=== PATIENT | female | born 1930 | race Hispanic/Latino ===

== ENCOUNTER 2017-10-31 10:05 | Inpatient (IN) | payer MEDICARE, BC ==
[2017-10-31] MEDS ORDERED: Morphine 4 MG/ML VIAL IV ONE (11:19)
[2017-10-31] MEDS ORDERED: Lidocaine 2% Inj (20ml) INFIL ONE (11:25)
[2017-10-31] MEDS ORDERED: Lidocaine 2% PF (10 ml) Amp INFIL ONE (11:45)
[2017-10-31 11:51] LABS: BASO % 0.3 % (0.0-2.0); EOS % 0.2 % (0.0-4.0); HEMOGLOBIN 12.1 g/dL (11.0-16.0); LYMPH # 1.1 K/uL (1.0-4.3); LYMPH % 10.8 % (20.0-40.0); MEAN CELL VOLUME 91.8 fL (81.0-99.0); MEAN CORPUSCULAR HEMOGLOBIN 30.2 pg (27.0-31.0); MEAN CORPUSCULAR HGB CONC 32.9 g/dL (33.0-37.0); MEAN PLATELET VOLUME 8.8 fL (7.2-11.7); MONO # 0.7 K/uL (0.0-0.8); MONO % 6.8 % (0.0-10.0); NEUT # 8.2 K/uL (1.8-7.0); NEUT % 81.9 % (50.0-75.0); RBC 4.01 Mil/uL (3.80-5.20); RED CELL DISTRIBUTION WIDTH 14.6 % (11.5-14.5); WHITE BLOOD COUNT 10.1 K/uL (4.8-10.8)
[2017-10-31 12:06] LABS: ALB/GLOB RATIO 1.5 (1.0-2.1); CALCIUM 9.6 mg/dl (8.6-10.4)
--- NOTE | 2017-10-31 13:55 | C.PDOC ---
History Of Present Illness 87 year old female, whose PMHx includes HTN (compliant with medication), Depression and Anxiety, presents to the ED for evaluation of pain and swelling to her left wrist which began after she sustained a fall yesterday. Patient states she fell onto her outstretched hand on her kitchen floor. She notes 8/10 pain to the site. She denies head injury, LOC, extremity numbness/weakness. Time Seen by Provider: 10/31/17 10:17 Chief Complaint (Nursing): Upper Extremity Problem/Injury History Per: Patient History/Exam Limitations: no limitations Onset/Duration Of Symptoms: Hrs Current Symptoms Are (Timing): Still Present Quality: "Pain" Pain Scale Rating Of: 8 Additional History Per: Patient Past Medical History Reviewed: Historical Data, Nursing Documentation, Vital Signs Vital Signs: Last Vital Signs Temp 98.4 F 10/31/17 16:06 Pulse 75 10/31/17 16:06 Resp 18 10/31/17 16:06 BP 109/67 10/31/17 16:06 Pulse Ox 100 10/31/17 16:32 - Medical History PMH: Anxiety, Depression, HTN, Hypercholesterolemia Surgical History: No Surg Hx Family History: States: Unknown Family Hx - Social History Hx Alcohol Use: No Hx Substance Use: No - Immunization History Hx Tetanus Toxoid Vaccination: No Hx Influenza Vaccination: No Hx Pneumococcal Vaccination: No Review Of Systems Musculoskeletal: Positive for: Other (left wrist pain ) Neurological: Negative for: Weakness, Numbness, Other (head injury, LOC ) Physical Exam - Physical Exam Appears: Non-toxic, No Acute Distress Skin: Warm, Dry, Other (blue discoloration to left wrist. no skin breakdown ) Extremity: Normal ROM (fingers of left hand ), Capillary Refill (less than 2 seconds ), Deformity (left wrist ) Pulses: Left Radial: Normal Neurological/Psych: Oriented x3, Normal Speech, Normal Cognition, Normal Sensation ED Course And Treatment - Laboratory Results Result Diagrams: 10/31/17 11:45 10/31/17 11:45 ECG: Interpreted By Me, Viewed By Me ECG Rhythm: Sinus Rhythm, R BBB Rate From EC O2 Sat by Pulse Oximetry: 100 (on RA) Pulse Ox Interpretation: Normal - Other Rad CXR X-Ray: Interpreted by Me, Viewed By Me, Read By Radiologist Interpretation: Chest x-ray single frontal view. History: Shortness of breath. Comparison: None available. Findings: Biapical pleural thickening with upper lobe granulomatous changes. Diffuse increased interstitial lung markings. Mild patchy increased markings at the lung bases. Tortuous aorta. Top normal heart size. Degenerative changes in the spine. Impression: Biapical pleural thickening with upper lobe granulomatous changes. Diffuse increased interstitial lung markings. Mild patchy increased markings at the lung bases. Tortuous aorta. Top normal heart size. wrist XR X-Ray: Interpreted by Me, Viewed By Me, Read By Radiologist Interpretation: PROCEDURE: Left Wrist Radiographs. . HISTORY: post reduction. COMPARISON: Pre reduction x-ray left wrist. FINDINGS: BONES: A comminuted distal radial metaphyseal -epiphyseal fracture with impaction and overriding extension to the radiocarpal joint is noted. The bulk of the fracture is mostly towards the oriented. A volar apical fracture fragment is noted. Examination is made through casting material. JOINTS: No dislocation. First carpal metacarpal joint osteoarthrosis. First through metacarpal phalangeal joint osteoarthrosis. Second through 5th interphalangeal joint arthrosis. SOFT TISSUES: Normal. OTHER FINDINGS: None. IMPRESSION: Postreduction of a comminuted, impacted, otherwise nondisplaced distal radial fractures with radiocarpal joint extension. left forearm XR X-Ray: Interpreted by Me, Viewed By Me, Read By Radiologist Interpretation: PROCEDURE: Radiographs of the Left Forearm. HISTORY: fall. COMPARISON: Left wrist same day. TECHNIQUE: Frontal and lateral views obtained. FINDINGS: BONES: The comminuted distal radial metaphyseal to epiphyseal fracture with radiocarpal joint extension and mild impaction is renoted. JOINT SPACES: Incidentally noted are 1st carpal metacarpal joint osteoarthritic changes. OTHER FINDINGS: None. IMPRESSION: Distal radial comminuted fracture with radiocarpal joint extension. The fracture fragments are slightly impacted. No further displacement the appreciated. left wrist XR X-Ray: Interpreted by Me, Viewed By Me, Read By Radiologist Interpretation: PROCEDURE: Left Wrist Radiographs. . HISTORY: fall. COMPARISON: None. FINDINGS: BONES: A comminuted distal radial metaphyseal - epiphyseal fracture with impaction is present. Extension into the radiocarpal joint is noted. The bulk of the fracture is mostly slightly dorsally oriented A volar apical fracture fragment is noted. JOINTS: Normal. No dislocation. SOFT TISSUES: Normal. OTHER FINDINGS: None. IMPRESSION: Distal radial comminuted fracture with impaction and radiocarpal joint extension. Apart from the impaction no additional significant appearing displacement suggested Orthopedic Time Out: Side verified, Site verified, Patient ID confirmed Procedure: Fracture reduction Location: Wrist (left) Performed by: Attending Physician Type: Closed Other:: hematoma block Anesthetic: Lidocaine 2% (10 mL) Systemic Analgesia: Morphine (2mg) Capillary refill: Normal Patient tolerated procedure: Well Notes:: sugar tong splint applied Medical Decision Making Medical Decision Making: Progress: Bloodwork, CXR, EKG, CT upper extremity, left wrist XR, left elbow XR ordered and reviewed. Case discussed with Dr. Laguna (orthopedist corporate operations compliance manager), who asks for patent to be admitted to the OR so he can perform a full closure reduction under anesthesia. Case discussed with Dr. Rosales (patient's PMD), who agrees to admit the patient. Disposition Discussed With Dr.: Tyrone Laguna Counseled Patient/Family Regarding: Diagnosis - Disposition Disposition: HOSPITALIZED Disposition Time: 13:53 Condition: STABLE - POA Present On Arrival: None - Clinical Impression Clinical Impression: Fracture of bone, Colles' fracture - Scribe Statement The provider has reviewed the documentation as recorded by the Scribe (Lauren Silva) Provider Attestation: All medical record entries made by the Scribe were at my direction and personally dictated by me. I have reviewed the chart and agree that the record accurately reflects my personal performance of the history, physical exam, medical decision making, and the department course for this patient. I have also personally directed, reviewed, and agree with the discharge instructions and disposition. Decision To Admit - Pt Status Changed To: Hospital Disposition Of: Observation - . Bed Request Type: Regular Patient Diagnosis: Fracture of bone, Colles' fracture
--- NOTE | 2017-10-31 14:30 | RAD ---
Chest x-ray single frontal view History: Shortness of breath. Comparison: None available. Findings: Biapical pleural thickening with upper lobe granulomatous changes. Diffuse increased interstitial lung markings. Mild patchy increased markings at the lung bases. Tortuous aorta. Top normal heart size. Degenerative changes in the spine. Impression: Biapical pleural thickening with upper lobe granulomatous changes. Diffuse increased interstitial lung markings. Mild patchy increased markings at the lung bases. Tortuous aorta. Top normal heart size.
--- NOTE | 2017-10-31 14:54 | CP.PCM.HP ---
History of Present Illness - History of Present Illness History of Present Illness: Chief Complaint: fell on left arm Ms. Brantley is a 87 year old female with PMHx of HTN, Hypothyroidism, and Dementia presented to the ED s/p fall. Patient's sister, Kei, is POA she reports, patient was finishing up washing dishes, when she turned, became unbalanced and fell onto her left arm. Initially the patient refused to come to the ED but Kei noticed her arm was bruised, swollen, and painful to touch. Denied any LOC, headache, trauma to her elbow, or bilateral knees. Kei reports patient had 17 falls in 2017 due to the patient's unsteady gait. Patient refuses to use cane or walker to help support herself. 12 point ROS unremarkable , unless otherwise noted. PMHx: HTN, Hypothyroidism, Dementia PSHx: Denied Meds: As per OCT, reviewed and confirmed All: NKDA SHx: Denied any tobacco, ETOH, or illicit drug use FHx: Unremarkable POA: Kei Winchester - sister - [phone] Present on Admission - Present on Admission Any Indicators Present on Admission: No Past Patient History - Past Social History Smoking Status: Never Smoked - CARDIAC Hx Hypercholesterolemia: Yes Hx Hypertension: Yes - PSYCHIATRIC Hx Anxiety: Yes Hx Depression: Yes Hx Substance Use: No Meds Allergies/Adverse Reactions: Allergies Allergy/AdvReac Type Severity Reaction Status Date / Time No Known Allergies Allergy Verified 10/31/17 10:15 Physical Exam - Constitutional Appears: No Acute Distress - Head Exam Head Exam: NORMAL INSPECTION, NORMOCEPHALIC - Eye Exam Eye Exam: EOMI, Normal appearance, PERRL Pupil Exam: NORMAL ACCOMODATION - ENT Exam ENT Exam: Mucous Membranes Moist, Normal Exam - Neck Exam Neck exam: Positive for: Normal Inspection - Respiratory Exam Respiratory Exam: Clear to Auscultation Bilateral, NORMAL BREATHING PATTERN - Cardiovascular Exam Cardiovascular Exam: REGULAR RHYTHM - GI/Abdominal Exam GI & Abdominal Exam: Normal Bowel Sounds, Soft. absent: Distended, Tenderness - Rectal Exam Rectal Exam: Deferred - Extremities Exam Extremities exam: Positive for: normal inspection, pedal pulses present. Negative for: pedal edema, tenderness - Expanded Upper Extremities Exam Left Shoulder exam: absent: deformity, dislocation, ecchymosis, erythema, swelling, tenderness, tenderness over AC joint Neuro motor exam: finger 2-5 abduction intact, thumb abduction Neurosensory exam: 2-poit discrimination Vascular exam: radial pulse, normal capillary refill (Patient was seen s/p reduction, left arm candelaria bandaged and placed in sling ) - Neurological Exam Neurological exam: Alert, CN II-XII Intact, Oriented x3 - Psychiatric Exam Psychiatric exam: Normal Affect, Normal Mood - Skin Skin Exam: Dry, Intact, Normal Color, Warm Results - Vital Signs Recent Vital Signs: Last Vital Signs Temp 97.9 F 10/31/17 14:15 Pulse 72 10/31/17 14:15 Resp 18 10/31/17 14:15 BP 120/68 10/31/17 14:15 Pulse Ox 100 10/31/17 14:15 - Labs Result Diagrams: 10/31/17 11:45 10/31/17 11:45 Labs: Laboratory Results - last 24 hr 10/31/17 10/31/17 10/31/17 11:45 11:45 12:35 WBC 10.1 RBC 4.01 Hgb 12.1 Hct 36.8 MCV 91.8 MCH 30.2 MCHC 32.9 L RDW 14.6 H Plt Count 157 MPV 8.8 Neut % (Auto) 81.9 H Lymph % (Auto) 10.8 L [place] % (Auto) 6.8 Eos % (Auto) 0.2 Baso % (Auto) 0.3 Neut # (Auto) 8.2 H Lymph # (Auto) 1.1 [place] # (Auto) 0.7 Eos # (Auto) 0.0 Baso # (Auto) 0.0 Sodium 140 Potassium 5.0 Chloride 106 Carbon Dioxide 23 Anion Gap 17 BUN 42 H Creatinine 1.3 H Est GFR ( Amer) 47 Est GFR (Non-Af Amer) 39 Random Glucose 96 Calcium 9.6 Total Bilirubin 0.6 AST 34 ALT 11 Alkaline Phosphatase 42 Total Protein 6.7 Albumin 4.0 Globulin 2.7 Albumin/Globulin Ratio 1.5 Blood Type A POSITIVE Antibody Screen Negative Assessment & Plan - Assessment and Plan (Free Text) Assessment: Ms. Brantley is a 87 year old female with PMHx of HTN, Hypothyroidism, and Dementia presented to the ED s/p fall with left colles' fracture. Plan: Left Colles Fracture Dr. Laguna consulted - plan for OR tomorrow for closed reduction under anesthesia Patient is medically cleared for conscious sedation for reduction of left colles fracture. Unsteady Gait PT Eval Fall precautions HTN Resumed home medications Hypothyroidism Resumed home medications Dementia Resumed home medications DW Dr. Rosales, Sahara Moody DO, PGY-1
--- NOTE | 2017-10-31 14:54 | RAD ---
PROCEDURE: Left Wrist Radiographs. HISTORY: post reduction COMPARISON: Pre reduction x-ray left wrist FINDINGS: BONES: A comminuted distal radial metaphyseal -epiphyseal fracture with impaction and overriding extension to the radiocarpal joint is noted. The bulk of the fracture is mostly towards the oriented. A volar apical fracture fragment is noted. Examination is made through casting material. JOINTS: No dislocation First carpal metacarpal joint osteoarthrosis. First through metacarpal phalangeal joint osteoarthrosis. Second through 5th interphalangeal joint arthrosis. SOFT TISSUES: Normal. OTHER FINDINGS: None. IMPRESSION: Postreduction of a comminuted, impacted, otherwise nondisplaced distal radial fractures with radiocarpal joint extension.
--- NOTE | 2017-10-31 14:57 | RAD ---
PROCEDURE: Left Wrist Radiographs. HISTORY: fall COMPARISON: None. FINDINGS: BONES: A comminuted distal radial metaphyseal -epiphyseal fracture with impaction is present. Extension into the radiocarpal joint is noted. The bulk of the fracture is mostly slightly dorsally oriented A volar apical fracture fragment is noted. JOINTS: Normal. No dislocation. SOFT TISSUES: Normal. OTHER FINDINGS: None. IMPRESSION: Distal radial comminuted fracture with impaction and radiocarpal joint extension. Apart from the impaction no additional significant appearing displacement suggested
[2017-10-31] MEDS ORDERED: Sodium Chloride 0.9% 1,000 ML IV SCH (15:15)
--- NOTE | 2017-10-31 15:57 | RAD ---
PROCEDURE: Radiographs of the Left Forearm HISTORY: fall COMPARISON: Left wrist same day TECHNIQUE: Frontal and lateral views obtained. FINDINGS: BONES: The comminuted distal radial metaphyseal to epiphyseal fracture with radiocarpal joint extension and mild impaction is renoted. JOINT SPACES: Incidentally noted are 1st carpal metacarpal joint osteoarthritic changes OTHER FINDINGS: None. IMPRESSION: Distal radial comminuted fracture with radiocarpal joint extension. The fracture fragments are slightly impacted. No further displacement the appreciated.
[2017-10-31 16:17] LABS: INR 0.9; PROTHROMBIN TIME 10.4 SECONDS (9.7-12.2)
--- NOTE | 2017-10-31 16:36 | RAD ---
PROCEDURE: Radiographs of the left elbow. HISTORY: fall COMPARISON: No prior. FINDINGS: BONES: No cortical line fracture. . Tiny 1 to 2 mm ossifications posterior to the olecranon over some minimal fullness of the soft tissues here noted tiny flake chip osseous avulsions versus tiny loose bodies in the olecranon bursa are considerations. No radial head fracture noted. Ulnar coronoid spurring noted JOINTS: Normal. No osteoarthritis. SOFT TISSUES: Normal. JOINT EFFUSION: No anterior elbow joint effusion. Trace soft tissue fullness in the olecranon bursa location -a minimal olecranon bursitis here is possible OTHER FINDINGS: None IMPRESSION: No cortical line fractures seen. Elbow arthrosis No anterior elbow joint effusion. Possible small olecranon bursitis with tiny calcifications/ossifications here. Differential are tiny chip osseous avulsions tiny loose bodies olecranon bursal. The chronicity is not known.
--- NOTE | 2017-10-31 18:55 | CT ---
PROCEDURE: CT left wrist dated 10/31/2017 HISTORY: Left wrist fracture COMPARISON: Correlation made with prior radiographs earlier same day TECHNIQUE: Contiguous helical/transaxial images of the left left wrist obtained. Coronal and sagittal reformats were generated. This CT exam was performed using one or more of the following dose reduction techniques: Automated exposure control, adjustment of the mA and/or kV according to patient size, and/or use of iterative reconstruction technique. Radiation dose. Total DLP = 159.73 mGy -cm FINDINGS: BONES: Re- demonstrated is a comminuted impacted fracture of the distal right radius with slight dorsal displacement of distal fragments. No other fractures are identified. There are cystic changes seen in the lunate. Mild degenerative osteoarthritis the 1st metacarpal/ greater multangular articulation. There may also be some also appears to be some minor triscaphe degenerative osteoarthritis as well. Mild surrounding soft tissue swelling. No radiopaque foreign bodies. IMPRESSION: Comminuted slightly impacted fracture distal left radius. No other fractures. Cystic changes seen within the lunate bone. Mild degenerative osteoarthritis as detailed above.
--- NOTE | 2017-10-31 20:08 | CP.PCM.CON ---
History of Present Illness - History of Present Illness History of Present Illness: 87 year old female with PMH= HTN, Hypothyroidism, and Dementia presented to the ED s/p fall. Patient's sister, Kei, is [place] she reports, patient was finishing up washing dishes, when she turned, became unbalanced and fell onto her left arm. Initially the patient refused to come to the ED but Kei noticed her arm was bruised, swollen, and painful to touch. Denied any LOC, headache, trauma to her elbow, or bilateral knees. Kei reports patient had 17 falls in 2017 due to the patient's unsteady gait. Patient refuses to use cane or walker to help support herself. 12 point ROS unremarkable, unless otherwise noted. After evaluation by ER staff and review of imaging, she was diagnosed with R wrist displaced distal radius fracture with significant comminution. Orthopedic consultation was placed and I evaluated the pt as an inpt 10/31/17. She was placed in a long arm splint by ER staff and admitted to the medical service under Dr Rosales. She would need placement and disposition help. During the admission, she would also undergo closed treatment of the fracture with manipulation to provide better alignment for the fracture to heal as she was not a good candidate for any surgery/ ORIF. Review of imaging: Xrays R wrist done in ER 10/31/17: +++ displaced/comminuted distal radius fracture with loss of radial height/tilt, loss of wrist alignment and subluxation of wrist joint. Past Patient History - Past Social History Smoking Status: Never Smoked - CARDIAC Hx Hypercholesterolemia: Yes Hx Hypertension: Yes - PSYCHIATRIC Hx Anxiety: Yes Hx Depression: Yes Hx Substance Use: No Meds Home Medications: Home Medication List Medication Instructions Recorded Confirmed Type Acetaminophen [Tylenol 325mg tab] 650 mg PO Q6 PRN tab 11/05/17 Rx Pantoprazole [Protonix EC Tab] 40 mg PO DAILY ect 11/05/17 Rx Allergies/Adverse Reactions: Allergies Allergy/AdvReac Type Severity Reaction Status Date / Time No Known Allergies Allergy Verified 10/31/17 10:15 - Medications Medications: Current Medications Docusate Sodium (Colace) 100 mg PO BID [facility] Last Admin: 10/31/17 18:08 Dose: 100 mg Enalapril Maleate (Vasotec) 5 mg PO DAILY [facility] Sodium Chloride (Sodium Chloride 0.9%) 1,000 mls @ 100 mls/hr IV .Q10H [facility]ORY Stop: 11/01/17 01:14 Last Admin: 10/31/17 15:18 Dose: 100 mls/hr Ibuprofen (Motrin Tab) 400 mg PO Q8H PRN PRN Reason: Pain, Mild (1-3) Levothyroxine Sodium (Synthroid) 50 mcg PO 0630 [facility] Kim Carbonate (Kim Carbonate 300mg) 300 mg PO DAILY [facility] Memantine (Namenda) 10 mg PO DAILY [facility] Pantoprazole Sodium (Protonix Ec Tab) 40 mg PO DAILY [facility] Results - Vital Signs Recent Vital Signs: Last Vital Signs Temp 98.5 F 10/31/17 16:30 Pulse 76 10/31/17 16:30 Resp 18 10/31/17 16:30 BP 128/64 10/31/17 16:30 Pulse Ox 100 10/31/17 16:36 - Labs Result Diagrams: 10/31/17 11:45 11/01/17 06:19 Labs: Laboratory Results - last 24 hr 10/31/17 10/31/17 10/31/17 11:45 11:45 12:35 WBC 10.1 RBC 4.01 Hgb 12.1 Hct 36.8 MCV 91.8 MCH 30.2 MCHC 32.9 L RDW 14.6 H Plt Count 157 MPV 8.8 Neut % (Auto) 81.9 H Lymph % (Auto) 10.8 L [place] % (Auto) 6.8 Eos % (Auto) 0.2 Baso % (Auto) 0.3 Neut # (Auto) 8.2 H Lymph # (Auto) 1.1 [place] # (Auto) 0.7 Eos # (Auto) 0.0 Baso # (Auto) 0.0 PT INR APTT Sodium 140 Potassium 5.0 Chloride 106 Carbon Dioxide 23 Anion Gap 17 BUN 42 H Creatinine 1.3 H Est GFR ( Amer) 47 Est GFR (Non-Af Amer) 39 Random Glucose 96 Calcium 9.6 Total Bilirubin 0.6 AST 34 ALT 11 Alkaline Phosphatase 42 Total Protein 6.7 Albumin 4.0 Globulin 2.7 Albumin/Globulin Ratio 1.5 Blood Type A POSITIVE Antibody Screen Negative 10/31/17 16:03 WBC RBC Hgb Hct MCV MCH MCHC RDW Plt Count MPV Neut % (Auto) Lymph % (Auto) [place] % (Auto) Eos % (Auto) Baso % (Auto) Neut # (Auto) Lymph # (Auto) [place] # (Auto) Eos # (Auto) Baso # (Auto) PT 10.4 INR 0.9 APTT 29 Sodium Potassium Chloride Carbon Dioxide Anion Gap BUN Creatinine Est GFR ( Amer) Est GFR (Non-Af Amer) Random Glucose Calcium Total Bilirubin AST ALT Alkaline Phosphatase Total Protein Albumin Globulin Albumin/Globulin Ratio Blood Type Antibody Screen Assessment & Plan (1) Colles' fracture Assessment and Plan: 87 yo female, s/p fall at home landing on Left wrist 10/30/17, admitted through ER at on 10/31/17, Dx= Left wrist displaced distal radius fracture/ dislocation PLAN: Left wrist: -indicated for closed reduction under sedation/ anesthesia and placement in long arm splint vs cast -risks, benefits, alternatives d/w pt at length, all questions answered -best chance of obtaining anatomic closed reduction of distal radius fracture and avoiding ORIF / open surgery / fixation is to undergo the closed reduction under anesthesia this admission before healing begins and closed manipulation of the fracture is not likely -placed on OR schedule for 1st case in morning, 7 AM -NPO after 10pm -IVFH -hold DVT proph till after procedure -medical clearance/optimization needed, Dr. Rosales is PCP -strict NWB/elevation L wrist above level of heart -pain control, minimize narcotic use, consider standing tyelnol 1000mg Q8hr -will follow -will work with SW/CM to determine optimal placement after procedure as pt is severely deconditioned. -please contact me at [phone] with any updates, questions, or concerns Thank you for allowing me to contribute to the care of your patient. Tyrone Guerin MD Orthopedic Surgery Status: Acute
[2017-11-01] MEDS: Levothyroxine 50 MCG TAB PO SCH (05:33)
[2017-11-01 07:09] LABS: CALCIUM 8.6 mg/dl (8.6-10.4)
[2017-11-01] MEDS ORDERED: Etomidate 20 mg/10ml Inj IV ONE (07:24)
[2017-11-01] MEDS ORDERED: Propofol 10 mg/ml Inj (20 ML) ONE (07:25)
[2017-11-01] MEDS ORDERED: Morphine 4 MG/ML VIAL ONE ×2 (07:48→07:51)
[2017-11-01] MEDS ORDERED: Lactated Ringer's 1,000 ML IV ONE (08:07)
[2017-11-01] MEDS: Pantoprazole 40 mg EC Tab PO SCH (10:22)
--- NOTE | 2017-11-01 10:23 | CP.PCM.PN ---
Subjective - Date & Time of Evaluation Date of Evaluation: 11/01/17 Time of Evaluation: 09:00 - Subjective Subjective: Patient was seen and examined at bedside. Patient is s/p closed reduction with anesthesia. Pain is well controlled. Patient worked with PT and it was recommended patient go to [facility] due to her unsteady gait. 12 point ROS unremarkable. Objective - Vital Signs/Intake and Output Vital Signs (last 24 hours): Temp Pulse Resp BP Pulse Ox 98 F 64 18 114/55 L 98 11/01/17 09:35 11/01/17 09:35 11/01/17 09:35 11/01/17 09:35 11/01/17 09:35 Intake and Output: 11/01/17 11/01/17 06:59 18:59 Intake Total 400 Balance 400 - Medications Medications: Current Medications Docusate Sodium (Colace) 100 mg PO BID [facility] Last Admin: 10/31/17 18:08 Dose: 100 mg Enalapril Maleate (Vasotec) 5 mg PO DAILY [facility] Ibuprofen (Motrin Tab) 400 mg PO Q8H PRN PRN Reason: Pain, Mild (1-3) Levothyroxine Sodium (Synthroid) 50 mcg PO 0630 [facility] Last Admin: 11/01/17 05:33 Dose: 50 mcg [place] Carbonate ([place] Carbonate 300mg) 300 mg PO HS [facility] Last Admin: 10/31/17 22:19 Dose: 300 mg Memantine (Namenda) 10 mg PO Q12H [facility] Last Admin: 10/31/17 22:19 Dose: 10 mg Pantoprazole Sodium (Protonix Ec Tab) 40 mg PO DAILY [facility] - Labs Labs: 10/31/17 11:45 11/01/17 06:19 PT 10.4 SECONDS (9.7-12.2) 10/31/17 16:03 INR 0.9 10/31/17 16:03 APTT 29 SECONDS (21-34) 10/31/17 16:03 - Constitutional Appears: No Acute Distress - Head Exam Head Exam: NORMAL INSPECTION, NORMOCEPHALIC - Eye Exam Eye Exam: EOMI, Normal appearance, PERRL Pupil Exam: NORMAL ACCOMODATION - ENT Exam ENT Exam: Mucous Membranes Moist, Normal Exam - Neck Exam Neck Exam: Normal Inspection - Respiratory Exam Respiratory Exam: Clear to Ausculation Bilateral, NORMAL BREATHING PATTERN - Cardiovascular Exam Cardiovascular Exam: REGULAR RHYTHM - GI/Abdominal Exam GI & Abdominal Exam: Soft, Normal Bowel Sounds. absent: Distended, Tenderness - Rectal Exam Rectal Exam: Deferred - Extremities Exam Extremities Exam: Normal Inspection. absent: Pedal Edema, Tenderness - Neurological Exam Neurological Exam: Alert, Awake, Oriented x3 - Psychiatric Exam Psychiatric exam: Normal Affect, Normal Mood - Skin Skin Exam: Dry, Intact, Normal Color, Warm Assessment and Plan - Assessment and Plan (Free Text) Assessment: Ms. Brantley is a 87 year old female with PMHx of HTN, Hypothyroidism, and Dementia presented to the ED s/p fall with left colles' fracture. Plan: Left Colles Fracture Patient is medically cleared for conscious sedation for reduction of left colles fracture Dr. Laguna consulted - S/P closed reduction under anesthesia 11/01/17 Unsteady Gait PT Eval - recommend FRANCISCO - working with case management for authorization and placement Fall precautions HTN Resumed home medications Hypothyroidism Resumed home medications Dementia Resumed home medications DW Dr. Rosales, Sahara Moody DO, PGY-1
--- NOTE | 2017-11-01 11:13 | RAD ---
PROCEDURE: Intraoperative Fluoroscopy. HISTORY: Left forearm fracture FINDINGS: Fluoroscopic assistance was provided for left distal radial fracture closed reduction. Please refer to the operative report from LEODAN Cabezas, , MD SARAHI.
--- NOTE | 2017-11-01 13:35 | CARD ---
APPROVED REPORT EKG Measurement Heart [id number] LA [id number] <Conclusion> Normal sinus rhythm Right bundle branch block Abnormal ECG
[2017-11-02] MEDS: Levothyroxine 50 MCG TAB PO SCH (05:50)
[2017-11-02] MEDS: Pantoprazole 40 mg EC Tab PO SCH (10:22)
--- NOTE | 2017-11-02 18:02 | CP.PCM.PN ---
Subjective - Date & Time of Evaluation Date of Evaluation: 11/02/17 Time of Evaluation: 18:01 - Subjective Subjective: patient comfortable complaining ofy of pain in the lefthand. no nausea vomiting Poor intake Ally unstable 10/31/17 11:45 11/01/17 06:19 Temp Pulse Resp BP Pulse Ox 98.1 F 80 20 104/61 96 11/02/17 15:00 11/02/17 15:00 11/02/17 15:00 11/02/17 15:00 11/02/17 15:00 87 female schizophrenia bipolar On lithium Left radial fracture status post a closed reduction For rehabilitation evaluation Objective - Vital Signs/Intake and Output Vital Signs (last 24 hours): Temp Pulse Resp BP Pulse Ox 98.1 F 80 20 104/61 96 11/02/17 15:00 11/02/17 15:00 11/02/17 15:00 11/02/17 15:00 11/02/17 15:00 - Medications Medications: Current Medications Acetaminophen (Tylenol 325mg Tab) 650 mg PO Q6 PRN PRN Reason: Pain, Mild (1-3) Docusate Sodium (Colace) 100 mg PO BID [facility] Last Admin: 11/02/17 17:56 Dose: 100 mg Enalapril Maleate (Vasotec) 5 mg PO DAILY [facility] Last Admin: 11/02/17 10:22 Dose: 5 mg Levothyroxine Sodium (Synthroid) 50 mcg PO 0630 [facility] Last Admin: 11/01/17 05:33 Dose: 50 mcg [place] Carbonate ([place] Carbonate 300mg) 300 mg PO HS [facility] Last Admin: 11/01/17 22:06 Dose: 300 mg Memantine (Namenda) 10 mg PO Q12H [facility] Last Admin: 11/02/17 09:15 Dose: 10 mg Pantoprazole Sodium (Protonix Ec Tab) 40 mg PO DAILY [facility] Last Admin: 11/02/17 10:22 Dose: 40 mg - Labs Labs: 10/31/17 11:45 11/01/17 06:19 PT 10.4 SECONDS (9.7-12.2) 10/31/17 16:03 INR 0.9 10/31/17 16:03 APTT 29 SECONDS (21-34) 10/31/17 16:03
[2017-11-03] MEDS: Levothyroxine 50 MCG TAB PO SCH (06:02)
[2017-11-03] MEDS: Pantoprazole 40 mg EC Tab PO SCH (09:21)
[2017-11-04] MEDS: Levothyroxine 50 MCG TAB PO SCH (05:57)
[2017-11-04] MEDS: Pantoprazole 40 mg EC Tab PO SCH (09:55)
--- NOTE | 2017-11-04 10:29 | CP.PCM.PN ---
Subjective - Date & Time of Evaluation Date of Evaluation: 11/04/17 Time of Evaluation: 09:00 - Subjective Subjective: Patient was seen admitted and examined at bedside. Patient is s/p closed reduction with anesthesia on 11/01/17. Pain is well controlled. Patient worked with PT and it was recommended patient go to [facility] due to her unsteady gait. 12 point ROS unremarkable. Pending [facility] approval - anticipate discharge tomorrow 11/05/17. Objective - Vital Signs/Intake and Output Vital Signs (last 24 hours): Temp Pulse Resp BP Pulse Ox 98 F 80 18 92/52 L 97 11/04/17 08:20 11/04/17 09:54 11/04/17 08:20 11/04/17 09:54 11/04/17 08:20 - Medications Medications: Current Medications Acetaminophen (Tylenol 325mg Tab) 650 mg PO Q6 PRN PRN Reason: Pain, Mild (1-3) Last Admin: 11/03/17 23:24 Dose: 650 mg Docusate Sodium (Colace) 100 mg PO BID [facility] Last Admin: 11/04/17 09:55 Dose: 100 mg Enalapril Maleate (Vasotec) 5 mg PO DAILY [facility] Last Admin: 11/04/17 09:55 Dose: Not Given Levothyroxine Sodium (Synthroid) 50 mcg PO 0630 [facility] Last Admin: 11/04/17 05:57 Dose: 50 mcg [place] Carbonate ([place] Carbonate 300mg) 300 mg PO HS [facility] Last Admin: 11/03/17 21:25 Dose: 300 mg Memantine (Namenda) 10 mg PO Q12H [facility] Last Admin: 11/04/17 09:55 Dose: 10 mg Pantoprazole Sodium (Protonix Ec Tab) 40 mg PO DAILY [facility] Last Admin: 11/04/17 09:55 Dose: 40 mg - Labs Labs: 10/31/17 11:45 11/01/17 06:19 PT 10.4 SECONDS (9.7-12.2) 10/31/17 16:03 INR 0.9 10/31/17 16:03 APTT 29 SECONDS (21-34) 10/31/17 16:03 - Additional Findings Additional findings: - Constitutional Appears: No Acute Distress - Head Exam Head Exam: NORMAL INSPECTION, NORMOCEPHALIC - Eye Exam Eye Exam: EOMI, Normal appearance, PERRL Pupil Exam: NORMAL ACCOMODATION - ENT Exam ENT Exam: Mucous Membranes Moist, Normal Exam - Neck Exam Neck Exam: Normal Inspection - Respiratory Exam Respiratory Exam: Clear to Ausculation Bilateral, NORMAL BREATHING PATTERN - Cardiovascular Exam Cardiovascular Exam: REGULAR RHYTHM - GI/Abdominal Exam GI & Abdominal Exam: Soft, Normal Bowel Sounds. absent: Distended, Tenderness - Rectal Exam Rectal Exam: Deferred - Extremities Exam Extremities Exam: Normal Inspection. Left arm in cast, candelaria bandage. Full ROM of digits. absent: Pedal Edema, Tenderness - Neurological Exam Neurological Exam: Alert, Awake, Oriented x3 - Psychiatric Exam Psychiatric exam: Normal Affect, Normal Mood - Skin Skin Exam: Dry, Intact, Normal Color, Warm Assessment and Plan - Assessment and Plan (Free Text) Assessment: Ms. Brantley is a 87 year old female with PMHx of HTN, Hypothyroidism, Bipolar Disorder and Dementia presented to the ED s/p fall with left colles' fracture. Plan: Left Colles Fracture Patient is medically cleared for conscious sedation for reduction of left colles fracture Dr. Laguna consulted - S/P closed reduction under anesthesia 11/01/17 Unsteady Gait PT Eval - recommend FRANCISCO - working with case management for authorization and placement- anticipate discharge tomorrow 11/05/17 Fall precautions HTN Resumed home medications Hypothyroidism Resumed home medications Bipolar Disorder Resumed home medications Dementia Resumed home medications DW Dr. Rosales, Saahra Moody DO, PGY-1
--- NOTE | 2017-11-04 11:56 | CP.PCM.PN ---
Subjective - Date & Time of Evaluation Date of Evaluation: 11/04/17 Time of Evaluation: 13:46 - Subjective Subjective: Ortho f/u Dr. Barrios Patient states she has pain in her wrist but it is controlled. Denies numbness/ tinglign. Objective - Vital Signs/Intake and Output Vital Signs (last 24 hours): Temp Pulse Resp BP Pulse Ox 98 F 80 18 92/52 L 97 11/04/17 08:20 11/04/17 09:54 11/04/17 08:20 11/04/17 09:54 11/04/17 08:20 - Medications Medications: Current Medications Acetaminophen (Tylenol 325mg Tab) 650 mg PO Q6 PRN PRN Reason: Pain, Mild (1-3) Last Admin: 11/03/17 23:24 Dose: 650 mg Docusate Sodium (Colace) 100 mg PO BID [facility] Last Admin: 11/04/17 09:55 Dose: 100 mg Enalapril Maleate (Vasotec) 5 mg PO DAILY [facility] Last Admin: 11/04/17 09:55 Dose: Not Given Levothyroxine Sodium (Synthroid) 50 mcg PO 0630 [facility] Last Admin: 11/04/17 05:57 Dose: 50 mcg [place] Carbonate ([place] Carbonate 300mg) 300 mg PO HS [facility] Last Admin: 11/03/17 21:25 Dose: 300 mg Memantine (Namenda) 10 mg PO Q12H [facility] Last Admin: 11/04/17 09:55 Dose: 10 mg Pantoprazole Sodium (Protonix Ec Tab) 40 mg PO DAILY [facility] Last Admin: 11/04/17 09:55 Dose: 40 mg - Labs Labs: 10/31/17 11:45 11/01/17 06:19 PT 10.4 SECONDS (9.7-12.2) 10/31/17 16:03 INR 0.9 10/31/17 16:03 APTT 29 SECONDS (21-34) 10/31/17 16:03 - Extremities Exam Additional comments: LUE: cast intact, fingers warm, good cap refill. Full ROM fingers/thumb with good strength, sensation intact to med/rad/uln nerves, no swelling to fingers Assessment and Plan (1) Displaced fracture of distal end of left radius Assessment & Plan: POD#3 s/p closed reduction and long arm cast application ortho stable for d/c PT/OT NWB f/u in office in 10-14 days, call for appt [phone] d/w Dr. Barrios, agrees with above Status: Acute
[2017-11-05 00:49] VITALS: RESP 20; O2SAT 96
[2017-11-05] MEDS: Levothyroxine 50 MCG TAB PO SCH (05:48)
--- NOTE | 2017-11-05 07:54 | CP.PCM.DIS ---
Provider - Provider Date of Admission: 11/02/17 13:27 Attending physician: Noe Rosales MD Time Spent in preparation of Discharge (in minutes): 55 Hospital Course - Lab Results Lab Results: Most Recent Lab Values WBC 10.1 K/uL (4.8-10.8) 10/31/17 11:45 RBC 4.01 Mil/uL (3.80-5.20) 10/31/17 11:45 Hgb 12.1 g/dL (11.0-16.0) 10/31/17 11:45 Hct 36.8 % (34.0-47.0) 10/31/17 11:45 MCV 91.8 fL (81.0-99.0) 10/31/17 11:45 MCH 30.2 pg (27.0-31.0) 10/31/17 11:45 MCHC 32.9 g/dL (33.0-37.0) L 10/31/17 11:45 RDW 14.6 % (11.5-14.5) H 10/31/17 11:45 Plt Count 157 K/uL (130-400) 10/31/17 11:45 MPV 8.8 fL (7.2-11.7) 10/31/17 11:45 Neut % (Auto) 81.9 % (50.0-75.0) H 10/31/17 11:45 Lymph % (Auto) 10.8 % (20.0-40.0) L 10/31/17 11:45 [place] % (Auto) 6.8 % (0.0-10.0) 10/31/17 11:45 Eos % (Auto) 0.2 % (0.0-4.0) 10/31/17 11:45 Baso % (Auto) 0.3 % (0.0-2.0) 10/31/17 11:45 Neut # (Auto) 8.2 K/uL (1.8-7.0) H 10/31/17 11:45 Lymph # (Auto) 1.1 K/uL (1.0-4.3) 10/31/17 11:45 [place] # (Auto) 0.7 K/uL (0.0-0.8) 10/31/17 11:45 Eos # (Auto) 0.0 K/uL (0.0-0.7) 10/31/17 11:45 Baso # (Auto) 0.0 K/uL (0.0-0.2) 10/31/17 11:45 PT 10.4 SECONDS (9.7-12.2) 10/31/17 16:03 INR 0.9 10/31/17 16:03 APTT 29 SECONDS (21-34) 10/31/17 16:03 Sodium 141 mmol/L (132-148) 11/01/17 06:19 Potassium 4.8 mmol/L (3.6-5.2) 11/01/17 06:19 Chloride 108 mmol/L (98-107) H 11/01/17 06:19 Carbon Dioxide 25 mmol/L (22-30) 11/01/17 06:19 Anion Gap 12 (10-20) 11/01/17 06:19 BUN 35 mg/dL (7-17) H 11/01/17 06:19 Creatinine 1.3 mg/dL (0.7-1.2) H 11/01/17 06:19 Est GFR ( Amer) 47 11/01/17 06:19 Est GFR (Non-Af Amer) 39 11/01/17 06:19 Random Glucose 88 mg/dL (65-105) 11/01/17 06:19 Calcium 8.6 mg/dl (8.6-10.4) 11/01/17 06:19 Total Bilirubin 0.6 mg/dL (0.2-1.3) 10/31/17 11:45 AST 34 U/L (14-36) 10/31/17 11:45 ALT 11 U/L (9-52) 10/31/17 11:45 Alkaline Phosphatase 42 U/L (38-126) 10/31/17 11:45 Total Protein 6.7 g/dL (6.3-8.3) 10/31/17 11:45 Albumin 4.0 g/dL (3.5-5.0) 10/31/17 11:45 Globulin 2.7 gm/dL (2.2-3.9) 10/31/17 11:45 Albumin/Globulin Ratio 1.5 (1.0-2.1) 10/31/17 11:45 Blood Type A POSITIVE 10/31/17 12:35 Antibody Screen Negative 10/31/17 12:35 - Hospital Course Hospital Course: Upon Admission: Chief Complaint: fell on left arm Ms. Brantley is a 87 year old female with PMHx of HTN, Hypothyroidism, and Dementia presented to the ED s/p fall. Patient's sister, Kei, is POA she reports, patient was finishing up washing dishes, when she turned, became unbalanced and fell onto her left arm. Initially the patient refused to come to the ED but Kei noticed her arm was bruised, swollen, and painful to touch. Denied any LOC, headache, trauma to her elbow, or bilateral knees. Kei reports patient had 17 falls in 2017 due to the patient's unsteady gait. Patient refuses to use cane or walker to help support herself. 12 point ROS unremarkable , unless otherwise noted. PMHx: HTN, Hypothyroidism, Dementia PSHx: Denied Meds: As per MAR, reviewed and confirmed All: NKDA SHx: Denied any tobacco, ETOH, or illicit drug use FHx: Unremarkable POA: Kei Winchester - sister - [phone] Throughout Hospital Course: Ms. Brantley is a 87 year old female with PMHx of HTN, Hypothyroidism, Bipolar Disorder and Dementia presented to the ED s/p fall with left colles' fracture. Plan: Left Colles Fracture Patient is medically cleared for conscious sedation for reduction of left colles fracture Dr. Laguna consulted - S/P closed reduction under anesthesia 11/01/17 PT/OT, NWB f/u in office in 10-14 days, call for appt [phone] Unsteady Gait PT Eval - recommend FRANCISCO - working with case management for authorization and placement Fall precautions HTN Resumed home medications Hypothyroidism Resumed home medications Bipolar Disorder Resumed home medications Dementia Resumed home medications This is a brief summary of the patient's hospital course. Please review EMR for the full record. Discharge Exam - Additional Findings Additional findings: - Constitutional Appears: No Acute Distress - Head Exam Head Exam: NORMAL INSPECTION, NORMOCEPHALIC - Eye Exam Eye Exam: EOMI, Normal appearance, PERRL Pupil Exam: NORMAL ACCOMODATION - ENT Exam ENT Exam: Mucous Membranes Moist, Normal Exam - Neck Exam Neck Exam: Normal Inspection - Respiratory Exam Respiratory Exam: Clear to Ausculation Bilateral, NORMAL BREATHING PATTERN - Cardiovascular Exam Cardiovascular Exam: REGULAR RHYTHM - GI/Abdominal Exam GI & Abdominal Exam: Soft, Normal Bowel Sounds. absent: Distended, Tenderness - Rectal Exam Rectal Exam: Deferred - Extremities Exam Extremities Exam: LUE: cast intact, fingers warm, good cap refill. Full ROM fingers/thumb with good strength, sensation intact to med/rad/uln nerves, no swelling to fingers. absent: Pedal Edema, Tenderness - Neurological Exam Neurological Exam: Alert, Awake, Oriented x3 - Psychiatric Exam Psychiatric exam: Normal Affect, Normal Mood - Skin Skin Exam: Dry, Intact, Normal Color, Warm Discharge Plan - Follow Up Plan Condition: STABLE Disposition: REHAB FACILITY/REHAB UNIT Instructions: Colles' Fracture (DC) Additional Instructions: Please follow up with the Orthopedist Dr. Guerin in 10- 14 days, call for appt [phone] Referrals: Tyrone Laguna MD [Staff Provider] - Noe Rosales MD [Staff Provider] -
[2017-11-05 08:10] VITALS: PULSE 74; TEMP 98.2
[2017-11-05] MEDS: Pantoprazole 40 mg EC Tab PO SCH (10:32)
[2017-11-05 10:33] VITALS: BP 119/74
--- NOTE | 2017-11-09 12:21 | PCM.SURG1 ---
Surgeon's Initial Post Op Note - Surgeon's Notes Surgeon: Tyrone Guerin MD Account Representative: None Type of Anesthesia: General LMA Pre-Operative Diagnosis: Right wrist displaced / comminuted distal radius fracture Operative Findings: Right wrist displaced / comminuted distal radius fracture Post-Operative Diagnosis: Right wrist displaced / comminuted distal radius fracture Operation Performed: Right wrist: #1 closed reduction/ manipulation distal radius fracture. #2 placement in long arm cast Specimen/Specimens Removed: spcimen = none. complications= none. implants= none Estimated Blood Loss: EBL {In ML}: 0 Blood Products Given: N/A Drains Used: No Drains Post-Op Condition: Good Date of Surgery/Procedure: 11/01/17 Time of Surgery/Procedure: 07:00
--- NOTE | 2017-11-11 07:09 | OP ---
PROCEDURE DATE: 11/01/17 PREOPERATIVE DIAGNOSES: Left wrist: 1. Displaced/comminuted distal radius fracture. 2. Subluxation of radiocarpal joint. POSTOPERATIVE DIAGNOSES: Left wrist: 1. Displaced/comminuted distal radius fracture. 2. Subluxation of radiocarpal joint. PROCEDURES: Left wrist: 1. Closed reduction/closed treatment with manipulation of distal radius fracture. 2. Closed reduction/closed treatment with manipulation of radiocarpal subluxation/dislocation. 3. Placement and well-padded long arm cast. SURGEON: Tyrone Guerin MD SEAWEED HARVESTER: None TYPE OF ANESTHESIA: General LMA anesthesia. SPECIMENS: None. COMPLICATIONS: None. IMPLANTS: None. ESTIMATED BLOOD LOSS: 0 mL. DRAINS: None. DISPOSITION: The patient was extubated and transferred to the PACU in stable condition and tolerated the procedure well. INDICATIONS FOR THE PROCEDURE: The patient is an 87-year-old female with a past medical history significant for hypertension, hypothyroidism, and severe dementia who presented to the emergency room at [facility] on 10/31/2017 with left wrist pain and deformity. The patient is demented and her sister, Margi Brantley, is the power of collections attorney. She gave history on her behalf. She stated that while the patient was in the kitchen, she lost her balance when she turned suddenly and fell landing on her left arm. This resulted in immediate pain and swelling and bruising with deformity to the left wrist. Initially, the patient was refusing to leave the house but eventually the next day, there were able to convince her to go the ER. After evaluation by ER staff and reviewed imaging, she was diagnosed with a left wrist displaced distal radius fracture with significant comminution and subluxation of radiocarpal joint. Orthopedic consultation was placed and I evaluated the patient as an inpatient on 10/31/2017. She was admitted to the medical service under Dr. Rosales for the distal radius fracture treatment as well as disposition and placement/evaluation for deconditioning and need for rehabilitation facility placement. I reviewed the imaging with the ER attending and initial instructions to place the patient in a sugar-tong splint, as she was neurovascularly intact, were carried out. The patient had a significant injury, and there was a good chance in a control of setting with adequate anesthesia, we will be able to establish an anatomic closed reduction and placement in a long-arm cast or splint. 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 We also determined after speaking to Dr. Rosales that the patient is not a good candidate for any thought of surgical intervention including any open reduction and internal fixation that would be needed if the fracture was not reduced. She was indicated for left wrist closed reduction of the fracture and the radiocarpal subluxation and placement in a long-arm cast under anesthesia. Dr. Rosales provided medical clearance and the patient was taken to the OR the next morning. Consent was provided by her sister, Margi, who is the power of collections attorney and the risks, benefits and alternatives of the procedure were discussed at length with her. The risk including but not limited to malunion, nonunion, development of compartment syndrome, skin issues from the cast and pressure, contractures, stiffness, and anesthesia reactions. After answering all of her questions stated that she understood the risks and wish to proceed with the procedure. PROCEDURE IN DETAIL: The patient was identified in the preoperative holding area and the left wrist was marked for surgery. Once again as described above, the risks, benefits, and alternatives of the procedure were discussed at length with the patient's power of collections attorney, her sister, Margi. Informed consent was obtained. After a brief discussion with anesthesia staff, the patient was taken to the operating room and placed in a well-padded operating room table with all bony prominences and superficial neurovascular structures well-padded. General LMA anesthesia was placed successfully without any complications. Final timeout was done with the surgeon, anesthesia staff, OR staff, all in agreement with the patient, procedure being done and extremity being operated on. The left finger tips were placed in Kerlix traction from an IV pole with our metallurgical laboratory assistant stabilizing the arm and pulling traction towards the ground. A closed reduction maneuver was carried out after prereduction x-rays were taken with biplanar fluoroscopic imaging showing the displaced/comminuted distal radius fracture and the radiocarpal joint subluxation. The closed reduction maneuver was carried out and the resulting anatomical alignment was confirmed with biplanar fluoroscopic imaging as something can be obtained. A layer of cast padding was then applied and a well-padded long-arm cast was placed. The closed reduction maneuver was carried out once again with a good mold placed on the cast holding the reduction. Biplanar fluoroscopic imaging was then taken to confirm an anatomic reduction of the distal radius fracture and the radiocarpal subluxation/dislocation. Once the cast hardened, the patient was then extubated and transferred to the PACU in stable condition and tolerated the procedure well. DISPOSITION: The patient from orthopedic point of view can be discharged today but due to the deconditioning globally as she has demonstrated, she would benefit greatly from placement in a facility. She will work with case management and social media sr strategy manager to determine optimal placement and insurance issues. I will monitor her progress as an inpatient. Once she is discharged, she can follow up in my office at [facility] and arrangements will be made to ensure her followup. Tyrone Guerin MD
== END 2017-11-05 15:33 | DRG 563 ==
LOC: C.ER 10:05 → C.9E 13:55 → C.6T 15:43 → OBSVTOIN 11-02 13:27
PROVIDERS: ADMIT Internal Medicine; ATTEND Internal Medicine
PROC: 0PSNXZZ Reposition Left Carpal, External Approach (ICD-10-PCS; 2017-11-01)
PROC: 0PSJXZZ Reposition Left Radius, External Approach (ICD-10-PCS; principal; 2017-11-01 07:15)
DX: S52.532A Colles' fracture of left radius, initial encounter for closed fracture (principal); S62.102A Fracture of unspecified carpal bone, left wrist, initial encounter for closed fracture; E03.9 Hypothyroidism, unspecified; E78.00 Pure hypercholesterolemia, unspecified; F03.90 Unspecified dementia, unspecified severity, without behavioral disturbance, psychotic disturbance, mood disturbance, and anxiety; F20.9 Schizophrenia, unspecified; F31.9 Bipolar disorder, unspecified; W18.39XA Other fall on same level, initial encounter; F41.9 Anxiety disorder, unspecified; R26.81 Unsteadiness on feet

== ENCOUNTER 2017-11-15 14:34 | Inpatient (IN) | payer MEDICARE, BC ==
[2017-11-15 14:46] VITALS: BMI 21.2
--- NOTE | 2017-11-15 15:33 | C.PDOC ---
Time Seen by Provider: 11/15/17 14:59 Chief Complaint (Nursing): Syncope Past Medical History Vital Signs: Last Vital Signs Temp Pulse 98 H 11/15/17 14:44 Resp 21 11/15/17 14:44 BP 105/52 L 11/15/17 14:44 Pulse Ox 98 11/15/17 14:44 - Medical History PMH: Anxiety, Bipolar Disorder, Depression, HTN, Hypercholesterolemia, Hyperlipidemia, Hypothyroidism Denies: Chronic Kidney Disease - [employer] Procedures REPOSITION LEFT CARPAL, EXTERNAL APPROACH (11/02/17) REPOSITION LEFT RADIUS, EXTERNAL APPROACH (11/02/17) Family History: States: Unknown Family Hx - Social History Hx Alcohol Use: No Hx Substance Use: No - Immunization History Hx Tetanus Toxoid Vaccination: No Hx Influenza Vaccination: No Hx Pneumococcal Vaccination: No ED Course And Treatment O2 Sat by Pulse Oximetry: 98 Progress - Data Reviewed Data Reviewed: Lab, Diagnostic imaging, EKG, Old records Disposition - Disposition Forms: [employer] (Lithuanian)
--- NOTE | 2017-11-15 15:35 | C.PDOC ---
History Of Present Illness POOR HX 87-YEAR-OLD FEMALE, IS RFFERRED TO THE EMERGENCY DEPARTMENT FROM [facility] S/ P SYNCOPAL EPISODE AT UNKNOWN TIME AND FOR UNKNOWN DURATION. UNKOWN INJURY AND MECHANIS SHE WAS RECENTLY DISCHARGED FROM HOSPITAL S/P COLLES FRACTURE; PATIENT DENIES PAIN. EXAM CAST LEFT ARM AOX1 NO FOCAL DEF Time Seen by Provider: 11/15/17 14:59 Chief Complaint (Nursing): Syncope History Per: EMS ([facility] DOCUMENTS) Past Medical History Reviewed: Historical Data, Nursing Documentation, Vital Signs Vital Signs: Last Vital Signs Temp Pulse 87 11/15/17 16:35 Resp 16 11/15/17 16:35 BP 101/51 L 11/15/17 16:35 Pulse Ox 100 11/15/17 16:35 - Medical History PMH: Anxiety, Bipolar Disorder, Depression, HTN, Hypercholesterolemia, Hyperlipidemia, Hypothyroidism Denies: Chronic Kidney Disease - [facility] Procedures REPOSITION LEFT CARPAL, EXTERNAL APPROACH (11/02/17) REPOSITION LEFT RADIUS, EXTERNAL APPROACH (11/02/17) Family History: States: No Known Family Hx - Social History Hx Alcohol Use: No Hx Substance Use: No - Immunization History Hx Tetanus Toxoid Vaccination: No Hx Influenza Vaccination: No Hx Pneumococcal Vaccination: No Review Of Systems Review Of Systems: ROS cannot be obtained secondary to pt's inabilty to answer questions. Physical Exam - Physical Exam Appears: Non-toxic, No Acute Distress Skin: Normal Color, Warm, Dry, No Rash Head: Normacephalic Eye(s): bilateral: PERRL Nose: Normal Oral Mucosa: Moist Lips: Normal Appearing Neck: Normal ROM Cardiovascular: Rhythm Regular, No Murmur Respiratory: Normal Breath Sounds, No Accessory Muscle Use Extremity: No Deformity, No Swelling, Other (+CAST LEFT ARM) Neurological/Psych: Other (A&OX1) ED Course And Treatment - Laboratory Results Result Diagrams: 11/15/17 16:01 11/15/17 16:01 Progress - Re-Evaluation Re-evaluation Note: 11/15/17 16:53 EXAM UNCH INITIAL. VSS D/W DR RENDON C/F PMD: STATES PT W DEC APPETITE AND PO INTAKE. - Data Reviewed Data Reviewed: Lab, Diagnostic imaging, Old records Disposition Counseled Patient/Family Regarding: Studies Performed, Diagnosis, Need For Followup - Disposition Disposition: HOSPITALIZED Disposition Time: 16:53 Condition: SERIOUS Forms: [facility] (Azeri) - POA Present On Arrival: None - Clinical Impression Clinical Impression: Syncope, Acute renal insufficiency - Scribe Statement The provider has reviewed the documentation as recorded by the Scribe (Kim King) All medical record entries made by the Scribe were at my direction and personally dictated by me. I have reviewed the chart and agree that the record accurately reflects my personal performance of the history, physical exam, medical decision making, and the department course for this patient. I have also personally directed, reviewed, and agree with the discharge instructions and disposition. Decision To Admit - Pt Status Changed To: Hospital Disposition Of: Inpatient - Admit Certification Admit to Inpatient:: After my assessment, the patient will require hospitalization for at least two midnights. This is because of the severity of symptoms shown, intensity of services needed, and/or the medical risk in this patient being treated as an outpatient. - InPatient: Physician Admission Certification: I certify that this patient requires 2 or more midnights of care for the following reason:: SEE NOTE - . Bed Request Type: Telemetry Admitting Physician: Noe Rosales Patient Diagnosis: Syncope, Acute renal insufficiency
[2017-11-15 16:08] LABS: BASO % 0.2 % (0.0-2.0); EOS # 0.1 K/uL (0.0-0.7); EOS % 1.2 % (0.0-4.0); HEMOGLOBIN 14.1 g/dL (11.0-16.0); LYMPH # 0.9 K/uL (1.0-4.3); LYMPH % 8.2 % (20.0-40.0); MEAN CELL VOLUME 90.6 fL (81.0-99.0); MEAN CORPUSCULAR HEMOGLOBIN 29.5 pg (27.0-31.0); MEAN CORPUSCULAR HGB CONC 32.6 g/dL (33.0-37.0); MEAN PLATELET VOLUME 9.5 fL (7.2-11.7); MONO # 0.5 K/uL (0.0-0.8); MONO % 4.5 % (0.0-10.0); NEUT # 9.8 K/uL (1.8-7.0); NEUT % 85.9 % (50.0-75.0); PLATELET COUNT 279 K/uL (130-400); RED CELL DISTRIBUTION WIDTH 14.3 % (11.5-14.5); WHITE BLOOD COUNT 11.4 K/uL (4.8-10.8)
[2017-11-15 16:14] LABS: URINE BILIRUBIN NEGATIVE (NEGATIVE); URINE BLOOD NEGATIVE (NEGATIVE); URINE CLARITY Clear (Clear); URINE COLOR Yellow (YELLOW); URINE GLUCOSE (UA) NORMAL (Normal); URINE LEUKOCYTE ESTERASE NEG Leu/uL (Negative); URINE PROTEIN NEGATIVE (NEGATIVE); URINE UROBILINOGEN NORMAL mg/dL (0.2-1.0)
[2017-11-15 16:31] LABS: ALB/GLOB RATIO 1.3 (1.0-2.1); ALBUMIN 4.2 g/dL (3.5-5.0); CALCIUM 9.8 mg/dl (8.6-10.4)
[2017-11-15 16:33] LABS: TROPONIN I 0.015 ng/mL (0.00-0.120)
--- NOTE | 2017-11-15 16:48 | CT ---
PROCEDURE: CT HEAD WITHOUT CONTRAST. HISTORY: Syncope COMPARISON: 04/07/2012. TECHNIQUE: Axial computed tomography images were obtained through the head/brain without intravenous contrast. Radiation dose: Total exam DLP = 1056.39 mGy-cm. This CT exam was performed using one or more of the following dose reduction techniques: Automated exposure control, adjustment of the mA and/or kV according to patient size, and/or use of iterative reconstruction technique. FINDINGS: HEMORRHAGE: No intracranial hemorrhage. BRAIN: There are mild chronic microangiopathic changes. There is no mass, mass effect or abnormal extra-axial fluid collection. VENTRICLES: There is mild age-related global parenchymal volume loss and proportionate enlargement of the ventricles and cortical sulci. CALVARIUM: The skull base and calvarium are normal. PARANASAL SINUSES: Predominantly clear. MASTOID AIR CELLS: Predominantly clear. OTHER FINDINGS: Incompletely imaged is an osteolytic lesion in the C2 vertebral body on the left IMPRESSION: No acute intracranial abnormality. Mild chronic microangiopathic changes and mild age-related global parenchymal volume loss. 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 A dedicated CT scan of the cervical spine is recommended for further evaluation.
[2017-11-15] MEDS ORDERED: Sodium Chloride 0.9% 500 ML IV ONE ×2 (16:51→17:03)
[2017-11-15] MEDS ORDERED: Sodium Chloride 0.9% 250 ML IV ONE ×2 (16:52→17:32)
--- NOTE | 2017-11-15 17:28 | RAD ---
PROCEDURE: CHEST RADIOGRAPH, 1 VIEW HISTORY: SYNCOPE COMPARISON: Chest radiograph dated 10/31/2017. FINDINGS: LUNGS: Clear. PLEURA: No pneumothorax or pleural fluid seen. CARDIOVASCULAR: Atherosclerotic aortic calcifications. Cardiomediastinal silhouette within normal limits. OSSEOUS STRUCTURES: Unchanged. VISUALIZED UPPER ABDOMEN: Normal. OTHER FINDINGS: None. IMPRESSION: No active disease.
[2017-11-15 18:20] LABS: LYMPHOCYTE 12 % (20-40); MONOCYTE 6 % (0-10); NEUTROPHIL 82 % (50-75); PLATELET ESTIMATE NORMAL (NORMAL); TOTAL CELLS COUNTED 100
[2017-11-15] MEDS ORDERED: Sodium Chloride 0.9% 1,000 ML IV SCH (20:00)
[2017-11-15] MEDS ORDERED: Sodium Chloride 0.45% 1,000 ML IV SCH (20:30)
[2017-11-15 20:40] LABS: BASO % 0.3 % (0.0-2.0); EOS # 0.2 K/uL (0.0-0.7); EOS % 1.6 % (0.0-4.0); LYMPH # 1.2 K/uL (1.0-4.3); LYMPH % 10.2 % (20.0-40.0); MEAN CELL VOLUME 90.2 fL (81.0-99.0); MEAN CORPUSCULAR HEMOGLOBIN 29.9 pg (27.0-31.0); MEAN CORPUSCULAR HGB CONC 33.2 g/dL (33.0-37.0); MEAN PLATELET VOLUME 8.4 fL (7.2-11.7); MONO # 0.6 K/uL (0.0-0.8); MONO % 5.7 % (0.0-10.0); NEUT # 9.4 K/uL (1.8-7.0); NEUT % 82.2 % (50.0-75.0); RBC 4.35 Mil/uL (3.80-5.20); RED CELL DISTRIBUTION WIDTH 14.2 % (11.5-14.5); WHITE BLOOD COUNT 11.5 K/uL (4.8-10.8)
--- NOTE | 2017-11-15 20:44 | CP.PCM.HP ---
History of Present Illness - History of Present Illness History of Present Illness: Chief complaint: Syncope happened in the [facility]. History present illness: Ms. Brantley is a 87 year old female with PMHx of HTN, Hypothyroidism, and Dementia, Bipolar disease on chronic lithium treatment. Recently hospitalized with a left arm fracture, and the following that the patient was transferred to rehabilitation. While in the rehabilitation patient was not eating well, not drinking enough, and she was not participating much activities. During the day today patient was not feeling well, the pressure was noted to be on the low side, and she fell on the floor, and immediately ambulance was called,Patient was transferred to emergency room. In the emergency room patient was evaluated, noted to have dehydration, kidney failure, and elevated lithium level noted, with high sodium level. Patient was having increasing tremor, and week, and somewhat lethargic, but arousable and responding. Patient was given 2 liters of fluid, and admitted to the hospital. There was no head injury noted, there was no loss of consciousness noted, except a brief syncopal attack in the [facility] PMHx: HTN, Hypothyroidism, Dementia, Bipolar, chronic lithium treatment PSHx: Denied Meds: As per OCT, reviewed and confirmed All: NKDA SHx: Denied any tobacco, ETOH, or illicit drug use FHx: Unremarkable POA: Kei Winchester - sister - [phone] Review of systems: Patient is somewhat sleepy, arousable, moving all 4 extremities. She does not have any symptoms of pain, but the tremor and weakness noted. On examination: HEENT PERRLA, neck supple No thyromegaly was noted and no cervical adenopathy noted Chest bilateral good air entry, no wheezing or rales noted CVS regular heart sound, no murmur Abdomen soft and no organomegaly Generalized tremor, mildly noted Patient is somewhat lethargic but Arousable and awake Labs noted. EKG mild elevation of the QT prolongation noted. Serum lithium level 2.1 Sodium 149 Creatinine is 3.1, baseline 1.3 Assessment and recommendation: 87-year-old female with history of hypertension, hypothyroidism, dementia,, bipolar disease on chronic lithium treatment Recently had left radial fracture, closed reduction, cast. Multiple falls. Admitted now with the acute syncope, likely dehydration, underlying diabetes insipidus cannot be ruled out. [place] toxicity. Hyponatremia. Will closely monitor the patient in the intensive care unit, lithium level monitoring, sodium level ,, Nephrology evaluation. IV hydrati. The DVT. GI prophylaxis will follow the patient Present on Admission - Present on Admission Any Indicators Present on Admission: No History of DVT/PE: No History of Uncontrolled Diabetes: No Urinary Catheter: No Decubitus Ulcer Present: No Past Patient History - Past Medical History & Family History Past Medical History?: Yes - Past Social History Smoking Status: Never Smoked - CARDIAC Hx Cardiac Disorders: Yes Hx Hypercholesterolemia: Yes Hx Hypertension: Yes - PULMONARY Hx Respiratory Disorders: No - NEUROLOGICAL Hx Neurological Disorder: No - HEENT Hx HEENT Problems: No - RENAL Hx Chronic Kidney Disease: No - ENDOCRINE/METABOLIC Hx Endocrine Disorders: Yes Hx Hypothyroidism: Yes - HEMATOLOGICAL/ONCOLOGICAL Hx Blood Disorders: No - INTEGUMENTARY Hx Dermatological Problems: No - MUSCULOSKELETAL/RHEUMATOLOGICAL Hx Musculoskeletal Disorders: Yes Hx Falls: Yes - GASTROINTESTINAL Hx Gastrointestinal Disorders: No - GENITOURINARY/GYNECOLOGICAL Hx Genitourinary Disorders: No - PSYCHIATRIC Hx Psychophysiologic Disorder: Yes Hx Anxiety: Yes Hx Bipolar Disorder: Yes Hx Depression: Yes Hx Substance Use: No - SURGICAL HISTORY Hx Surgeries: No Other/Comment: left distal radius closed reduction (11/04/17) - ANESTHESIA Hx Anesthesia: Yes Hx Anesthesia Reactions: No Hx Malignant Hyperthermia: No Has any member of the family had a problem w/ anesthesia?: No Meds Allergies/Adverse Reactions: Allergies Allergy/AdvReac Type Severity Reaction Status Date / Time No Known Allergies Allergy Verified 11/15/17 14:37 Results - Vital Signs Recent Vital Signs: Last Vital Signs Temp 97.4 F L 11/15/17 18:45 Pulse 86 11/15/17 19:00 Resp 18 11/15/17 18:45 BP 107/74 11/15/17 18:45 Pulse Ox 100 11/15/17 18:45 - Labs Result Diagrams: 11/16/17 06:07 11/16/17 06:07 Labs: Laboratory Results - last 24 hr 11/15/17 11/15/17 11/15/17 14:42 16:01 16:01 WBC 11.4 H RBC 4.80 Hgb 14.1 D Hct 43.4 MCV 90.6 MCH 29.5 MCHC 32.6 L RDW 14.3 Plt Count 279 D MPV 9.5 Neut % (Auto) 85.9 H Lymph % (Auto) 8.2 L [place] % (Auto) 4.5 Eos % (Auto) 1.2 Baso % (Auto) 0.2 Neut # (Auto) 9.8 H Lymph # (Auto) 0.9 L [place] # (Auto) 0.5 Eos # (Auto) 0.1 Baso # (Auto) 0.0 Neutrophils % (Manual) 82 H Lymphocytes % (Manual) 12 L Monocytes % (Manual) 6 Platelet Estimate Normal Sodium 149 H Potassium 4.4 Chloride 112 H Carbon Dioxide 19 L Anion Gap 22 H BUN 97 H Creatinine 3.7 H Est GFR ( Amer) 14 Est GFR (Non-Af Amer) 12 POC Glucose (mg/dL) 180 H Random Glucose 135 H Calcium 9.8 Total Bilirubin 0.9 AST 35 ALT 9 Alkaline Phosphatase 117 Troponin I 0.0150 Total Protein 7.4 Albumin 4.2 Globulin 3.2 Albumin/Globulin Ratio 1.3 Urine Color Urine Clarity Urine pH Ur Specific [place] Urine Protein Urine Glucose (UA) Urine Ketones Urine Blood Urine Nitrate Urine Bilirubin Urine Urobilinogen Ur Leukocyte Esterase Urine WBC (Auto) [place] 11/15/17 11/15/17 16:01 17:02 WBC RBC Hgb Hct MCV MCH MCHC RDW Plt Count MPV Neut % (Auto) Lymph % (Auto) [place] % (Auto) Eos % (Auto) Baso % (Auto) Neut # (Auto) Lymph # (Auto) [place] # (Auto) Eos # (Auto) Baso # (Auto) Neutrophils % (Manual) Lymphocytes % (Manual) Monocytes % (Manual) Platelet Estimate Sodium Potassium Chloride Carbon Dioxide Anion Gap BUN Creatinine Est GFR ( Amer) Est GFR (Non-Af Amer) POC Glucose (mg/dL) Random Glucose Calcium Total Bilirubin AST ALT Alkaline Phosphatase Troponin I Total Protein Albumin Globulin Albumin/Globulin Ratio Urine Color Yellow Urine Clarity Clear Urine pH 5.0 Ur Specific [place] 1.014 Urine Protein Negative Urine Glucose (UA) Normal Urine Ketones Negative Urine Blood Negative Urine Nitrate Negative Urine Bilirubin Negative Urine Urobilinogen Normal Ur Leukocyte Esterase Neg Urine WBC (Auto) < 1 [place] 2.1 H*
[2017-11-15 21:24] LABS: ALB/GLOB RATIO 1.3 (1.0-2.1); ALBUMIN 3.8 g/dL (3.5-5.0); CALCIUM 9.2 mg/dl (8.6-10.4)
--- NOTE | 2017-11-15 22:12 | CP.CCUPN ---
CCU Subjective - Physician Review Events Since Last Encounter (Free Text): 11/15/17 22:07 87yo F. PMHx HTN, Hypothyroidism, Dementia, Bipolar disorder on chronic lithium , recent left arm fracture in rehab. Patient p/w altered mental status with elevated lithium level, in acute renal failure. CCU Objective - Vital Signs / Intake & Output Vital Signs (Last 4 hours): Vital Signs Temp Pulse Resp BP Pulse Ox 11/15/17 21:30 91 H 16 98 11/15/17 21:20 105 H 23 100 11/15/17 21:12 107/52 L 11/15/17 21:10 98.4 F 84 14 100 11/15/17 19:00 86 11/15/17 18:45 97.4 F L 85 18 107/74 100 Intake and Output (Last 8hrs): Intake & Output 11/15/17 11/15/17 11/15/17 06:59 14:59 22:59 Weight 120 lb - Physical Exam Physical Exam Limitations: Positive for: Altered Mental Status Head: Positive for: Atraumatic, Normocephalic Pupils: Positive for: PERRL Extroacular Muscles: Positive for: EOMI Conjunctiva: Positive for: Normal Mouth: Positive for: Moist Mucous Membranes Neck: Positive for: Normal Range of Motion Respiratory/Chest: Positive for: Clear to Auscultation, Good Air Exchange Cardiovascular: Positive for: Tachycardic Abdomen: Positive for: Normal Bowel Sounds. Negative for: Tenderness, Distention Neurological: Positive for: CN II-XII Intact Psychiatric: Positive for: Alert. Negative for: Oriented x 3 - Medications Active Medications: Active Medications Generic Name Dose Route Start Last Admin Trade Name Freq PRN Reason Stop Dose Admin Heparin Sodium (Porcine) 5,000 units 11/15/17 22:00 Heparin SC Q12H FLORY Sodium Chloride 1,000 mls @ 150 mls/hr 11/15/17 20:30 11/15/17 20:38 Sodium Chloride 0.45% IV 150 mls/hr .[id number] FLORY Administration Levothyroxine Sodium 50 mcg 11/16/17 06:30 Synthroid PO DAILY@0630 [facility] Pneumococcal Polyvalent Vaccine 0.5 ml 11/17/17 10:00 Pneumovax 23 Vaccine IM 11/17/17 10:01 .ONCE ONE - Patient Studies Lab Studies: Lab Studies 11/15/17 11/15/17 11/15/17 Range/Units 21:54 20:35 20:35 WBC (4.8-10.8) K/uL RBC (3.80-5.20) Mil/uL Hgb (11.0-16.0) g/dL Hct (34.0-47.0) % MCV (81.0-99.0) fL MCH (27.0-31.0) pg MCHC (33.0-37.0) g/dL RDW (11.5-14.5) % Plt Count (130-400) K/uL MPV (7.2-11.7) fL Neut % (Auto) (50.0-75.0) % Lymph % (Auto) (20.0-40.0) % [place] % (Auto) (0.0-10.0) % Eos % (Auto) (0.0-4.0) % Baso % (Auto) (0.0-2.0) % Neut # (Auto) (1.8-7.0) K/uL Lymph # (Auto) (1.0-4.3) K/uL [place] # (Auto) (0.0-0.8) K/uL Eos # (Auto) (0.0-0.7) K/uL Baso # (Auto) (0.0-0.2) K/uL Neutrophils % (Manual) (50-75) % Lymphocytes % (Manual) (20-40) % Monocytes % (Manual) (0-10) % Platelet Estimate (NORMAL) Sodium 150 H (132-148) mmol/L Potassium 4.3 (3.6-5.2) mmol/L Chloride 114 H (98-107) mmol/L Carbon Dioxide 23 (22-30) mmol/L Anion Gap 18 (10-20) BUN 92 H (7-17) mg/dL Creatinine 3.7 H (0.7-1.2) mg/dL Est GFR ( Amer) 14 Est GFR (Non-Af Amer) 12 POC Glucose (mg/dL) (65-110) mg/dL Random Glucose 100 (65-105) mg/dL Calcium 9.2 (8.6-10.4) mg/dl Phosphorus 4.4 (2.5-4.5) mg/dL Magnesium 3.4 H (1.6-2.3) mg/dL Total Bilirubin 0.5 (0.2-1.3) mg/dL AST 31 (14-36) U/L ALT 7 L D (9-52) U/L Alkaline Phosphatase 111 (38-126) U/L Troponin I (0.00-0.120) ng/mL Total Protein 6.8 (6.3-8.3) g/dL Albumin 3.8 (3.5-5.0) g/dL Globulin 3.0 (2.2-3.9) gm/dL Albumin/Globulin Ratio 1.3 (1.0-2.1) Urine Color (YELLOW) Urine Clarity (Clear) Urine pH (5.0-8.0) Ur Specific [place] (1.003-1.030) Urine Protein (NEGATIVE) mg/dL Urine Glucose (UA) (Normal) mg/dL Urine Ketones (NEGATIVE) mg/dL Urine Blood (NEGATIVE) Urine Nitrate (NEGATIVE) Urine Bilirubin (NEGATIVE) Urine Urobilinogen (0.2-1.0) mg/dL Ur Leukocyte Esterase (Negative) [place]/uL Urine WBC (Auto) (0-5) /hpf [place] 2.1 H* (0.6-1.2) mmol/L 11/15/17 11/15/17 11/15/17 Range/Units 20:35 17:02 16:01 WBC 11.5 H (4.8-10.8) K/uL RBC 4.35 (3.80-5.20) Mil/uL Hgb 13.0 (11.0-16.0) g/dL Hct 39.2 (34.0-47.0) % MCV 90.2 (81.0-99.0) fL MCH 29.9 (27.0-31.0) pg MCHC 33.2 (33.0-37.0) g/dL RDW 14.2 (11.5-14.5) % Plt Count 235 (130-400) K/uL MPV 8.4 (7.2-11.7) fL Neut % (Auto) 82.2 H (50.0-75.0) % Lymph % (Auto) 10.2 L (20.0-40.0) % [place] % (Auto) 5.7 (0.0-10.0) % Eos % (Auto) 1.6 (0.0-4.0) % Baso % (Auto) 0.3 (0.0-2.0) % Neut # (Auto) 9.4 H (1.8-7.0) K/uL Lymph # (Auto) 1.2 (1.0-4.3) K/uL [place] # (Auto) 0.6 (0.0-0.8) K/uL Eos # (Auto) 0.2 (0.0-0.7) K/uL Baso # (Auto) 0.0 (0.0-0.2) K/uL Neutrophils % (Manual) (50-75) % Lymphocytes % (Manual) (20-40) % Monocytes % (Manual) (0-10) % Platelet Estimate (NORMAL) Sodium (132-148) mmol/L Potassium (3.6-5.2) mmol/L Chloride (98-107) mmol/L Carbon Dioxide (22-30) mmol/L Anion Gap (10-20) BUN (7-17) mg/dL Creatinine (0.7-1.2) mg/dL Est GFR ( Amer) Est GFR (Non-Af Amer) POC Glucose (mg/dL) (65-110) mg/dL Random Glucose (65-105) mg/dL Calcium (8.6-10.4) mg/dl Phosphorus (2.5-4.5) mg/dL Magnesium (1.6-2.3) mg/dL Total Bilirubin (0.2-1.3) mg/dL AST (14-36) U/L ALT (9-52) U/L Alkaline Phosphatase (38-126) U/L Troponin I (0.00-0.120) ng/mL Total Protein (6.3-8.3) g/dL Albumin (3.5-5.0) g/dL Globulin (2.2-3.9) gm/dL Albumin/Globulin Ratio (1.0-2.1) Urine Color Yellow (YELLOW) Urine Clarity Clear (Clear) Urine pH 5.0 (5.0-8.0) Ur Specific [place] 1.014 (1.003-1.030) Urine Protein Negative (NEGATIVE) mg/dL Urine Glucose (UA) Normal (Normal) mg/dL Urine Ketones Negative (NEGATIVE) mg/dL Urine Blood Negative (NEGATIVE) Urine Nitrate Negative (NEGATIVE) Urine Bilirubin Negative (NEGATIVE) Urine Urobilinogen Normal (0.2-1.0) mg/dL Ur Leukocyte Esterase Neg (Negative) [place]/uL Urine WBC (Auto) < 1 (0-5) /hpf [place] 2.1 H* (0.6-1.2) mmol/L 11/15/17 11/15/17 11/15/17 Range/Units 16:01 16:01 14:42 WBC 11.4 H (4.8-10.8) K/uL RBC 4.80 (3.80-5.20) Mil/uL Hgb 14.1 D (11.0-16.0) g/dL Hct 43.4 (34.0-47.0) % MCV 90.6 (81.0-99.0) fL MCH 29.5 (27.0-31.0) pg MCHC 32.6 L (33.0-37.0) g/dL RDW 14.3 (11.5-14.5) % Plt Count 279 D (130-400) K/uL MPV 9.5 (7.2-11.7) fL Neut % (Auto) 85.9 H (50.0-75.0) % Lymph % (Auto) 8.2 L (20.0-40.0) % [place] % (Auto) 4.5 (0.0-10.0) % Eos % (Auto) 1.2 (0.0-4.0) % Baso % (Auto) 0.2 (0.0-2.0) % Neut # (Auto) 9.8 H (1.8-7.0) K/uL Lymph # (Auto) 0.9 L (1.0-4.3) K/uL [place] # (Auto) 0.5 (0.0-0.8) K/uL Eos # (Auto) 0.1 (0.0-0.7) K/uL Baso # (Auto) 0.0 (0.0-0.2) K/uL Neutrophils % (Manual) 82 H (50-75) % Lymphocytes % (Manual) 12 L (20-40) % Monocytes % (Manual) 6 (0-10) % Platelet Estimate Normal (NORMAL) Sodium 149 H (132-148) mmol/L Potassium 4.4 (3.6-5.2) mmol/L Chloride 112 H (98-107) mmol/L Carbon Dioxide 19 L (22-30) mmol/L Anion Gap 22 H (10-20) BUN 97 H (7-17) mg/dL Creatinine 3.7 H (0.7-1.2) mg/dL Est GFR ( Amer) 14 Est GFR (Non-Af Amer) 12 POC Glucose (mg/dL) 180 H (65-110) mg/dL Random Glucose 135 H (65-105) mg/dL Calcium 9.8 (8.6-10.4) mg/dl Phosphorus (2.5-4.5) mg/dL Magnesium (1.6-2.3) mg/dL Total Bilirubin 0.9 (0.2-1.3) mg/dL AST 35 (14-36) U/L ALT 9 (9-52) U/L Alkaline Phosphatase 117 (38-126) U/L Troponin I 0.0150 (0.00-0.120) ng/mL Total Protein 7.4 (6.3-8.3) g/dL Albumin 4.2 (3.5-5.0) g/dL Globulin 3.2 (2.2-3.9) gm/dL Albumin/Globulin Ratio 1.3 (1.0-2.1) Urine Color (YELLOW) Urine Clarity (Clear) Urine pH (5.0-8.0) Ur Specific [place] (1.003-1.030) Urine Protein (NEGATIVE) mg/dL Urine Glucose (UA) (Normal) mg/dL Urine Ketones (NEGATIVE) mg/dL Urine Blood (NEGATIVE) Urine Nitrate (NEGATIVE) Urine Bilirubin (NEGATIVE) Urine Urobilinogen (0.2-1.0) mg/dL Ur Leukocyte Esterase (Negative) [place]/uL Urine WBC (Auto) (0-5) /hpf [place] (0.6-1.2) mmol/L Laboratory Results - last 24 hr 11/15/17 11/15/17 11/15/17 14:42 16:01 16:01 WBC 11.4 H RBC 4.80 Hgb 14.1 D Hct 43.4 MCV 90.6 MCH 29.5 MCHC 32.6 L RDW 14.3 Plt Count 279 D MPV 9.5 Neut % (Auto) 85.9 H Lymph % (Auto) 8.2 L [place] % (Auto) 4.5 Eos % (Auto) 1.2 Baso % (Auto) 0.2 Neut # (Auto) 9.8 H Lymph # (Auto) 0.9 L [place] # (Auto) 0.5 Eos # (Auto) 0.1 Baso # (Auto) 0.0 Neutrophils % (Manual) 82 H Lymphocytes % (Manual) 12 L Monocytes % (Manual) 6 Platelet Estimate Normal Sodium 149 H Potassium 4.4 Chloride 112 H Carbon Dioxide 19 L Anion Gap 22 H BUN 97 H Creatinine 3.7 H Est GFR ( Amer) 14 Est GFR (Non-Af Amer) 12 POC Glucose (mg/dL) 180 H Random Glucose 135 H Calcium 9.8 Phosphorus Magnesium Total Bilirubin 0.9 AST 35 ALT 9 Alkaline Phosphatase 117 Troponin I 0.0150 Total Protein 7.4 Albumin 4.2 Globulin 3.2 Albumin/Globulin Ratio 1.3 Urine Color Urine Clarity Urine pH Ur Specific [place] Urine Protein Urine Glucose (UA) Urine Ketones Urine Blood Urine Nitrate Urine Bilirubin Urine Urobilinogen Ur Leukocyte Esterase Urine WBC (Auto) [place] 11/15/17 11/15/17 11/15/17 16:01 17:02 20:35 WBC 11.5 H RBC 4.35 Hgb 13.0 Hct 39.2 MCV 90.2 MCH 29.9 MCHC 33.2 RDW 14.2 Plt Count 235 MPV 8.4 Neut % (Auto) 82.2 H Lymph % (Auto) 10.2 L [place] % (Auto) 5.7 Eos % (Auto) 1.6 Baso % (Auto) 0.3 Neut # (Auto) 9.4 H Lymph # (Auto) 1.2 [place] # (Auto) 0.6 Eos # (Auto) 0.2 Baso # (Auto) 0.0 Neutrophils % (Manual) Lymphocytes % (Manual) Monocytes % (Manual) Platelet Estimate Sodium Potassium Chloride Carbon Dioxide Anion Gap BUN Creatinine Est GFR ( Amer) Est GFR (Non-Af Amer) POC Glucose (mg/dL) Random Glucose Calcium Phosphorus Magnesium Total Bilirubin AST ALT Alkaline Phosphatase Troponin I Total Protein Albumin Globulin Albumin/Globulin Ratio Urine Color Yellow Urine Clarity Clear Urine pH 5.0 Ur Specific [place] 1.014 Urine Protein Negative Urine Glucose (UA) Normal Urine Ketones Negative Urine Blood Negative Urine Nitrate Negative Urine Bilirubin Negative Urine Urobilinogen Normal Ur Leukocyte Esterase Neg Urine WBC (Auto) < 1 [place] 2.1 H* 11/15/17 11/15/17 11/15/17 20:35 20:35 21:54 WBC RBC Hgb Hct MCV MCH MCHC RDW Plt Count MPV Neut % (Auto) Lymph % (Auto) [place] % (Auto) Eos % (Auto) Baso % (Auto) Neut # (Auto) Lymph # (Auto) [place] # (Auto) Eos # (Auto) Baso # (Auto) Neutrophils % (Manual) Lymphocytes % (Manual) Monocytes % (Manual) Platelet Estimate Sodium 150 H Potassium 4.3 Chloride 114 H Carbon Dioxide 23 Anion Gap 18 BUN 92 H Creatinine 3.7 H Est GFR ( Amer) 14 Est GFR (Non-Af Amer) 12 POC Glucose (mg/dL) Random Glucose 100 Calcium 9.2 Phosphorus 4.4 Magnesium 3.4 H Total Bilirubin 0.5 AST 31 ALT 7 L D Alkaline Phosphatase 111 Troponin I Total Protein 6.8 Albumin 3.8 Globulin 3.0 Albumin/Globulin Ratio 1.3 Urine Color Urine Clarity Urine pH Ur Specific [place] Urine Protein Urine Glucose (UA) Urine Ketones Urine Blood Urine Nitrate Urine Bilirubin Urine Urobilinogen Ur Leukocyte Esterase Urine WBC (Auto) [place] 2.1 H* EKG/Cardiology Studies: Cardiology / EKG Studies 11/15/17 14:46 EKG [ELECTROCARDIOGRAM] Stat Comment: Mode Of Transportation: BED Reason For Exam: cp 11/15/17 20:11 EKG [ELECTROCARDIOGRAM] Routine Comment: Mode Of Transportation: Reason For Exam: 22 Fingerstick Blood Sugar Results: 180 Review of Systems - Review of Systems Systems not reviewed;Unavailable: Altered Mental Status Critical Care Progress Note - Nutrition Nutrition: Nutrition Category Date Time Status Renal Diet [DIET] Diets 11/15/17 Dinner Active Assessment/Plan (1) [place] nephropathy Assessment and plan: 87yo F. PMHx HTN, Hypothyroidism, Dementia, Bipolar disorder on chronic lithium , recent left arm fracture in rehab. Patient p/w altered mental status with elevated lithium level, in acute renal failure. Neuro: alert to person only, following commands Pulm: breathing spontaneously on room air CV: hemodynamically stable Hem: no acute issues Renal: acute kidney injury most likely lithium induced. Hypernatremia, uncertain if nephrogenic DI currently. 1/2NS@150, q4h bmp and lithium level checks. Endo: hypothyroidism continue levothyroxine GI: low sodium diet ID: no acute issues DVT proph - heparin sq GI proph - not currently indicated isbell for strict I/O's during acute illness Code status - full code Critical Care Time spent 35 minutes The documented time is cumulative and includes review of patient data/exams/labs /chart review and examination of the patient on rounds and throughout the day; time is exclusive of any procedures or teaching time. Current Visit: Yes Status: Acute
[2017-11-15] MEDS ORDERED: Dextrose 5%/0.45% NS 1,000 ML IV SCH ×2 (23:30→23:37)
[2017-11-15] MEDS: Sodium Chloride 0.45% 1,000 ML IV SCH (23:45)
[2017-11-16 01:25] LABS: CALCIUM 9.1 mg/dl (8.6-10.4)
[2017-11-16] MEDS: Sodium Chloride 0.45% 1,000 ML IV SCH ×4 (05:30→20:00)
[2017-11-16 06:17] LABS: BASO % 0.2 % (0.0-2.0); EOS # 0.3 K/uL (0.0-0.7); EOS % 3.2 % (0.0-4.0); HEMOGLOBIN 12.7 g/dL (11.0-16.0); LYMPH # 1.3 K/uL (1.0-4.3); LYMPH % 11.7 % (20.0-40.0); MEAN CELL VOLUME 91.2 fL (81.0-99.0); MEAN CORPUSCULAR HGB CONC 32.9 g/dL (33.0-37.0); MEAN PLATELET VOLUME 9.1 fL (7.2-11.7); MONO # 0.6 K/uL (0.0-0.8); MONO % 5.3 % (0.0-10.0); NEUT # 8.7 K/uL (1.8-7.0); NEUT % 79.6 % (50.0-75.0); RBC 4.24 Mil/uL (3.80-5.20); RED CELL DISTRIBUTION WIDTH 14.4 % (11.5-14.5); WHITE BLOOD COUNT 10.9 K/uL (4.8-10.8)
[2017-11-16] MEDS: Levothyroxine 50 MCG TAB PO SCH (06:27)
[2017-11-16 06:36] LABS: ALB/GLOB RATIO 1.2 (1.0-2.1); ALBUMIN 3.5 g/dL (3.5-5.0); CALCIUM 8.7 mg/dl (8.6-10.4)
--- NOTE | 2017-11-16 09:01 | CP.CCUPN ---
CCU Subjective - Physician Review Events Since Last Encounter (Free Text): 11/16/17 08:58 Patient is now awake. Still dehydrated. Dry mucosa noted Slow to respond, but appropriate Moving all 4 extremities No chest pain. Poor intake Having some difficulty in swallowing, associated with a cough On examination: Vital signs stable. Chest good air entry bilaterally irregular heart so nontender abdomen no pedal edema Labs reviewed in Nonspecific. Improving lithium level, also improving sodium level Assessment and recommendation: 87-year-old female with a history of bipolar disease, hypertension, anxiety. Recent the left arm radial fracture. Admitted with lithium toxicity severe dehydration. Continue the IV hydration. Out of bed to chair. IV fluid, intake and output monitoring and will follow-up the patient CCU Objective - Vital Signs / Intake & Output Vital Signs (Last 4 hours): Vital Signs Pulse Resp BP Pulse Ox 11/16/17 07:12 115/60 11/16/17 07:00 68 17 100 11/16/17 06:12 126/61 11/16/17 06:00 87 19 100 11/16/17 05:12 106/53 L 11/16/17 05:00 73 14 100 Intake and Output (Last 8hrs): Intake & Output 11/15/17 11/16/17 11/16/17 22:59 06:59 14:59 Intake Total 300 1200 150 Output Total 860 40 Balance 300 340 110 Weight 98 lb 1.691 oz Intake: Intake, IV Amount 300 1200 150 right wrist 300 1200 150 Oral 0 0 0 Output: Urine 860 40 Urethral (Yanez) 860 40 Other: # Voids Urine, Voided 0 # Bowel Movements 0 0 0 - Physical Exam Head: Positive for: Atraumatic, Normocephalic Pupils: Positive for: PERRL Extroacular Muscles: Positive for: EOMI Conjunctiva: Positive for: Normal Mouth: Positive for: Moist Mucous Membranes Neck: Positive for: Normal Range of Motion Respiratory/Chest: Positive for: Clear to Auscultation, Good Air Exchange Cardiovascular: Positive for: Tachycardic Abdomen: Positive for: Normal Bowel Sounds. Negative for: Tenderness, Distention Neurological: Positive for: CN II-XII Intact Psychiatric: Positive for: Alert. Negative for: Oriented x 3 - Medications Active Medications: Active Medications Generic Name Dose Route Start Last Admin Trade Name Freq PRN Reason Stop Dose Admin Heparin Sodium (Porcine) 5,000 units 11/15/17 22:00 11/15/17 22:20 Heparin SC 5,000 units Q12H FLORY Administration Sodium Chloride 1,000 mls @ 150 mls/hr 11/15/17 23:45 11/16/17 05:30 Sodium Chloride 0.45% IV 150 mls/hr .[id number] FLORY Administration Levothyroxine Sodium 50 mcg 11/16/17 06:30 11/16/17 06:27 Synthroid PO Not Given DAILY@0630 [facility] Pneumococcal Polyvalent Vaccine 0.5 ml 11/17/17 10:00 Pneumovax 23 Vaccine IM 11/17/17 10:01 .ONCE ONE - Patient Studies Lab Studies: Lab Studies 11/16/17 11/16/17 11/16/17 Range/Units 06:07 06:07 06:07 WBC 10.9 H (4.8-10.8) K/uL RBC 4.24 (3.80-5.20) Mil/uL Hgb 12.7 (11.0-16.0) g/dL Hct 38.7 (34.0-47.0) % MCV 91.2 (81.0-99.0) fL MCH 30.0 (27.0-31.0) pg MCHC 32.9 L (33.0-37.0) g/dL RDW 14.4 (11.5-14.5) % Plt Count 212 (130-400) K/uL MPV 9.1 (7.2-11.7) fL Neut % (Auto) 79.6 H (50.0-75.0) % Lymph % (Auto) 11.7 L (20.0-40.0) % [place] % (Auto) 5.3 (0.0-10.0) % Eos % (Auto) 3.2 (0.0-4.0) % Baso % (Auto) 0.2 (0.0-2.0) % Neut # (Auto) 8.7 H (1.8-7.0) K/uL Lymph # (Auto) 1.3 (1.0-4.3) K/uL [place] # (Auto) 0.6 (0.0-0.8) K/uL Eos # (Auto) 0.3 (0.0-0.7) K/uL Baso # (Auto) 0.0 (0.0-0.2) K/uL Neutrophils % (Manual) (50-75) % Lymphocytes % (Manual) (20-40) % Monocytes % (Manual) (0-10) % Platelet Estimate (NORMAL) Sodium 147 (132-148) mmol/L Potassium 4.1 (3.6-5.2) mmol/L Chloride 114 H (98-107) mmol/L Carbon Dioxide 22 (22-30) mmol/L Anion Gap 15 (10-20) BUN 88 H (7-17) mg/dL Creatinine 3.1 H (0.7-1.2) mg/dL Est GFR ( Amer) 17 Est GFR (Non-Af Amer) 14 POC Glucose (mg/dL) (65-110) mg/dL Random Glucose 101 (65-105) mg/dL Calcium 8.7 (8.6-10.4) mg/dl Phosphorus 4.1 (2.5-4.5) mg/dL Magnesium 3.2 H (1.6-2.3) mg/dL Total Bilirubin 0.8 (0.2-1.3) mg/dL AST 27 (14-36) U/L ALT 16 (9-52) U/L Alkaline Phosphatase 110 (38-126) U/L Troponin I (0.00-0.120) ng/mL Total Protein 6.2 L (6.3-8.3) g/dL Albumin 3.5 (3.5-5.0) g/dL Globulin 2.8 (2.2-3.9) gm/dL Albumin/Globulin Ratio 1.2 (1.0-2.1) Urine Color (YELLOW) Urine Clarity (Clear) Urine pH (5.0-8.0) Ur Specific [place] (1.003-1.030) Urine Protein (NEGATIVE) mg/dL Urine Glucose (UA) (Normal) mg/dL Urine Ketones (NEGATIVE) mg/dL Urine Blood (NEGATIVE) Urine Nitrate (NEGATIVE) Urine Bilirubin (NEGATIVE) Urine Urobilinogen (0.2-1.0) mg/dL Ur Leukocyte Esterase (Negative) Grace/uL Urine WBC (Auto) (0-5) /hpf [place] 1.9 H (0.6-1.2) mmol/L 04/14/18 04/14/18 04/13/18 Range/Units 01:10 01:10 21:54 WBC (4.8-10.8) K/uL RBC (3.80-5.20) Mil/uL Hgb (11.0-16.0) g/dL Hct (34.0-47.0) % MCV (81.0-99.0) fL MCH (27.0-31.0) pg MCHC (33.0-37.0) g/dL RDW (11.5-14.5) % Plt Count (130-400) K/uL MPV (7.2-11.7) fL Neut % (Auto) (50.0-75.0) % Lymph % (Auto) (20.0-40.0) % [place] % (Auto) (0.0-10.0) % Eos % (Auto) (0.0-4.0) % Baso % (Auto) (0.0-2.0) % Neut # (Auto) (1.8-7.0) K/uL Lymph # (Auto) (1.0-4.3) K/uL [place] # (Auto) (0.0-0.8) K/uL Eos # (Auto) (0.0-0.7) K/uL Baso # (Auto) (0.0-0.2) K/uL Neutrophils % (Manual) (50-75) % Lymphocytes % (Manual) (20-40) % Monocytes % (Manual) (0-10) % Platelet Estimate (NORMAL) Sodium 148 (132-148) mmol/L Potassium 4.0 (3.6-5.2) mmol/L Chloride 114 H (98-107) mmol/L Carbon Dioxide 22 (22-30) mmol/L Anion Gap 16 (10-20) BUN 91 H (7-17) mg/dL Creatinine 3.4 H (0.7-1.2) mg/dL Est GFR ( Amer) 15 Est GFR (Non-Af Amer) 13 POC Glucose (mg/dL) (65-110) mg/dL Random Glucose 104 (65-105) mg/dL Calcium 9.1 (8.6-10.4) mg/dl Phosphorus 4.4 (2.5-4.5) mg/dL Magnesium (1.6-2.3) mg/dL Total Bilirubin (0.2-1.3) mg/dL AST (14-36) U/L ALT (9-52) U/L Alkaline Phosphatase (38-126) U/L Troponin I (0.00-0.120) ng/mL Total Protein (6.3-8.3) g/dL Albumin (3.5-5.0) g/dL Globulin (2.2-3.9) gm/dL Albumin/Globulin Ratio (1.0-2.1) Urine Color (YELLOW) Urine Clarity (Clear) Urine pH (5.0-8.0) Ur Specific [place] (1.003-1.030) Urine Protein (NEGATIVE) mg/dL Urine Glucose (UA) (Normal) mg/dL Urine Ketones (NEGATIVE) mg/dL Urine Blood (NEGATIVE) Urine Nitrate (NEGATIVE) Urine Bilirubin (NEGATIVE) Urine Urobilinogen (0.2-1.0) mg/dL Ur Leukocyte Esterase (Negative) Grace/uL Urine WBC (Auto) (0-5) /hpf [place] 2.1 H* (0.6-1.2) mmol/L 11/15/17 11/15/17 11/15/17 Range/Units 20:35 20:35 20:35 WBC 11.5 H (4.8-10.8) K/uL RBC 4.35 (3.80-5.20) Mil/uL Hgb 13.0 (11.0-16.0) g/dL Hct 39.2 (34.0-47.0) % MCV 90.2 (81.0-99.0) fL MCH 29.9 (27.0-31.0) pg MCHC 33.2 (33.0-37.0) g/dL RDW 14.2 (11.5-14.5) % Plt Count 235 (130-400) K/uL MPV 8.4 (7.2-11.7) fL Neut % (Auto) 82.2 H (50.0-75.0) % Lymph % (Auto) 10.2 L (20.0-40.0) % [place] % (Auto) 5.7 (0.0-10.0) % Eos % (Auto) 1.6 (0.0-4.0) % Baso % (Auto) 0.3 (0.0-2.0) % Neut # (Auto) 9.4 H (1.8-7.0) K/uL Lymph # (Auto) 1.2 (1.0-4.3) K/uL [place] # (Auto) 0.6 (0.0-0.8) K/uL Eos # (Auto) 0.2 (0.0-0.7) K/uL Baso # (Auto) 0.0 (0.0-0.2) K/uL Neutrophils % (Manual) (50-75) % Lymphocytes % (Manual) (20-40) % Monocytes % (Manual) (0-10) % Platelet Estimate (NORMAL) Sodium 150 H (132-148) mmol/L Potassium 4.3 (3.6-5.2) mmol/L Chloride 114 H (98-107) mmol/L Carbon Dioxide 23 (22-30) mmol/L Anion Gap 18 (10-20) BUN 92 H (7-17) mg/dL Creatinine 3.7 H (0.7-1.2) mg/dL Est GFR ( Amer) 14 Est GFR (Non-Af Amer) 12 POC Glucose (mg/dL) (65-110) mg/dL Random Glucose 100 (65-105) mg/dL Calcium 9.2 (8.6-10.4) mg/dl Phosphorus (2.5-4.5) mg/dL Magnesium 3.4 H (1.6-2.3) mg/dL Total Bilirubin 0.5 (0.2-1.3) mg/dL AST 31 (14-36) U/L ALT 7 L D (9-52) U/L Alkaline Phosphatase 111 (38-126) U/L Troponin I (0.00-0.120) ng/mL Total Protein 6.8 (6.3-8.3) g/dL Albumin 3.8 (3.5-5.0) g/dL Globulin 3.0 (2.2-3.9) gm/dL Albumin/Globulin Ratio 1.3 (1.0-2.1) Urine Color (YELLOW) Urine Clarity (Clear) Urine pH (5.0-8.0) Ur Specific [place] (1.003-1.030) Urine Protein (NEGATIVE) mg/dL Urine Glucose (UA) (Normal) mg/dL Urine Ketones (NEGATIVE) mg/dL Urine Blood (NEGATIVE) Urine Nitrate (NEGATIVE) Urine Bilirubin (NEGATIVE) Urine Urobilinogen (0.2-1.0) mg/dL Ur Leukocyte Esterase (Negative) Grace/uL Urine WBC (Auto) (0-5) /hpf [place] 2.1 H* (0.6-1.2) mmol/L 11/15/17 11/15/17 11/15/17 Range/Units 17:02 16:01 16:01 WBC (4.8-10.8) K/uL RBC (3.80-5.20) Mil/uL Hgb (11.0-16.0) g/dL Hct (34.0-47.0) % MCV (81.0-99.0) fL MCH (27.0-31.0) pg MCHC (33.0-37.0) g/dL RDW (11.5-14.5) % Plt Count (130-400) K/uL MPV (7.2-11.7) fL Neut % (Auto) (50.0-75.0) % Lymph % (Auto) (20.0-40.0) % [place] % (Auto) (0.0-10.0) % Eos % (Auto) (0.0-4.0) % Baso % (Auto) (0.0-2.0) % Neut # (Auto) (1.8-7.0) K/uL Lymph # (Auto) (1.0-4.3) K/uL [place] # (Auto) (0.0-0.8) K/uL Eos # (Auto) (0.0-0.7) K/uL Baso # (Auto) (0.0-0.2) K/uL Neutrophils % (Manual) (50-75) % Lymphocytes % (Manual) (20-40) % Monocytes % (Manual) (0-10) % Platelet Estimate (NORMAL) Sodium 149 H (132-148) mmol/L Potassium 4.4 (3.6-5.2) mmol/L Chloride 112 H (98-107) mmol/L Carbon Dioxide 19 L (22-30) mmol/L Anion Gap 22 H (10-20) BUN 97 H (7-17) mg/dL Creatinine 3.7 H (0.7-1.2) mg/dL Est GFR ( Amer) 14 Est GFR (Non-Af Amer) 12 POC Glucose (mg/dL) (65-110) mg/dL Random Glucose 135 H (65-105) mg/dL Calcium 9.8 (8.6-10.4) mg/dl Phosphorus (2.5-4.5) mg/dL Magnesium (1.6-2.3) mg/dL Total Bilirubin 0.9 (0.2-1.3) mg/dL AST 35 (14-36) U/L ALT 9 (9-52) U/L Alkaline Phosphatase 117 (38-126) U/L Troponin I 0.0150 (0.00-0.120) ng/mL Total Protein 7.4 (6.3-8.3) g/dL Albumin 4.2 (3.5-5.0) g/dL Globulin 3.2 (2.2-3.9) gm/dL Albumin/Globulin Ratio 1.3 (1.0-2.1) Urine Color Yellow (YELLOW) Urine Clarity Clear (Clear) Urine pH 5.0 (5.0-8.0) Ur Specific [place] 1.014 (1.003-1.030) Urine Protein Negative (NEGATIVE) mg/dL Urine Glucose (UA) Normal (Normal) mg/dL Urine Ketones Negative (NEGATIVE) mg/dL Urine Blood Negative (NEGATIVE) Urine Nitrate Negative (NEGATIVE) Urine Bilirubin Negative (NEGATIVE) Urine Urobilinogen Normal (0.2-1.0) mg/dL Ur Leukocyte Esterase Neg (Negative) Grace/uL Urine WBC (Auto) < 1 (0-5) /hpf [place] 2.1 H* (0.6-1.2) mmol/L 11/15/17 11/15/17 Range/Units 16:01 14:42 WBC 11.4 H (4.8-10.8) K/uL RBC 4.80 (3.80-5.20) Mil/uL Hgb 14.1 D (11.0-16.0) g/dL Hct 43.4 (34.0-47.0) % MCV 90.6 (81.0-99.0) fL MCH 29.5 (27.0-31.0) pg MCHC 32.6 L (33.0-37.0) g/dL RDW 14.3 (11.5-14.5) % Plt Count 279 D (130-400) K/uL MPV 9.5 (7.2-11.7) fL Neut % (Auto) 85.9 H (50.0-75.0) % Lymph % (Auto) 8.2 L (20.0-40.0) % [place] % (Auto) 4.5 (0.0-10.0) % Eos % (Auto) 1.2 (0.0-4.0) % Baso % (Auto) 0.2 (0.0-2.0) % Neut # (Auto) 9.8 H (1.8-7.0) K/uL Lymph # (Auto) 0.9 L (1.0-4.3) K/uL [place] # (Auto) 0.5 (0.0-0.8) K/uL Eos # (Auto) 0.1 (0.0-0.7) K/uL Baso # (Auto) 0.0 (0.0-0.2) K/uL Neutrophils % (Manual) 82 H (50-75) % Lymphocytes % (Manual) 12 L (20-40) % Monocytes % (Manual) 6 (0-10) % Platelet Estimate Normal (NORMAL) Sodium (132-148) mmol/L Potassium (3.6-5.2) mmol/L Chloride (98-107) mmol/L Carbon Dioxide (22-30) mmol/L Anion Gap (10-20) BUN (7-17) mg/dL Creatinine (0.7-1.2) mg/dL Est GFR ( Amer) Est GFR (Non-Af Amer) POC Glucose (mg/dL) 180 H (65-110) mg/dL Random Glucose (65-105) mg/dL Calcium (8.6-10.4) mg/dl Phosphorus (2.5-4.5) mg/dL Magnesium (1.6-2.3) mg/dL Total Bilirubin (0.2-1.3) mg/dL AST (14-36) U/L ALT (9-52) U/L Alkaline Phosphatase (38-126) U/L Troponin I (0.00-0.120) ng/mL Total Protein (6.3-8.3) g/dL Albumin (3.5-5.0) g/dL Globulin (2.2-3.9) gm/dL Albumin/Globulin Ratio (1.0-2.1) Urine Color (YELLOW) Urine Clarity (Clear) Urine pH (5.0-8.0) Ur Specific [place] (1.003-1.030) Urine Protein (NEGATIVE) mg/dL Urine Glucose (UA) (Normal) mg/dL Urine Ketones (NEGATIVE) mg/dL Urine Blood (NEGATIVE) Urine Nitrate (NEGATIVE) Urine Bilirubin (NEGATIVE) Urine Urobilinogen (0.2-1.0) mg/dL Ur Leukocyte Esterase (Negative) Grace/uL Urine WBC (Auto) (0-5) /hpf [place] (0.6-1.2) mmol/L Laboratory Results - last 24 hr 11/15/17 11/15/17 11/15/17 14:42 16:01 16:01 WBC 11.4 H RBC 4.80 Hgb 14.1 D Hct 43.4 MCV 90.6 MCH 29.5 MCHC 32.6 L RDW 14.3 Plt Count 279 D MPV 9.5 Neut % (Auto) 85.9 H Lymph % (Auto) 8.2 L [place] % (Auto) 4.5 Eos % (Auto) 1.2 Baso % (Auto) 0.2 Neut # (Auto) 9.8 H Lymph # (Auto) 0.9 L [place] # (Auto) 0.5 Eos # (Auto) 0.1 Baso # (Auto) 0.0 Neutrophils % (Manual) 82 H Lymphocytes % (Manual) 12 L Monocytes % (Manual) 6 Platelet Estimate Normal Sodium 149 H Potassium 4.4 Chloride 112 H Carbon Dioxide 19 L Anion Gap 22 H BUN 97 H Creatinine 3.7 H Est GFR ( Amer) 14 Est GFR (Non-Af Amer) 12 POC Glucose (mg/dL) 180 H Random Glucose 135 H Calcium 9.8 Phosphorus Magnesium Total Bilirubin 0.9 AST 35 ALT 9 Alkaline Phosphatase 117 Troponin I 0.0150 Total Protein 7.4 Albumin 4.2 Globulin 3.2 Albumin/Globulin Ratio 1.3 Urine Color Urine Clarity Urine pH Ur Specific [place] Urine Protein Urine Glucose (UA) Urine Ketones Urine Blood Urine Nitrate Urine Bilirubin Urine Urobilinogen Ur Leukocyte Esterase Urine WBC (Auto) [place] 11/15/17 11/15/17 11/15/17 16:01 17:02 20:35 WBC 11.5 H RBC 4.35 Hgb 13.0 Hct 39.2 MCV 90.2 MCH 29.9 MCHC 33.2 RDW 14.2 Plt Count 235 MPV 8.4 Neut % (Auto) 82.2 H Lymph % (Auto) 10.2 L [place] % (Auto) 5.7 Eos % (Auto) 1.6 Baso % (Auto) 0.3 Neut # (Auto) 9.4 H Lymph # (Auto) 1.2 [place] # (Auto) 0.6 Eos # (Auto) 0.2 Baso # (Auto) 0.0 Neutrophils % (Manual) Lymphocytes % (Manual) Monocytes % (Manual) Platelet Estimate Sodium Potassium Chloride Carbon Dioxide Anion Gap BUN Creatinine Est GFR ( Amer) Est GFR (Non-Af Amer) POC Glucose (mg/dL) Random Glucose Calcium Phosphorus Magnesium Total Bilirubin AST ALT Alkaline Phosphatase Troponin I Total Protein Albumin Globulin Albumin/Globulin Ratio Urine Color Yellow Urine Clarity Clear Urine pH 5.0 Ur Specific [place] 1.014 Urine Protein Negative Urine Glucose (UA) Normal Urine Ketones Negative Urine Blood Negative Urine Nitrate Negative Urine Bilirubin Negative Urine Urobilinogen Normal Ur Leukocyte Esterase Neg Urine WBC (Auto) < 1 [place] 2.1 H* 11/15/17 11/15/17 11/15/17 20:35 20:35 21:54 WBC RBC Hgb Hct MCV MCH MCHC RDW Plt Count MPV Neut % (Auto) Lymph % (Auto) [place] % (Auto) Eos % (Auto) Baso % (Auto) Neut # (Auto) Lymph # (Auto) [place] # (Auto) Eos # (Auto) Baso # (Auto) Neutrophils % (Manual) Lymphocytes % (Manual) Monocytes % (Manual) Platelet Estimate Sodium 150 H Potassium 4.3 Chloride 114 H Carbon Dioxide 23 Anion Gap 18 BUN 92 H Creatinine 3.7 H Est GFR ( Amer) 14 Est GFR (Non-Af Amer) 12 POC Glucose (mg/dL) Random Glucose 100 Calcium 9.2 Phosphorus 4.4 Magnesium 3.4 H Total Bilirubin 0.5 AST 31 ALT 7 L D Alkaline Phosphatase 111 Troponin I Total Protein 6.8 Albumin 3.8 Globulin 3.0 Albumin/Globulin Ratio 1.3 Urine Color Urine Clarity Urine pH Ur Specific [place] Urine Protein Urine Glucose (UA) Urine Ketones Urine Blood Urine Nitrate Urine Bilirubin Urine Urobilinogen Ur Leukocyte Esterase Urine WBC (Auto) [place] 2.1 H* 11/16/17 11/16/17 11/16/17 01:10 01:10 06:07 WBC RBC Hgb Hct MCV MCH MCHC RDW Plt Count MPV Neut % (Auto) Lymph % (Auto) [place] % (Auto) Eos % (Auto) Baso % (Auto) Neut # (Auto) Lymph # (Auto) [place] # (Auto) Eos # (Auto) Baso # (Auto) Neutrophils % (Manual) Lymphocytes % (Manual) Monocytes % (Manual) Platelet Estimate Sodium 148 147 Potassium 4.0 4.1 Chloride 114 H 114 H Carbon Dioxide 22 22 Anion Gap 16 15 BUN 91 H 88 H Creatinine 3.4 H 3.1 H Est GFR ( Amer) 15 17 Est GFR (Non-Af Amer) 13 14 POC Glucose (mg/dL) Random Glucose 104 101 Calcium 9.1 8.7 Phosphorus 4.1 Magnesium 3.2 H Total Bilirubin 0.8 AST 27 ALT 16 Alkaline Phosphatase 110 Troponin I Total Protein 6.2 L Albumin 3.5 Globulin 2.8 Albumin/Globulin Ratio 1.2 Urine Color Urine Clarity Urine pH Ur Specific [place] Urine Protein Urine Glucose (UA) Urine Ketones Urine Blood Urine Nitrate Urine Bilirubin Urine Urobilinogen Ur Leukocyte Esterase Urine WBC (Auto) [place] 2.1 H* 11/16/17 11/16/17 06:07 06:07 WBC 10.9 H RBC 4.24 Hgb 12.7 Hct 38.7 MCV 91.2 MCH 30.0 MCHC 32.9 L RDW 14.4 Plt Count 212 MPV 9.1 Neut % (Auto) 79.6 H Lymph % (Auto) 11.7 L [place] % (Auto) 5.3 Eos % (Auto) 3.2 Baso % (Auto) 0.2 Neut # (Auto) 8.7 H Lymph # (Auto) 1.3 [place] # (Auto) 0.6 Eos # (Auto) 0.3 Baso # (Auto) 0.0 Neutrophils % (Manual) Lymphocytes % (Manual) Monocytes % (Manual) Platelet Estimate Sodium Potassium Chloride Carbon Dioxide Anion Gap BUN Creatinine Est GFR ( Amer) Est GFR (Non-Af Amer) POC Glucose (mg/dL) Random Glucose Calcium Phosphorus Magnesium Total Bilirubin AST ALT Alkaline Phosphatase Troponin I Total Protein Albumin Globulin Albumin/Globulin Ratio Urine Color Urine Clarity Urine pH Ur Specific [place] Urine Protein Urine Glucose (UA) Urine Ketones Urine Blood Urine Nitrate Urine Bilirubin Urine Urobilinogen Ur Leukocyte Esterase Urine WBC (Auto) [place] 1.9 H EKG/Cardiology Studies: Cardiology / EKG Studies 11/15/17 14:46 EKG [ELECTROCARDIOGRAM] Stat Comment: Mode Of Transportation: BED Reason For Exam: cp 11/15/17 20:11 EKG [ELECTROCARDIOGRAM] Routine Comment: Mode Of Transportation: Reason For Exam: 22 Fingerstick Blood Sugar Results: 180 Critical Care Progress Note - Nutrition Nutrition: Nutrition Category Date Time Status Renal Diet [DIET] Diets 11/15/17 Dinner Active
[2017-11-16 09:18] LABS: CALCIUM 8.7 mg/dl (8.6-10.4)
--- NOTE | 2017-11-16 10:15 | CP.PCM.CON ---
History of Present Illness - History of Present Illness History of Present Illness: Information obtained form chart as pt unable toprovide any Patient is a 87 year old female with PMHx of HTN, Hypothyroidism, and Dementia, Bipolar disease on chronic lithium treatment. Recently hospitalized with a left arm fracture, following that the patient was transferred to rehabilitation. While in the rehabilitation patient was not eating well, not drinking enough, and she was not participating much activities. During the day today patient was not feeling well, the pressure was noted to be on the low side, and she fell on the floor, . She was transferred to emergency room. On initial labs - noted to have elevated creatinine , high lithium level and high sodium level , Patient was given 2 liters of fluid, and admitted to the hospital. There was no head injury noted, there was no loss of consciousness noted, except a brief syncopal attack in the [facility] At present, pt In ICU, awake, confused uv fluids running, did not eat breakfast PMHx: HTN, Hypothyroidism, Dementia, Bipolar, chronic lithium treatment PSHx: Denied SHx: Denied any tobacco, ETOH, or illicit drug use FHx: no family history of kidney disease Review of Systems - Review of Systems Systems not reviewed;Unavailable: Dementia, Altered Mental Status Past Patient History - Past Medical History & Family History Past Medical History?: Yes - Past Social History Smoking Status: Never Smoked - CARDIAC Hx Cardiac Disorders: Yes Hx Hypercholesterolemia: Yes Hx Hypertension: Yes - PULMONARY Hx Respiratory Disorders: No - NEUROLOGICAL Hx Neurological Disorder: No - HEENT Hx HEENT Problems: No - RENAL Hx Chronic Kidney Disease: No - ENDOCRINE/METABOLIC Hx Endocrine Disorders: Yes Hx Hypothyroidism: Yes - HEMATOLOGICAL/ONCOLOGICAL Hx Blood Disorders: No - INTEGUMENTARY Hx Dermatological Problems: No - MUSCULOSKELETAL/RHEUMATOLOGICAL Hx Musculoskeletal Disorders: Yes Hx Falls: Yes - GASTROINTESTINAL Hx Gastrointestinal Disorders: No - GENITOURINARY/GYNECOLOGICAL Hx Genitourinary Disorders: No - PSYCHIATRIC Hx Psychophysiologic Disorder: Yes Hx Anxiety: Yes Hx Bipolar Disorder: Yes Hx Depression: Yes Hx Substance Use: No - SURGICAL HISTORY Hx Surgeries: No Other/Comment: left distal radius closed reduction (11/04/17) - ANESTHESIA Hx Anesthesia: Yes Hx Anesthesia Reactions: No Hx Malignant Hyperthermia: No Has any member of the family had a problem w/ anesthesia?: No Meds Allergies/Adverse Reactions: Allergies Allergy/AdvReac Type Severity Reaction Status Date / Time No Known Allergies Allergy Verified 11/15/17 14:37 - Medications Medications: Current Medications Heparin Sodium (Porcine) (Heparin) 5,000 units SC Q12H [facility] Last Admin: 11/16/17 10:11 Dose: 5,000 units Sodium Chloride (Sodium Chloride 0.45%) 1,000 mls @ 150 mls/hr IV .Q6H40M [facility] Last Admin: 11/16/17 05:30 Dose: 150 mls/hr Levothyroxine Sodium (Synthroid) 50 mcg PO DAILY@0630 [facility] Last Admin: 11/16/17 06:27 Dose: Not Given Pneumococcal Polyvalent Vaccine (Pneumovax 23 Vaccine) 0.5 ml IM .ONCE ONE Stop: 11/17/17 10:01 Physical Exam - Constitutional Appears: Non-toxic, Confused - Head Exam Head Exam: ATRAUMATIC, NORMOCEPHALIC - Eye Exam Eye Exam: EOMI, PERRL - ENT Exam ENT Exam: Mucous Membranes Dry - Neck Exam Neck exam: Negative for: Lymphadenopathy - Respiratory Exam Respiratory Exam: Clear to Auscultation Bilateral. absent: Rhonchi, Wheezes - Cardiovascular Exam Cardiovascular Exam: REGULAR RHYTHM, +S1 - GI/Abdominal Exam GI & Abdominal Exam: Normal Bowel Sounds, Soft. absent: Tenderness - Extremities Exam Extremities exam: Negative for: joint swelling, pedal edema - Neurological Exam Additional comments: awake, not oriented - Psychiatric Exam Psychiatric exam: Flat Affect - Skin Skin Exam: Normal Color, Warm Results - Vital Signs Recent Vital Signs: Last Vital Signs Temp 97.8 F 11/16/17 04:00 Pulse 64 11/16/17 09:12 Resp 14 11/16/17 09:12 BP 101/47 L 11/16/17 09:12 Pulse Ox 100 11/16/17 09:12 - Labs Result Diagrams: 11/16/17 06:07 11/16/17 08:59 Labs: Laboratory Results - last 24 hr 11/15/17 11/15/17 11/15/17 14:42 16:01 16:01 WBC 11.4 H RBC 4.80 Hgb 14.1 D Hct 43.4 MCV 90.6 MCH 29.5 MCHC 32.6 L RDW 14.3 Plt Count 279 D MPV 9.5 Neut % (Auto) 85.9 H Lymph % (Auto) 8.2 L Frio % (Auto) 4.5 Eos % (Auto) 1.2 Baso % (Auto) 0.2 Neut # (Auto) 9.8 H Lymph # (Auto) 0.9 L Frio # (Auto) 0.5 Eos # (Auto) 0.1 Baso # (Auto) 0.0 Neutrophils % (Manual) 82 H Lymphocytes % (Manual) 12 L Monocytes % (Manual) 6 Platelet Estimate Normal Sodium 149 H Potassium 4.4 Chloride 112 H Carbon Dioxide 19 L Anion Gap 22 H BUN 97 H Creatinine 3.7 H Est GFR ( Amer) 14 Est GFR (Non-Af Amer) 12 POC Glucose (mg/dL) 180 H Random Glucose 135 H Calcium 9.8 Phosphorus Magnesium Total Bilirubin 0.9 AST 35 ALT 9 Alkaline Phosphatase 117 Troponin I 0.0150 Total Protein 7.4 Albumin 4.2 Globulin 3.2 Albumin/Globulin Ratio 1.3 Urine Color Urine Clarity Urine pH Ur Specific [place] Urine Protein Urine Glucose (UA) Urine Ketones Urine Blood Urine Nitrate Urine Bilirubin Urine Urobilinogen Ur Leukocyte Esterase Urine WBC (Auto) [place] 11/15/17 11/15/17 11/15/17 16:01 17:02 20:35 WBC 11.5 H RBC 4.35 Hgb 13.0 Hct 39.2 MCV 90.2 MCH 29.9 MCHC 33.2 RDW 14.2 Plt Count 235 MPV 8.4 Neut % (Auto) 82.2 H Lymph % (Auto) 10.2 L Frio % (Auto) 5.7 Eos % (Auto) 1.6 Baso % (Auto) 0.3 Neut # (Auto) 9.4 H Lymph # (Auto) 1.2 Frio # (Auto) 0.6 Eos # (Auto) 0.2 Baso # (Auto) 0.0 Neutrophils % (Manual) Lymphocytes % (Manual) Monocytes % (Manual) Platelet Estimate Sodium Potassium Chloride Carbon Dioxide Anion Gap BUN Creatinine Est GFR ( Amer) Est GFR (Non-Af Amer) POC Glucose (mg/dL) Random Glucose Calcium Phosphorus Magnesium Total Bilirubin AST ALT Alkaline Phosphatase Troponin I Total Protein Albumin Globulin Albumin/Globulin Ratio Urine Color Yellow Urine Clarity Clear Urine pH 5.0 Ur Specific [place] 1.014 Urine Protein Negative Urine Glucose (UA) Normal Urine Ketones Negative Urine Blood Negative Urine Nitrate Negative Urine Bilirubin Negative Urine Urobilinogen Normal Ur Leukocyte Esterase Neg Urine WBC (Auto) < 1 [place] 2.1 H* 11/15/17 11/15/17 11/15/17 20:35 20:35 21:54 WBC RBC Hgb Hct MCV MCH MCHC RDW Plt Count MPV Neut % (Auto) Lymph % (Auto) Frio % (Auto) Eos % (Auto) Baso % (Auto) Neut # (Auto) Lymph # (Auto) Frio # (Auto) Eos # (Auto) Baso # (Auto) Neutrophils % (Manual) Lymphocytes % (Manual) Monocytes % (Manual) Platelet Estimate Sodium 150 H Potassium 4.3 Chloride 114 H Carbon Dioxide 23 Anion Gap 18 BUN 92 H Creatinine 3.7 H Est GFR ( Amer) 14 Est GFR (Non-Af Amer) 12 POC Glucose (mg/dL) Random Glucose 100 Calcium 9.2 Phosphorus 4.4 Magnesium 3.4 H Total Bilirubin 0.5 AST 31 ALT 7 L D Alkaline Phosphatase 111 Troponin I Total Protein 6.8 Albumin 3.8 Globulin 3.0 Albumin/Globulin Ratio 1.3 Urine Color Urine Clarity Urine pH Ur Specific [place] Urine Protein Urine Glucose (UA) Urine Ketones Urine Blood Urine Nitrate Urine Bilirubin Urine Urobilinogen Ur Leukocyte Esterase Urine WBC (Auto) [place] 2.1 H* 11/16/17 11/16/17 11/16/17 01:10 01:10 06:07 WBC RBC Hgb Hct MCV MCH MCHC RDW Plt Count MPV Neut % (Auto) Lymph % (Auto) Frio % (Auto) Eos % (Auto) Baso % (Auto) Neut # (Auto) Lymph # (Auto) Frio # (Auto) Eos # (Auto) Baso # (Auto) Neutrophils % (Manual) Lymphocytes % (Manual) Monocytes % (Manual) Platelet Estimate Sodium 148 147 Potassium 4.0 4.1 Chloride 114 H 114 H Carbon Dioxide 22 22 Anion Gap 16 15 BUN 91 H 88 H Creatinine 3.4 H 3.1 H Est GFR ( Amer) 15 17 Est GFR (Non-Af Amer) 13 14 POC Glucose (mg/dL) Random Glucose 104 101 Calcium 9.1 8.7 Phosphorus 4.1 Magnesium 3.2 H Total Bilirubin 0.8 AST 27 ALT 16 Alkaline Phosphatase 110 Troponin I Total Protein 6.2 L Albumin 3.5 Globulin 2.8 Albumin/Globulin Ratio 1.2 Urine Color Urine Clarity Urine pH Ur Specific [place] Urine Protein Urine Glucose (UA) Urine Ketones Urine Blood Urine Nitrate Urine Bilirubin Urine Urobilinogen Ur Leukocyte Esterase Urine WBC (Auto) [place] 2.1 H* 11/16/17 11/16/17 11/16/17 06:07 06:07 08:59 WBC 10.9 H RBC 4.24 Hgb 12.7 Hct 38.7 MCV 91.2 MCH 30.0 MCHC 32.9 L RDW 14.4 Plt Count 212 MPV 9.1 Neut % (Auto) 79.6 H Lymph % (Auto) 11.7 L Frio % (Auto) 5.3 Eos % (Auto) 3.2 Baso % (Auto) 0.2 Neut # (Auto) 8.7 H Lymph # (Auto) 1.3 Frio # (Auto) 0.6 Eos # (Auto) 0.3 Baso # (Auto) 0.0 Neutrophils % (Manual) Lymphocytes % (Manual) Monocytes % (Manual) Platelet Estimate Sodium 146 Potassium 4.0 Chloride 113 H Carbon Dioxide 24 Anion Gap 13 BUN 83 H Creatinine 3.0 H Est GFR ( Amer) 18 Est GFR (Non-Af Amer) 15 POC Glucose (mg/dL) Random Glucose 98 Calcium 8.7 Phosphorus Magnesium Total Bilirubin AST ALT Alkaline Phosphatase Troponin I Total Protein Albumin Globulin Albumin/Globulin Ratio Urine Color Urine Clarity Urine pH Ur Specific [place] Urine Protein Urine Glucose (UA) Urine Ketones Urine Blood Urine Nitrate Urine Bilirubin Urine Urobilinogen Ur Leukocyte Esterase Urine WBC (Auto) [place] 1.9 H 11/16/17 08:59 WBC RBC Hgb Hct MCV MCH MCHC RDW Plt Count MPV Neut % (Auto) Lymph % (Auto) Frio % (Auto) Eos % (Auto) Baso % (Auto) Neut # (Auto) Lymph # (Auto) Frio # (Auto) Eos # (Auto) Baso # (Auto) Neutrophils % (Manual) Lymphocytes % (Manual) Monocytes % (Manual) Platelet Estimate Sodium Potassium Chloride Carbon Dioxide Anion Gap BUN Creatinine Est GFR ( Amer) Est GFR (Non-Af Amer) POC Glucose (mg/dL) Random Glucose Calcium Phosphorus Magnesium Total Bilirubin AST ALT Alkaline Phosphatase Troponin I Total Protein Albumin Globulin Albumin/Globulin Ratio Urine Color Urine Clarity Urine pH Ur Specific [place] Urine Protein Urine Glucose (UA) Urine Ketones Urine Blood Urine Nitrate Urine Bilirubin Urine Urobilinogen Ur Leukocyte Esterase Urine WBC (Auto) [place] 1.9 H Assessment & Plan (1) Hypernatremia Status: Acute (2) Dehydration Status: Acute (3) Acute renal insufficiency Status: Acute (4) Syncope Status: Acute (5) Displaced fracture of distal end of left radius Status: Acute - Assessment and Plan (Free Text) Plan: RACHEL and hypernatremia secondary to dehydration high lithium level due to the above as well Cr now improving with fluids continue 1/2 NS monitor UOP no need for HD at this time daily labs and lithium level discussed with Dr Mobley
[2017-11-16 14:21] LABS: CALCIUM 6.2 mg/dl (8.6-10.4)
[2017-11-16] MEDS: Lactated Ringer's 1,000 ML IV SCH (14:28)
[2017-11-16 17:19] LABS: CALCIUM 8.6 mg/dl (8.6-10.4)
[2017-11-16 23:50] LABS: CALCIUM 8.3 mg/dl (8.6-10.4)
[2017-11-17] MEDS: Lactated Ringer's 1,000 ML IV SCH (01:16)
[2017-11-17] MEDS: Sodium Chloride 0.45% 1,000 ML IV SCH ×3 (01:35→16:05)
--- NOTE | 2017-11-17 02:35 | CON ---
DATE: 11/16/2017 CHIEF COMPLAINT: The patient was referred by Dr. Rosales for evaluation and co-management of the patient's bipolar disorder. The patient is admitted here for lithium toxicity as the patient has been refusing to eat and drink in the care home, patient was admitted with dehydration. HISTORY OF PRESENT ILLNESS: This is an 87-year-old female who is well known to me having met the patient in the office for more than 10 years. The patient has a history of bipolar disorder, has been maintained on lithium 300 mg p.o. at bedtime for her bipolar disorder. The patient was last seen by me. The patient was admitted for subacute rehab in [facility] where she was admitted there for reconditioning after she had a fall at home in her kitchen.re. The patient had left wrist fracture. In the care home, she has been refusing to eat or drink fluids. She was also noted in the care home to becoming weaker and also having problems with walking and had also syncopal episodes. In the emergency room, her lithium level was noted to be markedly elevated, 2.1. Her sodium was elevated as well as the creatinine was markedly elevated at 3.7. The patient was admitted to ICU, now her lithium level is 1.4. The patient is currently off her psych medications and is seen for co-management. The patient is very drowsy when seen and currently in the ICU bed #17. PAST PSYCHIATRIC HISTORY: The patient has a history of bipolar disorder for many years and has been on lithium for more than 40 years. The patient had a history of previous lithium toxicity in the past. Also history of dementia, she was taking Namenda 10 mg daily. PAST MEDICAL HISTORY: The patient has a history of closed fracture, history of dehydration, history of syncope, history of hyponatremia.Hx of fracture of left radius, s/p orif. DRUG AND ALCOHOL HISTORY: Denies. ALLERGIES: NO KNOWN ALLERGIES. PSYCHOSOCIAL HISTORY: The patient lives with her sister Kei. LIST OF CURRENT MEDICATIONS: The patient is off psych medications, currently on Synthroid. The patient is on IV fluids. REVIEW OF SYSTEMS: GENERAL: The patient is very drowsy, can hardly speak. She is still confused. The patient is still refusing to eat. According to the nurse, her sister came and the patient took a few bites. SKIN: No diaphoresis. HEENT: The patient is complaining of headache with dizziness. NECK: Supple. RESPIRATORY: No dyspnea. CARDIOVASCULAR: No chest pain. GASTROINTESTINAL: Very poor p.o. intake. EXTREMITIES: The patient moving extremities. MUSCULOSKELETAL: Feels weak. NEUROLOGIC: Alert with periods of confusion. GENITOURINARY: No urinary problems. VITAL SIGNS: Temperature is 97.5, pulse 65, blood pressure is low at 88/59, respirations 17, oxygen saturation 100% on room air. MENTAL STATUS EXAMINATION: An elderly female who is currently confused, oriented to place and person. Mood is dysphoric. Affect is restricted. Speech is slow. Thought process confused. Thought content, no overt psychosis. No suicidal or homicidal ideation. Attention and memory seem to be fair. Insight and judgment, fair. Impulse control is fair. LABORATORY DATA: Sodium 147, creatinine is 3.1, BUN 88. Liver function tests are within normal limits. Last lithium level was 1.4. UA negative. IMPRESSION: History of bipolar disorder with superimposed delirium, metabolic encephalopathy secondary to lithium toxicity as well as history of dehydration. History of dementia with mood changes. PLAN AND RECOMMENDATIONS: The patient is seen. Meds reviewed. Continue present management as outlined. Monitor Forman level and renal function tests.. We will keep the patient off psych medications for now. Continue IV fluids. The patient currently in ICU. Thank you for the consult. Solomon Montes MD MTDD
[2017-11-17] MEDS: Levothyroxine 50 MCG TAB PO SCH (06:14)
[2017-11-17 06:20] LABS: BASO % 0.4 % (0.0-2.0); EOS # 0.4 K/uL (0.0-0.7); EOS % 3.9 % (0.0-4.0); HEMOGLOBIN 11.9 g/dL (11.0-16.0); LYMPH # 1.6 K/uL (1.0-4.3); LYMPH % 15.6 % (20.0-40.0); MEAN CELL VOLUME 92.4 fL (81.0-99.0); MEAN CORPUSCULAR HEMOGLOBIN 30.3 pg (27.0-31.0); MEAN CORPUSCULAR HGB CONC 32.8 g/dL (33.0-37.0); MEAN PLATELET VOLUME 9.1 fL (7.2-11.7); MONO # 0.6 K/uL (0.0-0.8); MONO % 6.3 % (0.0-10.0); NEUT # 7.6 K/uL (1.8-7.0); NEUT % 73.8 % (50.0-75.0); NRBC % 0.1 % (0.0-2.0); RBC 3.92 Mil/uL (3.80-5.20); RED CELL DISTRIBUTION WIDTH 14.4 % (11.5-14.5); WHITE BLOOD COUNT 10.3 K/uL (4.8-10.8)
[2017-11-17 06:37] LABS: ALB/GLOB RATIO 1.1 (1.0-2.1); ALBUMIN 2.8 g/dL (3.5-5.0); CALCIUM 8.4 mg/dl (8.6-10.4)
--- NOTE | 2017-11-17 08:32 | CP.CCUPN ---
CCU Subjective - Physician Review Events Since Last Encounter (Free Text): 11/17/17 08:32 Patient is now awake. Still dehydrated. Dry mucosa noted Slow to respond, but appropriate Moving all 4 extremities No chest pain. Poor intake Having some difficulty in swallowing, associated with a cough On examination: Vital signs stable. Chest good air entry bilaterally irregular heart so nontender abdomen no pedal edema Labs reviewed in Nonspecific. Improving lithium level, also improving sodium level Assessment and recommendation: 87-year-old female with a history of bipolar disease, hypertension, anxiety. Recent the left arm radial fracture. Admitted with lithium toxicity severe dehydration slowly improving Continue the IV hydration. Out of bed to chair. IV fluid, intake and output monitoring and will follow-up the patient wll place picc and PPN CCU Objective - Vital Signs / Intake & Output Vital Signs (Last 4 hours): Vital Signs Temp Pulse Resp BP Pulse Ox 11/17/17 08:11 67 14 98/49 L 100 11/17/17 08:00 97.3 F L 82 17 100 11/17/17 07:11 68 15 102/50 L 100 11/17/17 07:00 68 15 100 11/17/17 06:11 71 17 97/53 L 100 11/17/17 06:00 74 15 100 11/17/17 05:11 69 16 99/49 L 100 11/17/17 05:08 71 13 109/59 L 100 11/17/17 05:07 73 16 100 11/17/17 05:00 69 15 100 Intake and Output (Last 8hrs): Intake & Output 11/16/17 11/17/17 11/17/17 22:59 06:59 14:59 Intake Total 1999 Output Total 410 480 80 Balance 1590 1520 420 Weight 110 lb 12.8 oz Intake: Intake, IV Amount 1999 1999 500 right wrist 1200 1200 300 right wrist #2 800 800 200 Oral 0 0 0 Output: Urine 410 480 80 Urethral (Yanez) 410 480 80 Other: # Bowel Movements 0 0 0 - Physical Exam Head: Positive for: Atraumatic, Normocephalic Pupils: Positive for: PERRL Extroacular Muscles: Positive for: EOMI Conjunctiva: Positive for: Normal Mouth: Positive for: Moist Mucous Membranes Neck: Positive for: Normal Range of Motion Respiratory/Chest: Positive for: Clear to Auscultation, Good Air Exchange Cardiovascular: Positive for: Tachycardic Abdomen: Positive for: Normal Bowel Sounds. Negative for: Tenderness, Distention Neurological: Positive for: CN II-XII Intact Psychiatric: Positive for: Alert. Negative for: Oriented x 3 - Medications Active Medications: Active Medications Generic Name Dose Route Start Last Admin Trade Name Freq PRN Reason Stop Dose Admin Heparin Sodium (Porcine) 5,000 units 11/15/17 22:00 11/16/17 21:19 Heparin SC 5,000 units Q12H [facility] Administration Sodium Chloride 1,000 mls @ 150 mls/hr 11/15/17 23:45 11/17/17 01:35 Sodium Chloride 0.45% IV 150 mls/hr .[id number] [facility] Administration Levothyroxine Sodium 50 mcg 11/16/17 06:30 11/17/17 06:14 Synthroid PO Not Given DAILY@0630 [facility] Pneumococcal Polyvalent Vaccine 0.5 ml 11/17/17 10:00 Pneumovax 23 Vaccine IM 11/17/17 10:01 .ONCE ONE - Patient Studies Lab Studies: Lab Studies 11/17/17 11/17/17 11/17/17 Range/Units 06:10 06:10 06:10 WBC 10.3 (4.8-10.8) K/uL RBC 3.92 (3.80-5.20) Mil/uL Hgb 11.9 (11.0-16.0) g/dL Hct 36.2 (34.0-47.0) % MCV 92.4 (81.0-99.0) fL MCH 30.3 (27.0-31.0) pg MCHC 32.8 L (33.0-37.0) g/dL RDW 14.4 (11.5-14.5) % Plt Count 165 (130-400) K/uL MPV 9.1 (7.2-11.7) fL Neut % (Auto) 73.8 (50.0-75.0) % Lymph % (Auto) 15.6 L (20.0-40.0) % Lynn % (Auto) 6.3 (0.0-10.0) % Eos % (Auto) 3.9 (0.0-4.0) % Baso % (Auto) 0.4 (0.0-2.0) % Neut # (Auto) 7.6 H (1.8-7.0) K/uL Lymph # (Auto) 1.6 (1.0-4.3) K/uL Lynn # (Auto) 0.6 (0.0-0.8) K/uL Eos # (Auto) 0.4 (0.0-0.7) K/uL Baso # (Auto) 0.0 (0.0-0.2) K/uL Sodium 142 (132-148) mmol/L Potassium 4.4 (3.6-5.2) mmol/L Chloride 116 H (98-107) mmol/L Carbon Dioxide 15 L (22-30) mmol/L Anion Gap 16 (10-20) BUN 64 H (7-17) mg/dL Creatinine 2.3 H (0.7-1.2) mg/dL Est GFR ( Amer) 24 Est GFR (Non-Af Amer) 20 Random Glucose 63 L (65-105) mg/dL Calcium 8.4 L (8.6-10.4) mg/dl Phosphorus 3.7 (2.5-4.5) mg/dL Magnesium 2.8 H (1.6-2.3) mg/dL Total Bilirubin 0.7 (0.2-1.3) mg/dL AST 37 H D (14-36) U/L ALT 11 (9-52) U/L Alkaline Phosphatase 102 (38-126) U/L Total Protein 5.4 L (6.3-8.3) g/dL Albumin 2.8 L (3.5-5.0) g/dL Globulin 2.6 (2.2-3.9) gm/dL Albumin/Globulin Ratio 1.1 (1.0-2.1) [place] 1.7 H (0.6-1.2) mmol/L 11/16/17 11/16/17 11/16/17 Range/Units 21:35 21:35 16:48 WBC (4.8-10.8) K/uL RBC (3.80-5.20) Mil/uL Hgb (11.0-16.0) g/dL Hct (34.0-47.0) % MCV (81.0-99.0) fL MCH (27.0-31.0) pg MCHC (33.0-37.0) g/dL RDW (11.5-14.5) % Plt Count (130-400) K/uL MPV (7.2-11.7) fL Neut % (Auto) (50.0-75.0) % Lymph % (Auto) (20.0-40.0) % Lynn % (Auto) (0.0-10.0) % Eos % (Auto) (0.0-4.0) % Baso % (Auto) (0.0-2.0) % Neut # (Auto) (1.8-7.0) K/uL Lymph # (Auto) (1.0-4.3) K/uL Lynn # (Auto) (0.0-0.8) K/uL Eos # (Auto) (0.0-0.7) K/uL Baso # (Auto) (0.0-0.2) K/uL Sodium 144 (132-148) mmol/L Potassium 4.3 (3.6-5.2) mmol/L Chloride 116 H (98-107) mmol/L Carbon Dioxide 18 L (22-30) mmol/L Anion Gap 14 (10-20) BUN 74 H (7-17) mg/dL Creatinine 2.5 H (0.7-1.2) mg/dL Est GFR ( Amer) 22 Est GFR (Non-Af Amer) 18 Random Glucose 71 (65-105) mg/dL Calcium 8.3 L (8.6-10.4) mg/dl Phosphorus (2.5-4.5) mg/dL Magnesium (1.6-2.3) mg/dL Total Bilirubin (0.2-1.3) mg/dL AST (14-36) U/L ALT (9-52) U/L Alkaline Phosphatase (38-126) U/L Total Protein (6.3-8.3) g/dL Albumin (3.5-5.0) g/dL Globulin (2.2-3.9) gm/dL Albumin/Globulin Ratio (1.0-2.1) [place] 0.9 1.9 H (0.6-1.2) mmol/L 11/16/17 11/16/17 11/16/17 Range/Units 16:48 13:08 13:08 WBC (4.8-10.8) K/uL RBC (3.80-5.20) Mil/uL Hgb (11.0-16.0) g/dL Hct (34.0-47.0) % MCV (81.0-99.0) fL MCH (27.0-31.0) pg MCHC (33.0-37.0) g/dL RDW (11.5-14.5) % Plt Count (130-400) K/uL MPV (7.2-11.7) fL Neut % (Auto) (50.0-75.0) % Lymph % (Auto) (20.0-40.0) % Lynn % (Auto) (0.0-10.0) % Eos % (Auto) (0.0-4.0) % Baso % (Auto) (0.0-2.0) % Neut # (Auto) (1.8-7.0) K/uL Lymph # (Auto) (1.0-4.3) K/uL Lynn # (Auto) (0.0-0.8) K/uL Eos # (Auto) (0.0-0.7) K/uL Baso # (Auto) (0.0-0.2) K/uL Sodium 144 125 L (132-148) mmol/L Potassium 4.4 3.0 L (3.6-5.2) mmol/L Chloride 115 H 101 (98-107) mmol/L Carbon Dioxide 20 L 18 L (22-30) mmol/L Anion Gap 14 8 L (10-20) BUN 77 H 58 H (7-17) mg/dL Creatinine 2.7 H 1.8 H (0.7-1.2) mg/dL Est GFR ( Amer) 20 32 Est GFR (Non-Af Amer) 17 27 Random Glucose 80 70 (65-105) mg/dL Calcium 8.6 6.2 L (8.6-10.4) mg/dl Phosphorus (2.5-4.5) mg/dL Magnesium (1.6-2.3) mg/dL Total Bilirubin (0.2-1.3) mg/dL AST (14-36) U/L ALT (9-52) U/L Alkaline Phosphatase (38-126) U/L Total Protein (6.3-8.3) g/dL Albumin (3.5-5.0) g/dL Globulin (2.2-3.9) gm/dL Albumin/Globulin Ratio (1.0-2.1) [place] 1.4 H (0.6-1.2) mmol/L 11/16/17 11/16/17 Range/Units 08:59 08:59 WBC (4.8-10.8) K/uL RBC (3.80-5.20) Mil/uL Hgb (11.0-16.0) g/dL Hct (34.0-47.0) % MCV (81.0-99.0) fL MCH (27.0-31.0) pg MCHC (33.0-37.0) g/dL RDW (11.5-14.5) % Plt Count (130-400) K/uL MPV (7.2-11.7) fL Neut % (Auto) (50.0-75.0) % Lymph % (Auto) (20.0-40.0) % Lynn % (Auto) (0.0-10.0) % Eos % (Auto) (0.0-4.0) % Baso % (Auto) (0.0-2.0) % Neut # (Auto) (1.8-7.0) K/uL Lymph # (Auto) (1.0-4.3) K/uL Lynn # (Auto) (0.0-0.8) K/uL Eos # (Auto) (0.0-0.7) K/uL Baso # (Auto) (0.0-0.2) K/uL Sodium 146 (132-148) mmol/L Potassium 4.0 (3.6-5.2) mmol/L Chloride 113 H (98-107) mmol/L Carbon Dioxide 24 (22-30) mmol/L Anion Gap 13 (10-20) BUN 83 H (7-17) mg/dL Creatinine 3.0 H (0.7-1.2) mg/dL Est GFR ( Amer) 18 Est GFR (Non-Af Amer) 15 Random Glucose 98 (65-105) mg/dL Calcium 8.7 (8.6-10.4) mg/dl Phosphorus (2.5-4.5) mg/dL Magnesium (1.6-2.3) mg/dL Total Bilirubin (0.2-1.3) mg/dL AST (14-36) U/L ALT (9-52) U/L Alkaline Phosphatase (38-126) U/L Total Protein (6.3-8.3) g/dL Albumin (3.5-5.0) g/dL Globulin (2.2-3.9) gm/dL Albumin/Globulin Ratio (1.0-2.1) [place] 1.9 H (0.6-1.2) mmol/L Laboratory Results - last 24 hr 11/16/17 11/16/17 11/16/17 08:59 08:59 13:08 WBC RBC Hgb Hct MCV MCH MCHC RDW Plt Count MPV Neut % (Auto) Lymph % (Auto) Lynn % (Auto) Eos % (Auto) Baso % (Auto) Neut # (Auto) Lymph # (Auto) Lynn # (Auto) Eos # (Auto) Baso # (Auto) Sodium 146 125 L Potassium 4.0 3.0 L Chloride 113 H 101 Carbon Dioxide 24 18 L Anion Gap 13 8 L BUN 83 H 58 H Creatinine 3.0 H 1.8 H Est GFR ( Amer) 18 32 Est GFR (Non-Af Amer) 15 27 Random Glucose 98 70 Calcium 8.7 6.2 L Phosphorus Magnesium Total Bilirubin AST ALT Alkaline Phosphatase Total Protein Albumin Globulin Albumin/Globulin Ratio [place] 1.9 H 11/16/17 11/16/17 11/16/17 13:08 16:48 16:48 WBC RBC Hgb Hct MCV MCH MCHC RDW Plt Count MPV Neut % (Auto) Lymph % (Auto) Lynn % (Auto) Eos % (Auto) Baso % (Auto) Neut # (Auto) Lymph # (Auto) Lynn # (Auto) Eos # (Auto) Baso # (Auto) Sodium 144 Potassium 4.4 Chloride 115 H Carbon Dioxide 20 L Anion Gap 14 BUN 77 H Creatinine 2.7 H Est GFR ( Amer) 20 Est GFR (Non-Af Amer) 17 Random Glucose 80 Calcium 8.6 Phosphorus Magnesium Total Bilirubin AST ALT Alkaline Phosphatase Total Protein Albumin Globulin Albumin/Globulin Ratio [place] 1.4 H 1.9 H 11/16/17 11/16/17 11/17/17 21:35 21:35 06:10 WBC 10.3 RBC 3.92 Hgb 11.9 Hct 36.2 MCV 92.4 MCH 30.3 MCHC 32.8 L RDW 14.4 Plt Count 165 MPV 9.1 Neut % (Auto) 73.8 Lymph % (Auto) 15.6 L Lynn % (Auto) 6.3 Eos % (Auto) 3.9 Baso % (Auto) 0.4 Neut # (Auto) 7.6 H Lymph # (Auto) 1.6 Lynn # (Auto) 0.6 Eos # (Auto) 0.4 Baso # (Auto) 0.0 Sodium 144 Potassium 4.3 Chloride 116 H Carbon Dioxide 18 L Anion Gap 14 BUN 74 H Creatinine 2.5 H Est GFR ( Amer) 22 Est GFR (Non-Af Amer) 18 Random Glucose 71 Calcium 8.3 L Phosphorus Magnesium Total Bilirubin AST ALT Alkaline Phosphatase Total Protein Albumin Globulin Albumin/Globulin Ratio [place] 0.9 11/17/17 11/17/17 06:10 06:10 WBC RBC Hgb Hct MCV MCH MCHC RDW Plt Count MPV Neut % (Auto) Lymph % (Auto) Lynn % (Auto) Eos % (Auto) Baso % (Auto) Neut # (Auto) Lymph # (Auto) Lynn # (Auto) Eos # (Auto) Baso # (Auto) Sodium 142 Potassium 4.4 Chloride 116 H Carbon Dioxide 15 L Anion Gap 16 BUN 64 H Creatinine 2.3 H Est GFR ( Amer) 24 Est GFR (Non-Af Amer) 20 Random Glucose 63 L Calcium 8.4 L Phosphorus 3.7 Magnesium 2.8 H Total Bilirubin 0.7 AST 37 H D ALT 11 Alkaline Phosphatase 102 Total Protein 5.4 L Albumin 2.8 L Globulin 2.6 Albumin/Globulin Ratio 1.1 [place] 1.7 H Fingerstick Blood Sugar Results: 180 Critical Care Progress Note - Nutrition Nutrition: Nutrition Category Date Time Status Renal Diet [DIET] Diets 11/15/17 Dinner Active
[2017-11-17] MEDS ORDERED: Dextrose 50% SYRINGE Inj (50 ml) IV ONE (09:45)
[2017-11-17] MEDS ORDERED: Pneumococcal 23-Valent Vaccine IM ONE (10:00)
[2017-11-17] MEDS: PPN IV SCH (17:34)
--- NOTE | 2017-11-17 18:29 | RAD ---
PROCEDURE: CHEST RADIOGRAPH, 1 VIEW HISTORY: PIcc line placement COMPARISON: Comparison is made to 11/15/2017 FINDINGS: LUNGS: No significant interval change in the lungs noted since the previous exam. PLEURA: No pneumothorax or pleural fluid seen. CARDIOVASCULAR: Normal. OSSEOUS STRUCTURES: No significant abnormalities. VISUALIZED UPPER ABDOMEN: Normal. OTHER FINDINGS: Right-sided PICC line is seen in place with the tip is likely at the SVC right atrium junction. IMPRESSION: No significant interval change. Appropriate position of the right-sided PICC line.
[2017-11-18] MEDS: Levothyroxine 50 MCG TAB PO SCH (05:58)
[2017-11-18 07:02] LABS: BASO % 0.3 % (0.0-2.0); EOS # 0.2 K/uL (0.0-0.7); EOS % 2.4 % (0.0-4.0); HEMOGLOBIN 11.5 g/dL (11.0-16.0); LYMPH # 0.8 K/uL (1.0-4.3); LYMPH % 10.5 % (20.0-40.0); MEAN CELL VOLUME 89.1 fL (81.0-99.0); MEAN CORPUSCULAR HEMOGLOBIN 30.3 pg (27.0-31.0); MEAN PLATELET VOLUME 9.3 fL (7.2-11.7); MONO # 0.4 K/uL (0.0-0.8); MONO % 4.9 % (0.0-10.0); NEUT # 6.2 K/uL (1.8-7.0); NEUT % 81.9 % (50.0-75.0); RBC 3.79 Mil/uL (3.80-5.20); RED CELL DISTRIBUTION WIDTH 13.7 % (11.5-14.5); WHITE BLOOD COUNT 7.6 K/uL (4.8-10.8)
[2017-11-18 07:46] LABS: ALB/GLOB RATIO 1.1 (1.0-2.1); ALBUMIN 2.8 g/dL (3.5-5.0); CALCIUM 8.5 mg/dl (8.6-10.4)
--- NOTE | 2017-11-18 14:19 | CP.PCM.PN ---
Subjective - Date & Time of Evaluation Date of Evaluation: 11/18/17 Time of Evaluation: 14:16 - Subjective Subjective: poorly responsive- apparently no changes in mental ststus BP controlled creatinine decreasing- 1.8; RACHEL resolving lithium level now normal Objective - Vital Signs/Intake and Output Vital Signs (last 24 hours): Temp Pulse Resp BP Pulse Ox 97.5 F L 70 20 116/69 96 11/18/17 08:23 11/18/17 08:23 11/18/17 08:23 11/18/17 08:23 11/18/17 08:23 Intake and Output: 11/18/17 11/18/17 06:59 18:59 Intake Total 378 Output Total 410 Balance -32 - Medications Medications: Current Medications Heparin Sodium (Porcine) (Heparin) 5,000 units SC Q12H [facility] Last Admin: 11/18/17 10:43 Dose: 5,000 units Insulin Human Regular 5 unit/Chromium/Copper/Manganese/Zinc 1 ml/ Amino Acids 1 ,001.05 mls @ 42 mls/hr IV .[id number] [facility] Last Admin: 11/17/17 17:34 Dose: 42 mls/hr Insulin Human Regular 5 unit/Chromium/Copper/Manganese/Zinc 1 ml/ Multivitamins/ Vitamin C 10 ml/ Amino Acids 1,011.05 mls @ 42 mls/hr IV .Q24H [facility] Stop: 11/19/17 17:59 Levothyroxine Sodium (Synthroid) 50 mcg PO DAILY@0630 [facility] Last Admin: 11/18/17 05:58 Dose: 50 mcg - Labs Labs: 11/18/17 06:56 11/18/17 06:56 - Constitutional Appears: No Acute Distress, Chronically Ill - Head Exam Head Exam: ATRAUMATIC, NORMAL INSPECTION - Eye Exam Eye Exam: EOMI, Normal appearance - Neck Exam Neck Exam: Normal Inspection. absent: Tenderness - Respiratory Exam Respiratory Exam: Clear to Ausculation Bilateral, NORMAL BREATHING PATTERN - Cardiovascular Exam Cardiovascular Exam: REGULAR RHYTHM, +S1 - GI/Abdominal Exam GI & Abdominal Exam: Soft. absent: Tenderness - Extremities Exam Extremities Exam: Normal Inspection. absent: Tenderness - Neurological Exam Neurological Exam: Altered - Skin Skin Exam: Dry, Warm Assessment and Plan (1) Acute renal insufficiency Status: Acute (2) Dehydration Status: Acute (3) Edson nephropathy Status: Acute (4) Syncope Status: Acute (5) Displaced fracture of distal end of left radius Status: Acute - Assessment and Plan (Free Text) Plan: continue PPN fluid rfehydration repeat chemistries
--- NOTE | 2017-11-18 16:15 | PN ---
DATE: SUBJECTIVE: The patient is very drowsy, with very poor p.o. intake, and has often periods of confusion. The patient has minimal verbal output when seen. Her last lithium level noted today is noted to be still elevated. Mansura is 1.2, her creatinine is 1.8 which has improved. BUN is 50. Random glucose is 172. The patient is off any psych meds for now, but 1.2 is still the toxic range as the patient's lithium is usually 0.5 and below. The patient was taking lithium 300 mg p.o. daily and has been on lithium for more than 40 years for making this treatment of a bipolar. For now, the patient is off lithium, but she is still toxic. She is also off her medication for dementia, which was Namenda. PHYSICAL EXAMINATION: VITAL SIGNS: Temperature is 97.5, pulse 70, blood pressure 116/69, respirations 20, oxygen saturation is 96% on room air. REVIEW OF SYSTEMS: GENERAL: The patient is drowsy, weak, with periods of confusion, speaks in a very soft voice, has very poor p.o. intake. SKIN: No diaphoresis. HEENT: No headache, no dizziness. NECK: Supple. RESPIRATORY: No dyspnea. CARDIOVASCULAR: No chest pain. GASTROINTESTINAL: Very poor p.o. intake. No nausea, no vomiting. EXTREMITIES: Still tremulous. MUSCULOSKELETAL: Feels weak. GENITOURINARY: No dysuria. NEUROLOGIC: Alert and still with periods of confusion. MENTAL STATUS EXAMINATION: Elderly female, who looks stated age. Oriented to person and place. Still has periods of confusion. Speaks in a very soft voice. Affect is restricted. Mood is dysphoric. Thought process, confused. Thought content, no overt paranoia, no hallucinations, no suicidal or homicidal ideation. Attention and memory seem to be limited. Insight and judgment limited. Impulse control is fair at this time. IMPRESSION: History of bipolar disorder mixed as well as possible delirium secondary to dehydration as well as lithium toxicity as well as history of dementia with mood changes as well as history of fractured left radius, status post open reduction and internal fixation. PLAN AND RECOMMENDATIONS: The patient is seen. Meds reviewed. Continue present management. Continue daily lithium level as well as to monitor renal function tests. If the patient's appetite continues to be very poor, I suggest we should not put the patient on lithium and use a different medication for bipolar. We will keep her off the dementia meds as dementia meds can worsen her appetite. For now, the patient is still very weak with periods of confusion and lethargic despite off psych meds. I encouraged the patient to eat as well as to continue IV fluids. The patient, however, now is on the regular floor. Solomon Montes MD
[2017-11-18] MEDS: PPN IV SCH (17:51)
[2017-11-18] MEDS ORDERED: PPN#2 IV SCH (18:00)
--- NOTE | 2017-11-18 20:36 | CARD ---
APPROVED REPORT EKG Measurement Heart [id number] AR [id number] <Conclusion> Normal sinus rhythm Right bundle branch block Abnormal ECG
--- NOTE | 2017-11-18 20:41 | CARD ---
APPROVED REPORT EKG Measurement Heart [id number] CO [id number] <Conclusion> Normal sinus rhythm Indeterminate axis Right bundle branch block Possible Inferior infarct, age undetermined Abnormal ECG
[2017-11-19] MEDS: Levothyroxine 50 MCG TAB PO SCH (06:00)
[2017-11-19 07:54] LABS: ALB/GLOB RATIO 1.1 (1.0-2.1); ALBUMIN 2.8 g/dL (3.5-5.0); CALCIUM 9.1 mg/dl (8.6-10.4)
--- NOTE | 2017-11-19 12:37 | PN ---
DATE: SUBJECTIVE: The patient is more alert and verbal today, still has very poor p.o. intake, but more conversant. She knows she is in the hospital. The patient is off psych meds. The patient's last lithium level is now 1, it has improved and creatinine is now 1.7. Her GFR is still 28. The patient is still forgetful, but no behavioral problems. PHYSICAL EXAMINATION: VITAL SIGNS: Temperature is 98.3, pulse 80, blood pressure 124/66, respirations 20, oxygen saturation is 98%. REVIEW OF SYSTEMS: GENERAL: The patient is alert, but still forgetful, seen in her room, more conversant today, not in acute respiratory distress. Not complaining of pain. SKIN: No diaphoresis. HEENT: No headache, no dizziness. NECK: Supple. RESPIRATORY: No dyspnea. CARDIOVASCULAR: No chest pain. GASTROINTESTINAL: No appetite and has poor p.o. intake. EXTREMITIES: The patient is complaining of pain in her left upper extremity. NEURO: Alert, but forgetful. GENITOURINARY: No dysuria. MENTAL STATUS EXAMINATION: Elderly female, who looks stated age. Oriented x2, place and person. Mood is brighter. Affect is restricted. Speech is spontaneous. Thought process, forgetful. Thought content, no overt psychosis. No suicidal or homicidal ideation. Attention and memory seem to be limited. Insight and judgment limited. Impulse control is fair at this time. IMPRESSION: History of delirium, metabolic encephalopathy secondary to lithium toxicity, secondary to dehydration as well as history of bipolar disorder and dementia. PLAN AND RECOMMENDATIONS: The patient is seen. Meds reviewed. Continue present management. Continue IV fluids. We will keep the patient off psych meds for now. The patient's p.o. intake is still poor. If lithium falls below 0.5 and the patient is eating more, she can return to [facility] for subacute rehab. For now, the patient is still not medically stable to go for subacute rehab and psych-mancuso she is also unstable. The lithium level of 1 is too high for the patient. Solomon Montes MD [facility] # [id number] MTDD
--- NOTE | 2017-11-19 13:22 | CP.PCM.PN ---
Subjective - Date & Time of Evaluation Date of Evaluation: 11/19/17 Time of Evaluation: 13:21 - Subjective Subjective: seen and examined unable to obtain history from pt due to ams labs noted meds noted Objective - Vital Signs/Intake and Output Vital Signs (last 24 hours): Temp Pulse Resp BP Pulse Ox 98.3 F 80 20 124/66 97 11/19/17 07:51 11/19/17 07:51 11/19/17 07:51 11/19/17 07:51 11/19/17 10:48 Intake and Output: 11/19/17 11/19/17 06:59 18:59 Intake Total 456 Balance 456 - Medications Medications: Current Medications Heparin Sodium (Porcine) (Heparin) 5,000 units SC Q12H [facility] Last Admin: 11/19/17 09:58 Dose: 5,000 units Insulin Human Regular 5 unit/Chromium/Copper/Manganese/Zinc 1 ml/ Multivitamins/ Vitamin C 10 ml/ Amino Acids 1,011.05 mls @ 42 mls/hr IV .Q24H [facility] Stop: 11/19/17 17:59 Last Admin: 11/18/17 18:36 Dose: 42 mls/hr Sodium Chloride (Sodium Chloride 0.45%) 500 mls @ 50 mls/hr IV .Q10H [facility] Last Admin: 11/19/17 08:40 Dose: 50 mls/hr Multivitamins/Vitamin C 10 ml/Chromium/Copper/Manganese/Seleni/Zn 1 ml/ Insulin Human Regular 5 unit/ Heparin Sodium (Porcine) 1,000 units/ Amino Acids/ Electrolytes/Dextrose 1,012.05 mls @ 42 mls/hr IV .Q24H [facility] Stop: 11/20/17 17:59 Levothyroxine Sodium (Synthroid) 50 mcg PO DAILY@0630 [facility] Last Admin: 11/19/17 06:00 Dose: 50 mcg - Labs Labs: 11/18/17 06:56 11/19/17 06:38 - Constitutional Appears: Non-toxic, No Acute Distress, Chronically Ill - Head Exam Head Exam: NORMAL INSPECTION, NORMOCEPHALIC - Eye Exam Eye Exam: Normal appearance, PERRL - ENT Exam ENT Exam: Mucous Membranes Dry, Normal Exam - Neck Exam Neck Exam: Normal Inspection - Respiratory Exam Respiratory Exam: Decreased Breath Sounds, NORMAL BREATHING PATTERN - Cardiovascular Exam Cardiovascular Exam: REGULAR RHYTHM, RRR - GI/Abdominal Exam GI & Abdominal Exam: Distended, Soft, Normal Bowel Sounds - Extremities Exam Extremities Exam: Normal Inspection (left arm in cast) Assessment and Plan (1) Acute renal insufficiency Status: Acute (2) Dehydration Status: Acute (3) Hypernatremia Status: Acute (4) Crossett nephropathy Status: Acute - Assessment and Plan (Free Text) Assessment: maintain hypotonic fluids daily labs
[2017-11-19] MEDS ORDERED: TPN IV SCH (18:00)
[2017-11-20] MEDS: Levothyroxine 50 MCG TAB PO SCH (05:58)
[2017-11-20 06:53] LABS: BASO % 0.3 % (0.0-2.0); EOS # 0.2 K/uL (0.0-0.7); EOS % 2.1 % (0.0-4.0); HEMOGLOBIN 11.8 g/dL (11.0-16.0); LYMPH # 1.3 K/uL (1.0-4.3); LYMPH % 14.1 % (20.0-40.0); MEAN CELL VOLUME 88.9 fL (81.0-99.0); MEAN CORPUSCULAR HEMOGLOBIN 29.9 pg (27.0-31.0); MEAN CORPUSCULAR HGB CONC 33.7 g/dL (33.0-37.0); MEAN PLATELET VOLUME 9.9 fL (7.2-11.7); MONO # 0.6 K/uL (0.0-0.8); NEUT # 7.2 K/uL (1.8-7.0); NEUT % 77.5 % (50.0-75.0); RBC 3.95 Mil/uL (3.80-5.20); WHITE BLOOD COUNT 9.3 K/uL (4.8-10.8)
[2017-11-20 07:12] LABS: ALB/GLOB RATIO 1.1 (1.0-2.1); ALBUMIN 2.9 g/dL (3.5-5.0); CALCIUM 9.1 mg/dl (8.6-10.4)
[2017-11-20] MEDS ORDERED: TPN#2 IV SCH (18:00)
--- NOTE | 2017-11-20 19:06 | PN ---
DATE: SUBJECTIVE: The patient is seen with her sister Kei. The patient's mental status seems to waxing and waning from being alert, being lethargic. Her p.o. intake is still very poor despite off meds for dementia. The patient is off psych meds for now since the patient is not exhibiting any psychiatric symptoms of emma, although the patient has history of bipolar disorder. She has been on Manzano for 40 years or more. LABORATORY DATA: Recent labs showed the patient's creatinine is still elevated at 1.7. Her GFR is still low at 28 and lithium level is now 0.7, this is still a little high for her. The patient denies having IV fluids. REVIEW OF SYSTEMS: GENERAL: The patient is still drowsy, seen in her room, refusing to eat, also forgetful. SKIN: No diaphoresis. HEENT: No headache. No dizziness. NECK: Supple. RESPIRATORY: No dyspnea. CARDIOVASCULAR: No chest pain. GASTROINTESTINAL: Very poor p.o. intake. No nausea, no vomiting. EXTREMITIES: No tremors, gait is steady. The patient is spending most of the time in bed. NEURO: Alert with periods of confusion. As stated, the patient's mental status seems to be waxing and waning. MENTAL STATUS EXAMINATION: Skinny looking female, who looks stated age, oriented x2. Mood is dysphoric. Affect is restricted. Speech is slow. Thought process, confused often. Thought content, no overt psychosis. No suicidal or homicidal ideation. Attention and memory seem to be limited. Insight and judgment limited. Impulse control is fair at this time. IMPRESSION: History of delirium, metabolic encephalopathy secondary to lithium toxicity secondary to severe dehydration as well as history of dementia, and bipolar disorder. PLAN AND RECOMMENDATIONS: The patient is seen, meds reviewed. Continue present management. The patient is still not medically stable to go back to subacute rehab. Continue treatment plan as outlined. The patient needs to eat more and also drink fluids. As discussed with his sister, I will not put her back on the lithium as well as the Namenda as the patient has very poor p.o. intake. We will just monitor her for now. Solomon Montes MD [facility] # [id number] MTDD
--- NOTE | 2017-11-21 00:51 | CP.PCM.PN ---
Subjective - Date & Time of Evaluation Date of Evaluation: 11/18/17 Time of Evaluation: 16:00 - Subjective Subjective: Patient is still very confused. Agitated. Anxious. Weakness noted. Decided for TPN Clinically stable. Continue the current IV hydration and will follow-up the patient Objective - Vital Signs/Intake and Output Vital Signs (last 24 hours): Temp Pulse Resp BP Pulse Ox 98.8 F 89 18 110/64 99 11/21/17 00:00 11/21/17 00:00 11/21/17 00:00 11/21/17 00:00 11/21/17 00:00 Intake and Output: 11/20/17 11/21/17 18:59 06:59 Intake Total 936 786 Balance 936 786 - Medications Medications: Current Medications Heparin Sodium (Porcine) (Heparin) 5,000 units SC Q12H [facility] Last Admin: 11/20/17 09:34 Dose: 5,000 units Sodium Chloride (Sodium Chloride 0.45%) 500 mls @ 50 mls/hr IV .Q10H [facility] Last Admin: 11/20/17 15:06 Dose: 50 mls/hr Multivitamins/Vitamin C 10 ml/Chromium/Copper/Manganese/Zinc 1 ml/ Insulin Human Regular 5 unit/ Heparin Sodium (Porcine) 1,000 units/ Amino Acids/ Electrolytes/Dextrose 1,012.05 mls @ 42 mls/hr IV .Q24H [facility] Stop: 11/21/17 17:59 Last Admin: 11/20/17 18:51 Dose: 42 mls/hr Levothyroxine Sodium (Synthroid) 50 mcg PO DAILY@0630 [facility] Last Admin: 11/20/17 05:58 Dose: 50 mcg - Labs Labs: 11/20/17 06:40 11/20/17 06:40
--- NOTE | 2017-11-21 00:53 | CP.PCM.PN ---
Subjective - Date & Time of Evaluation Date of Evaluation: 11/17/17 Time of Evaluation: 17:00 - Subjective Subjective: PICC line insertion Consent informed consent from the patient's next of kin The right-sided basilic vein was visualized. Sonogram used to Needle was inserted, under aseptic precautions. Double PICC line inserted at 43 cm length. Patient tolerated the procedure. Extremities there is clinical stable. The patient on TPN Objective - Vital Signs/Intake and Output Vital Signs (last 24 hours): Temp Pulse Resp BP Pulse Ox 98.8 F 89 18 110/64 99 11/21/17 00:00 11/21/17 00:00 11/21/17 00:00 11/21/17 00:00 11/21/17 00:00 Intake and Output: 11/20/17 11/21/17 18:59 06:59 Intake Total 936 786 Balance 936 786 - Medications Medications: Current Medications Heparin Sodium (Porcine) (Heparin) 5,000 units SC Q12H [facility] Last Admin: 11/20/17 09:34 Dose: 5,000 units Sodium Chloride (Sodium Chloride 0.45%) 500 mls @ 50 mls/hr IV .Q10H [facility] Last Admin: 11/20/17 15:06 Dose: 50 mls/hr Multivitamins/Vitamin C 10 ml/Chromium/Copper/Manganese/Zinc 1 ml/ Insulin Human Regular 5 unit/ Heparin Sodium (Porcine) 1,000 units/ Amino Acids/ Electrolytes/Dextrose 1,012.05 mls @ 42 mls/hr IV .Q24H [facility] Stop: 11/21/17 17:59 Last Admin: 11/20/17 18:51 Dose: 42 mls/hr Levothyroxine Sodium (Synthroid) 50 mcg PO DAILY@0630 [facility] Last Admin: 11/20/17 05:58 Dose: 50 mcg - Labs Labs: 11/20/17 06:40 11/20/17 06:40
--- NOTE | 2017-11-21 00:54 | CP.PCM.PN ---
Subjective - Date & Time of Evaluation Date of Evaluation: 11/19/17 Time of Evaluation: 17:00 - Subjective Subjective: Patient is feeling much improving Much hydrated now, on TPN. But somewhat agitated, anxious. Family at bedside. Spoke to the family Vital signs stable. Chest good air entry related to the hospital nontender abdomen no peripheral edema Currently on TPN. Chemistry revealed Nonspecific Will continue the current treatment Patient with severe dehydration, lithium toxicity, poor intake. [place] is on hold. Psychotic follow-up Objective - Vital Signs/Intake and Output Vital Signs (last 24 hours): Temp Pulse Resp BP Pulse Ox 98.8 F 89 18 110/64 99 11/21/17 00:00 11/21/17 00:00 11/21/17 00:00 11/21/17 00:00 11/21/17 00:00 Intake and Output: 11/20/17 11/21/17 18:59 06:59 Intake Total 936 786 Balance 936 786 - Medications Medications: Current Medications Heparin Sodium (Porcine) (Heparin) 5,000 units SC Q12H [facility] Last Admin: 11/20/17 09:34 Dose: 5,000 units Sodium Chloride (Sodium Chloride 0.45%) 500 mls @ 50 mls/hr IV .Q10H [facility] Last Admin: 11/20/17 15:06 Dose: 50 mls/hr Multivitamins/Vitamin C 10 ml/Chromium/Copper/Manganese/Zinc 1 ml/ Insulin Human Regular 5 unit/ Heparin Sodium (Porcine) 1,000 units/ Amino Acids/ Electrolytes/Dextrose 1,012.05 mls @ 42 mls/hr IV .Q24H [facility] Stop: 11/21/17 17:59 Last Admin: 11/20/17 18:51 Dose: 42 mls/hr Levothyroxine Sodium (Synthroid) 50 mcg PO DAILY@0630 [facility] Last Admin: 11/20/17 05:58 Dose: 50 mcg - Labs Labs: 11/20/17 06:40 11/20/17 06:40
--- NOTE | 2017-11-21 00:56 | CP.PCM.PN ---
Subjective - Date & Time of Evaluation Date of Evaluation: 11/20/17 Time of Evaluation: 18:00 - Subjective Subjective: Patient is more awake and responding, more stronger than before. Cough negative. TPN on No chest pain and cyanosis of breath. Able to move all 4 eczematous Vital signs stable, chest good air entry regular heart sound Assessment and recommendation: 87 female admitted to lithium toxicity. Currently stable. Severe dehydration. Supplementation and will follow the patient Objective - Vital Signs/Intake and Output Vital Signs (last 24 hours): Temp Pulse Resp BP Pulse Ox 98.8 F 89 18 110/64 99 11/21/17 00:00 11/21/17 00:00 11/21/17 00:00 11/21/17 00:00 11/21/17 00:00 Intake and Output: 11/20/17 11/21/17 18:59 06:59 Intake Total 936 786 Balance 936 786 - Medications Medications: Current Medications Heparin Sodium (Porcine) (Heparin) 5,000 units SC Q12H [facility] Last Admin: 11/20/17 09:34 Dose: 5,000 units Sodium Chloride (Sodium Chloride 0.45%) 500 mls @ 50 mls/hr IV .Q10H [facility] Last Admin: 11/20/17 15:06 Dose: 50 mls/hr Multivitamins/Vitamin C 10 ml/Chromium/Copper/Manganese/Zinc 1 ml/ Insulin Human Regular 5 unit/ Heparin Sodium (Porcine) 1,000 units/ Amino Acids/ Electrolytes/Dextrose 1,012.05 mls @ 42 mls/hr IV .Q24H [facility] Stop: 11/21/17 17:59 Last Admin: 11/20/17 18:51 Dose: 42 mls/hr Levothyroxine Sodium (Synthroid) 50 mcg PO DAILY@0630 [facility] Last Admin: 11/20/17 05:58 Dose: 50 mcg - Labs Labs: 11/20/17 06:40 11/20/17 06:40
[2017-11-21] MEDS: Levothyroxine 50 MCG TAB PO SCH (05:53)
[2017-11-21 06:52] LABS: BASO % 0.4 % (0.0-2.0); EOS # 0.3 K/uL (0.0-0.7); EOS % 3.3 % (0.0-4.0); HEMOGLOBIN 11.5 g/dL (11.0-16.0); LYMPH # 1.5 K/uL (1.0-4.3); LYMPH % 15.8 % (20.0-40.0); MEAN CELL VOLUME 89.4 fL (81.0-99.0); MEAN CORPUSCULAR HEMOGLOBIN 30.1 pg (27.0-31.0); MEAN CORPUSCULAR HGB CONC 33.6 g/dL (33.0-37.0); MEAN PLATELET VOLUME 8.8 fL (7.2-11.7); MONO # 0.7 K/uL (0.0-0.8); MONO % 6.9 % (0.0-10.0); NEUT # 7.1 K/uL (1.8-7.0); NEUT % 73.6 % (50.0-75.0); NRBC % 0.1 % (0.0-2.0); RBC 3.83 Mil/uL (3.80-5.20); RED CELL DISTRIBUTION WIDTH 14.1 % (11.5-14.5); WHITE BLOOD COUNT 9.7 K/uL (4.8-10.8)
[2017-11-21 07:27] LABS: ALB/GLOB RATIO 1.1 (1.0-2.1); ALBUMIN 2.9 g/dL (3.5-5.0); CALCIUM 9.2 mg/dl (8.6-10.4)
[2017-11-21 07:43] VITALS: RESP 20
[2017-11-21] MEDS ORDERED: TPN IV SCH (18:00)
--- NOTE | 2017-11-21 23:10 | CP.PCM.PN ---
Subjective - Date & Time of Evaluation Date of Evaluation: 11/21/17 Time of Evaluation: 21:43 - Subjective Subjective: pt is still on tpn eating slightly better unable to get tpn in rehab will contuinue for few more days before discharge to [facility] spoke to Kei pt daughter Objective - Vital Signs/Intake and Output Vital Signs (last 24 hours): Temp Pulse Resp BP Pulse Ox 97.8 F 86 20 119/73 98 11/21/17 16:00 11/21/17 16:00 11/21/17 16:00 11/21/17 16:00 11/21/17 16:00 Intake and Output: 11/21/17 11/22/17 18:59 06:59 Intake Total 1096 736 Balance 1096 736 - Medications Medications: Current Medications Heparin Sodium (Porcine) (Heparin) 5,000 units SC Q12H [facility] Last Admin: 11/21/17 21:10 Dose: 5,000 units Multivitamins/Vitamin C 10 ml/Chromium/Copper/Manganese/Zinc 1 ml/ Insulin Human Regular 5 unit/ Heparin Sodium (Porcine) 1,000 units/ Amino Acids/ Electrolytes/Dextrose 1,012.05 mls @ 42 mls/hr IV .Q24H [facility] Stop: 11/22/17 17:59 Last Admin: 11/21/17 18:35 Dose: 42 mls/hr Levothyroxine Sodium (Synthroid) 50 mcg PO DAILY@0630 [facility] Last Admin: 11/21/17 05:53 Dose: 50 mcg - Labs Labs: 11/21/17 06:41 11/21/17 06:41
--- NOTE | 2017-11-21 23:38 | PN ---
DATE: SUBJECTIVE: The patient was seen. The patient seems more alert and verbal, still has periods of confusion; p.o. intake is still poor. REVIEW OF LABS: TSH 2.80. Her creatinine is much improved now 1.5, lithium level is 0.6. The patient is off psych medications. The patient is starting to drink and eat more. PHYSICAL EXAMINATION: VITAL SIGNS: Temperature is 97.8, pulse is 86, blood pressure is 119/72, respirations 20, oxygen saturation 98%. REVIEW OF MEDICATIONS: The patient is on Synthroid. The patient on PPN, heparin. REVIEW OF SYSTEMS: GENERAL: The patient is more alert, verbal, still has poor p.o. intake, but more engageable, still forgetful. SKIN: No diaphoresis. HEENT: No headache or dizziness. NECK: Supple. RESPIRATORY: No dyspnea. CARDIOVASCULAR: No chest pain. GASTROINTESTINAL: Has very poor p.o. intake. No nausea, no vomiting. EXTREMITIES: Gait is unsteady. MUSCULOSKELETAL: Feels weak. NEURO: Alert with periods of forgetfulness, although her mental status is much better with improvement in the levels of the lithium as well as the creatinine level. MENTAL STATUS EXAMINATION: Skinny looking female, who looks stated age, still appears with confusion, oriented x2. Speaks at very soft voice. Affect is restricted. Mood is dysphoric. Thought process, less confused. Thought content, the patient want to go home. She is not complaining of pain in her left upper extremity as patient has a history of fracture of left wrist. As stated, no psychosis. No suicidal or homicidal ideation. Attention and memory seemed to be limited. Insight and judgement limited. Impulse control is fair at this time. IMPRESSION: History of delirium, metabolic encephalopathy secondary to lithium toxicity, secondary to dehydration, improving. PLAN AND RECOMMENDATION: The patient is seen. Meds reviewed. Continue PPN as ordered. Continue IV fluids. We will keep patient off psych medications. Once the patient is eating better, we will try to refer her back to [facility] for subacute rehab. Her p.o. intake is very poor at this time. Solomon Montes MD [facility] # [id number] MTDD
[2017-11-22] MEDS: Levothyroxine 50 MCG TAB PO SCH (06:37)
[2017-11-22 09:04] LABS: BASO # 0.1 K/uL (0.0-0.2); BASO % 0.7 % (0.0-2.0); EOS # 0.3 K/uL (0.0-0.7); EOS % 3.4 % (0.0-4.0); HEMOGLOBIN 11.2 g/dL (11.0-16.0); LYMPH # 1.5 K/uL (1.0-4.3); LYMPH % 18.7 % (20.0-40.0); MEAN CELL VOLUME 89.1 fL (81.0-99.0); MEAN CORPUSCULAR HEMOGLOBIN 29.8 pg (27.0-31.0); MEAN CORPUSCULAR HGB CONC 33.4 g/dL (33.0-37.0); MEAN PLATELET VOLUME 9.3 fL (7.2-11.7); MONO # 0.6 K/uL (0.0-0.8); MONO % 7.1 % (0.0-10.0); NEUT # 5.7 K/uL (1.8-7.0); NEUT % 70.1 % (50.0-75.0); RBC 3.75 Mil/uL (3.80-5.20); RED CELL DISTRIBUTION WIDTH 14.2 % (11.5-14.5); WHITE BLOOD COUNT 8.1 K/uL (4.8-10.8)
[2017-11-22 09:24] LABS: CALCIUM 9.1 mg/dl (8.6-10.4)
[2017-11-22] MEDS ORDERED: TPN IV ONE (18:00)
--- NOTE | 2017-11-22 19:25 | PN ---
DATE: SUBJECTIVE: The patient seen. The patient almost back to herself, more verbal, interactive, seen with her sister Margi. Review of her lithium is now 0.4 and her creatinine continues to improve, it is 1.4. The patient has been drinking and eating more, but still on TPN. The patient needs to be off TPN before going to the subacute rehab at [facility]. Still forgetful but doing much better. No tremors noted. VITAL SIGNS: Temperature is 98, pulse rate is 83, blood pressure 136/72, respirations 20, oxygen saturation is 100%. REVIEW OF SYSTEMS: GENERAL: The patient is alert, but still forgetful, seen in her room with her sister. She started to drink and eat more, still on TPN. SKIN: No diaphoresis. HEENT: No headache. No dizziness. NECK: Supple. RESPIRATORY: No dyspnea. CARDIOVASCULAR: No chest pain. GASTROINTESTINAL: The patient still has poor appetite. No nausea or vomiting, but seems to be making some efforts to eat more and drink fluids. EXTREMITIES: Gait is unsteady with tremors. MUSCULOSKELETAL: Feels weak. NEURO: Alert but with periods of forgetfulness. GENITOURINARY: No dysuria. MENTAL STATUS: The patient is much improved and almost close to her baseline. She is smiling better, more interactive. Skinny looking female who looks stated age, oriented to place and person, not to time. Mood is brighter. Affect is reactive. Speech is spontaneous. Thought process, forgetful. Thought content, the patient is preoccupied about going home. The patient states she wants to go to subacute rehab for reconditioning. Her gait is steady. No paranoia. No suicidal or homicidal ideation. Attention and memory seem to be limited. Insight and judgment limited. Impulse control is fair at this time. IMPRESSION: History of delirium, metabolic encephalopathy secondary to lithium toxicity secondary to dehydration, much improved, as well as history of dementia with mood changes. PLAN AND RECOMMENDATION: The patient is seen, meds reviewed. Continue present management. I discussed with the patient and her sister, I did suggest that the patient will not be given any more lithium as well as any medicines for dementia. She seems to be doing much better. She is forgetful, but the patient despite of lithium is not exhibiting any signs and symptoms of emma or depression. For now, we will just be more conservative with her management especially with her kidney problems and the patient has history of prior lithium toxicity in the past. Mood mancuso, she is doing much better. Solomon Montes MD MTDMaurizio
[2017-11-23] MEDS: Levothyroxine 50 MCG TAB PO SCH (05:50)
[2017-11-23 08:24] LABS: ALB/GLOB RATIO 1.1 (1.0-2.1); ALBUMIN 3.1 g/dL (3.5-5.0); CALCIUM 9.3 mg/dl (8.6-10.4)
--- NOTE | 2017-11-23 08:55 | RAD ---
PROCEDURE: BILATERAL WRIST RADIOGRAPHS HISTORY: fracture followup COMPARISON: Left wrist radiographs 10/31/2017. No prior right wrist radiographs for comparison. TECHNIQUE: Two views each as to been submitted for interpretation. FINDINGS: At the left side, distal left radial complex fracture again identified comminuted with cast obscuring fine bone and soft-tissue detail more so than prior study. Volar displacement of the major fracture fragment is in suggested though this appearance may be in part due to changes in positioning. This is most apparent in the lateral view of the left wrist, though frontal view also may indicate a shift of the major fracture fragment mildly laterally. No prominent callus formation appreciated. No definite dislocation apparent. No acute fracture dislocation seen involving the right wrist with diffuse osteopenia suggesting osteoporosis. degenerative changes manifest by articular cortical sclerosis and joint space narrowing primarily at the carpal metacarpal joints but also the radiocarpal joints. IMPRESSION: Cast obscures fine bony detail however there is suspected shift of the major fracture fragment at the distal left radius in the volar direction as well as laterally. Clinically correlate further. Moderate degenerative changes right wrist without fracture or dislocation apparent on acute basis.
[2017-11-23] MEDS ORDERED: TPN IV ONE (18:00)
--- NOTE | 2017-11-23 21:49 | PN ---
DATE: SUBJECTIVE: The patient is clinically much better. She is more alert, verbal, cooperating with a stand to be out of bed, but her p.o. intake is very poor, still on TPN. The patient has been drinking her supplements about 75%, but eating her regular meals about 25%. I told her she needs to eat more as the patient would not be a good candidate for subacute rehab if she is still on TPN and has very poor p.o. intake. The patient states she would try to eat. The patient being my patient for years has been very picky with her food. REVIEW OF SYSTEMS: GENERAL: The patient is sleepy, but arousable, seen in her room. Not in acute respiratory distress. She is now complaining of pain in her left upper extremity. SKIN: No diaphoresis. HEENT: No headache. No dizziness. NECK: Supple. RESPIRATORY: No dyspnea. CARDIOVASCULAR: Chest is intact. ABDOMEN: Has very poor appetite. Planning to eat more. She is on TPN. EXTREMITIES: The patient is complaining of pain in her left upper extremities. MUSCULOSKELETAL: Feels weak. NEUROLOGIC: Alert and verbal, but forgetful. PHYSICAL EXAMINATION: VITAL SIGNS: Temperature 98.4, pulse 85, blood pressure 115/63, respirations 20, oxygen saturation is 99%. MENTAL STATUS EXAMINATION: Skinny looking female who looks stated age about 5 feet and 10 inches, weighs 116 pounds. Mood is dysphoric. Affect is restrictive. Speech spontaneous. Thought process is forgetful. Thought content, no psychosis, no suicidal or homicidal ideation. Attention and memory seems to be limited. Insight and judgment limited. Impulse control is fair at this time. IMPRESSION: History of delirium, metabolic encephalopathy secondary to lithium toxicity secondary to severe dehydration as well as history of dementia with mood changes. PLAN AND RECOMMENDATIONS: Patient is seen, meds reviewed. Continue present management. Once the patient is medically cleared, she can go back to the subacute rehab at [facility] provided her appetite will improve and the patient will be off TPN. Solomon Montes MD MTDD
[2017-11-24] MEDS: Levothyroxine 50 MCG TAB PO SCH (06:02)
--- NOTE | 2017-11-24 12:33 | PN ---
DATE: SUBJECTIVE: The patient is seen for followup. The patient is back to her usual self of baseline, but still has very poor p.o. intake. The patient is still TPN. The patient states she is trying to eat. I will keep her off psych meds for now as patient's behavior is manageable, but the patient needs to eat and drink more. PHYSICAL EXAMINATION: VITAL SIGNS: Temperature 98.3, pulse 84, blood pressure 105/60, respirations 20, oxygen saturation 100%. REVIEW OF SYSTEMS: GENERAL: The patient is alert, verbal, still forgetful, seen in her room, not in any acute respiratory distress. She states that she is trying to drink and eat more. SKIN: No diaphoresis. HEENT: No headache. No dizziness. NECK: Supple. RESPIRATORY: No dyspnea. CARDIOVASCULAR: No chest pain. GASTROINTESTINAL: Has very poor p.o. intake. No nausea. No vomiting. No abdominal pain. EXTREMITIES: The patient has a cast in left upper extremity and was asking when it will be removed. MUSCULOSKELETAL: Feels weak. NEUROLOGIC: Alert, but forgetful. MENTAL STATUS EXAMINATION: Elderly female, who looks stated age, skinny looking. Affect is reactive. Mood is dysphoric. Speech spontaneous. The patient is oriented x2. Thought process forgetful. Thought content, the patient wants to leave the hospital. No psychosis. No suicidal or homicidal ideation. Attention and memory seem to be limited. Insight and judgment limited. Impulse control is fair at this time. IMPRESSION: History of delirium, metabolic encephalopathy secondary to lithium toxicity secondary to dehydration much improved as well as dementia with mood changes, history of fracture of the left radius. PLAN AND RECOMMENDATION: The patient is seen, meds reviewed. Continue present management. The patient is off psych meds. Continue TPN as ordered. Patient encourage to eat more and on caloric count. Once medically cleared, she can go to the subacute rehab to continue her therapy. Solomon Montes MD MTDD
[2017-11-24] MEDS ORDERED: TPN IV ONE (18:00)
[2017-11-25] MEDS: Levothyroxine 50 MCG TAB PO SCH (06:11)
[2017-11-25 10:56] LABS: BASO # 0.1 K/uL (0.0-0.2); BASO % 0.8 % (0.0-2.0); EOS # 0.3 K/uL (0.0-0.7); EOS % 2.8 % (0.0-4.0); HEMOGLOBIN 11.8 g/dL (11.0-16.0); LYMPH # 1.8 K/uL (1.0-4.3); MEAN CELL VOLUME 90.8 fL (81.0-99.0); MEAN CORPUSCULAR HEMOGLOBIN 29.6 pg (27.0-31.0); MEAN CORPUSCULAR HGB CONC 32.6 g/dL (33.0-37.0); MEAN PLATELET VOLUME 9.3 fL (7.2-11.7); MONO # 0.8 K/uL (0.0-0.8); MONO % 6.8 % (0.0-10.0); NEUT # 8.3 K/uL (1.8-7.0); NEUT % 73.6 % (50.0-75.0); RBC 3.98 Mil/uL (3.80-5.20); RED CELL DISTRIBUTION WIDTH 14.7 % (11.5-14.5); WHITE BLOOD COUNT 11.2 K/uL (4.8-10.8)
[2017-11-25 11:12] LABS: ALB/GLOB RATIO 1.1 (1.0-2.1); ALBUMIN 3.7 g/dL (3.5-5.0); CALCIUM 9.5 mg/dl (8.6-10.4)
--- NOTE | 2017-11-25 14:46 | PN ---
DATE: SUBJECTIVE: The patient is seen. The patient is back to her baseline. She was seen with sister, still forgetful, but more cooperative. The patient is off psych meds. The patient is ready to go for subacute rehab to [facility] once bed is available. Her p.o. intake is still poor, but the patient is usually very picky with her food. She is not a very good eater for years. PHYSICAL EXAMINATION: VITAL SIGNS: Temperature is 98.8, pulse rate is 88, blood pressure is 96/59, respirations 20, oxygen saturation is 97%. REVIEW OF SYSTEMS: GENERAL: The patient is alert, oriented x2, still forgetful, seen in her room, smiling, seen with sister. The patient has been cooperative with staff. SKIN: No diaphoresis. HEENT: No headache. No dizziness. NECK: Supple. RESPIRATORY: No dyspnea. CARDIOVASCULAR: No chest pain. GASTROINTESTINAL: The patient still has poor p.o. intake, but trying to drink more. She is trying to drink at least 2 Ensures a day. EXTREMITIES: Gait is still unsteady. MUSCULOSKELETAL: Feels weak. NEURO: Alert, verbal, still forgetful. GENITOURINARY: No dysuria. MENTAL STATUS EXAMINATION: An elderly female who looks stated age, oriented x2. Mood is much brighter. Affect is reactive. Speech is spontaneous. Thought process, forgetful. Thought content, the patient is amenable to go to [facility] for subacute rehab where she was there before. No psychosis. No suicidal or homicidal ideation. No changes in her mood despite off [place]. The patient has been on [place] for 45 years before this current episode of [place] toxicity. As stated, no suicidal or homicidal ideation. Attention and memory seem to be limited. Insight and judgment limited. Impulse control is fair at this time. IMPRESSION: History of delirium, secondary to lithium toxicity, secondary to dehydration, as well as history of bipolar, history of fall, fracture of the left radius. PLAN AND RECOMMENDATIONS: The patient is seen, meds reviewed. Continue present management. The patient is psychiatrically stable to go back to [facility] for subacute rehab. Continue treatment plan as outlined. As discussed with the patient and sister, I will not put her back on her psych meds for now. Solomon Montes MD [facility] # [id number]
--- NOTE | 2017-11-25 15:20 | CP.PCM.PN ---
Subjective - Date & Time of Evaluation Date of Evaluation: 11/25/17 Time of Evaluation: 15:18 - Subjective Subjective: Ortho f/u Dr. Guerin 87F 3 weeks s/p closed reduction of left distal radius fracture with long arm cast. She denies pain/numbness/tingling. Objective - Vital Signs/Intake and Output Vital Signs (last 24 hours): Temp Pulse Resp BP Pulse Ox 98.8 F 88 20 96/59 L 97 11/25/17 08:00 11/25/17 08:00 11/25/17 08:00 11/25/17 08:00 11/25/17 08:00 Intake and Output: 11/25/17 11/25/17 06:59 18:59 Intake Total 576 636 Balance 576 636 - Medications Medications: Current Medications Heparin Sodium (Porcine) (Heparin) 5,000 units SC Q12H [facility] Last Admin: 11/25/17 09:57 Dose: 5,000 units Insulin Human Regular 5 unit/Heparin Sodium (Porcine) 1,000 units/ Chromium/ Copper/Manganese/Zinc 1 ml/ Amino Acids/Electrolytes/Dextrose 1,002.05 mls @ 42 mls/hr IV .[id number] [facility] Stop: 11/25/17 17:51 Last Admin: 11/24/17 17:45 Dose: 42 mls/hr Insulin Human Regular 5 unit/Heparin Sodium (Porcine) 1,000 units/ Multivitamins /Vitamin C 10 ml/ Amino Acids/Electrolytes/Dextrose 1,011.05 mls @ 42 mls/hr IV .Q24H [facility] Stop: 11/26/17 17:59 Levothyroxine Sodium (Synthroid) 50 mcg PO DAILY@0630 [facility] Last Admin: 11/25/17 06:11 Dose: 50 mcg - Labs Labs: 11/25/17 10:51 11/25/17 10:51 - Extremities Exam Additional comments: LUE: cast in good repair. +ROM fingers/thumb, sensation intact to rad/ulnar/med nerve, no swelling to fingers. cap refill < 2 sec fingers warm Assessment and Plan (1) Displaced fracture of distal end of left radius Assessment & Plan: repeat imaging reviewed, only 2 views of left wrist but appears some shortening and dorsal displacement of fracture. Dr. Guerin notified, for review continue cast at this time elevation NWB LUE d/w Dr. Guerin, agrees with above Status: Acute Radiology Interpretation - Bindery Cutter Operator Bindery Cutter Operator:: Radiologist - Radiology Interpretation #2 Interpretation: Patient Name / ID : GILDARDO GONZALEZ / [id number] Exam Date : 11/23/2017 07:41:42 ( Approved ) Study Comment : Sex / Age : F / 87Y Creator : Manjit De Jesus MD Dictator : Manjit De Jesus MD Java [id number] Architect : Vending Attendant : Manjit De Jesus MD Approver2 : Report Date : 11/23/2017 08:48:57 My Comment : PROCEDURE: BILATERAL WRIST RADIOGRAPHS HISTORY: fracture followup COMPARISON: Left wrist radiographs 10/31/2017. No prior right wrist radiographs for comparison. TECHNIQUE: Two views each as to been submitted for interpretation. FINDINGS: At the left side, distal left radial complex fracture again identified comminuted with cast obscuring fine bone and soft-tissue detail more so than prior study. Volar displacement of the major fracture fragment is in suggested though this appearance may be in part due to changes in positioning. This is most apparent in the lateral view of the left wrist, though frontal view also may indicate a shift of the major fracture fragment mildly laterally. No prominent callus formation appreciated. No definite dislocation apparent. No acute fracture dislocation seen involving the right wrist with diffuse osteopenia suggesting osteoporosis. degenerative changes manifest by articular cortical sclerosis and joint space narrowing primarily at the carpal metacarpal joints but also the radiocarpal joints. IMPRESSION: Cast obscures fine bony detail however there is suspected shift of the major fracture fragment at the distal left radius in the volar direction as well as laterally. Clinically correlate further. Moderate degenerative changes right wrist without fracture or dislocation apparent on acute basis.
[2017-11-25] MEDS ORDERED: TPN#7 IV ONE (18:00)
--- NOTE | 2017-11-25 19:20 | CP.PCM.PN ---
Subjective - Date & Time of Evaluation Date of Evaluation: 11/25/17 Objective - Vital Signs/Intake and Output Vital Signs (last 24 hours): Temp Pulse Resp BP Pulse Ox 98.7 F 98 H 20 102/62 97 11/25/17 16:00 11/25/17 16:00 11/25/17 16:00 11/25/17 16:00 11/25/17 16:00 Intake and Output: 11/25/17 11/26/17 18:59 06:59 Intake Total 636 Balance 636 - Medications Medications: Current Medications Heparin Sodium (Porcine) (Heparin) 5,000 units SC Q12H [facility] Last Admin: 11/25/17 09:57 Dose: 5,000 units Insulin Human Regular 5 unit/Heparin Sodium (Porcine) 1,000 units/ Multivitamins /Vitamin C 10 ml/ Amino Acids/Electrolytes/Dextrose 1,011.05 mls @ 42 mls/hr IV .Q24H ONE Stop: 11/26/17 17:59 Last Admin: 11/25/17 18:21 Dose: 42 mls/hr Levothyroxine Sodium (Synthroid) 50 mcg PO DAILY@0630 [facility] Last Admin: 11/25/17 06:11 Dose: 50 mcg - Labs Labs: 11/25/17 10:51 11/25/17 10:51
[2017-11-26] MEDS: Levothyroxine 50 MCG TAB PO SCH (06:12)
[2017-11-26 08:35] VITALS: BP 116/80; PULSE 85; TEMP 98.1; O2SAT 95
--- NOTE | 2017-11-26 08:54 | CP.PCM.PN ---
Subjective - Date & Time of Evaluation Date of Evaluation: 11/26/17 Time of Evaluation: 08:51 - Subjective Subjective: Patient denies wrist pain. Denies numbness/tingling. Objective - Vital Signs/Intake and Output Vital Signs (last 24 hours): Temp Pulse Resp BP Pulse Ox 98.1 F 85 20 116/80 95 11/26/17 08:33 11/26/17 08:33 11/26/17 08:33 11/26/17 08:33 11/26/17 08:33 Intake and Output: 11/26/17 11/26/17 06:59 18:59 Intake Total 1022 Balance 1022 - Medications Medications: Current Medications Heparin Sodium (Porcine) (Heparin) 5,000 units SC Q12H [facility] Last Admin: 11/25/17 21:51 Dose: 5,000 units Insulin Human Regular 5 unit/Heparin Sodium (Porcine) 1,000 units/ Multivitamins /Vitamin C 10 ml/ Amino Acids/Electrolytes/Dextrose 1,011.05 mls @ 42 mls/hr IV .Q24H ONE Stop: 11/26/17 17:59 Last Admin: 11/25/17 18:21 Dose: 42 mls/hr Levothyroxine Sodium (Synthroid) 50 mcg PO DAILY@0630 [facility] Last Admin: 11/26/17 06:12 Dose: 50 mcg - Labs Labs: 11/25/17 10:51 11/25/17 10:51 - Extremities Exam Additional comments: NAVJOT: cast in good repair. +ROM fingers/thumb, sensation intact to rad/ulnar/med nerve, no swelling to fingers. cap refill < 2 sec fingers warm Assessment and Plan (1) Displaced fracture of distal end of left radius Assessment & Plan: repeat imaging reviewed, only 2 views of left wrist but appears some shortening and dorsal displacement of fracture. Dr. Guerin reviewed new imaging, states position is acceptable and that family deferred referral to hand specialist and refused surgery. elevation NWB KINGE d/w Dr. Guerin, agrees with above Status: Acute
--- NOTE | 2017-11-26 11:33 | RAD ---
HISTORY: cough COMPARISON: Portable chest 11/17/2017. FINDINGS: LUNGS: Right PICC not significantly changed in position. No airspace disease identified bilaterally. PLEURA: No significant pleural effusion identified, no pneumothorax apparent. CARDIOVASCULAR: Normal. OSSEOUS STRUCTURES: No significant abnormalities. VISUALIZED UPPER ABDOMEN: Normal. OTHER FINDINGS: None. IMPRESSION: No interval acute cardiopulmonary disease appreciated. Right PICC unchanged in position.
[2017-11-26 11:35] LABS: BASO # 0.1 K/uL (0.0-0.2); BASO % 0.7 % (0.0-2.0); EOS # 0.3 K/uL (0.0-0.7); EOS % 3.7 % (0.0-4.0); HEMOGLOBIN 10.8 g/dL (11.0-16.0); LYMPH # 1.2 K/uL (1.0-4.3); LYMPH % 13.1 % (20.0-40.0); MEAN CORPUSCULAR HEMOGLOBIN 29.9 pg (27.0-31.0); MEAN CORPUSCULAR HGB CONC 33.3 g/dL (33.0-37.0); MEAN PLATELET VOLUME 8.1 fL (7.2-11.7); MONO # 0.8 K/uL (0.0-0.8); MONO % 8.5 % (0.0-10.0); NEUT # 6.6 K/uL (1.8-7.0); RBC 3.59 Mil/uL (3.80-5.20); RED CELL DISTRIBUTION WIDTH 14.8 % (11.5-14.5)
[2017-11-26 12:01] LABS: ALB/GLOB RATIO 1.1 (1.0-2.1); ALBUMIN 3.5 g/dL (3.5-5.0); CALCIUM 9.4 mg/dl (8.6-10.4)
--- NOTE | 2017-11-26 13:11 | PN ---
SUBJECTIVE: The patient is seen, the patient at the baseline. Still has poor p.o. intake, but has agreed that she will take and drink 3 times of Ensure daily. The patient is medically cleared according to the nurse practitioner to go for subacute rehab to [facility]. Still forgetful. Psych mancuso, she is back to her baseline. OBJECTIVE: VITAL SIGNS: Temperature is 98.1, pulse 85, blood pressure 116/80, respirations 20, oxygen saturation is 95. REVIEW OF SYSTEMS: GENERAL: She is alert and oriented x3, but forgetful, seen in her room, smiling when seen. SKIN: No diaphoresis. HEENT: Headache. No dizziness NECK: Supple. RESPIRATORY: No dyspnea. CARDIOVASCULAR: No chest pain. GASTROINTESTINAL: Still has poor p.o. intake, but the patient is also being picky with her food. She has tried to drink and eat. EXTREMITIES: The patient still has mild pain in her left upper extremity. The patient has history of fracture of the left radius after a fall. MUSCULOSKELETAL: Still feels weak. NEUROLOGIC: Alert, oriented x3, but forgetful. MENTAL STATUS EXAMINATION: Elderly female who looks stated age, oriented x3. but forgetful. Speech is spontaneous. Affect is reactive. Mood is calm. Thought process, forgetful. Thought content, the patient is willing to go for subacute rehab. No psychosis. No suicidal or homicidal ideation. Attention and memory seem to be limited. Insight and judgment limited. Impulse control is fair at this time. IMPRESSION: History of delirium, metabolic encephalopathy secondary to lithium toxicity secondary to severe dehydration much improved, as well as history of bipolar disorder, stable. PLAN AND RECOMMENDATIONS: The patient was seen, meds reviewed. The patient is psychiatrically stable to go for subacute rehab to [facility]. We will keep the patient off psych meds for now. The patient may have Ensure 1 can 3 times a day with her meals as supplement. I will follow her there in the rehab as needed. Solomon Montes MD
--- NOTE | 2017-11-26 15:45 | CP.PCM.PN ---
Subjective - Date & Time of Evaluation Date of Evaluation: 11/26/17 Time of Evaluation: 11:00 - Subjective Subjective: awake, alert, follows commands, poor appetite, no acute distress. Objective - Vital Signs/Intake and Output Vital Signs (last 24 hours): Temp Pulse Resp BP Pulse Ox 98.1 F 85 20 116/80 95 11/26/17 08:33 11/26/17 08:33 11/26/17 08:33 11/26/17 08:33 11/26/17 08:33 Intake and Output: 11/26/17 11/26/17 06:59 18:59 Intake Total 1022 716 Balance 1022 716 - Medications Medications: Current Medications Docusate Sodium (Colace) 100 mg PO TID [facility] Last Admin: 11/26/17 14:01 Dose: Not Given Heparin Sodium (Porcine) (Heparin) 5,000 units SC Q12H [facility] Last Admin: 11/26/17 09:56 Dose: 5,000 units Insulin Human Regular 5 unit/Heparin Sodium (Porcine) 1,000 units/ Multivitamins /Vitamin C 10 ml/ Amino Acids/Electrolytes/Dextrose 1,011.05 mls @ 42 mls/hr IV .Q24H ONE Stop: 11/26/17 17:59 Last Admin: 11/25/17 18:21 Dose: 42 mls/hr Levothyroxine Sodium (Synthroid) 50 mcg PO DAILY@0630 [facility] Last Admin: 11/26/17 06:12 Dose: 50 mcg - Labs Labs: 11/26/17 11:23 11/26/17 11:23 Assessment and Plan - Assessment and Plan (Free Text) Assessment: 87 year old female admitted with lithium toxicity to the ICU then to this floor , seen and examined. Awake alert poor eating. Ensure drinking two-three times a day. Discussed with DR Rosales, plan to discharge to [facility], advised to encourage small frequent meals including ensure plus and to follow up with dietitian over there. Also to consult with DR Dr Reed for any psyche meds. Family verbalized understanding.
== END 2017-11-26 16:47 | DRG 92 ==
LOC: C.ER 14:34 → C.9E 16:54 → C.6T 17:50 → C.9I 20:56 → C.3T 11-18 03:29
PROVIDERS: ADMIT Internal Medicine; ATTEND Internal Medicine
PROC: 02HV33Z Insertion of Infusion Device into Superior Vena Cava, Percutaneous Approach (ICD-10-PCS; principal; 2017-11-17)
PROC: 3E0436Z Introduction of Nutritional Substance into Central Vein, Percutaneous Approach (ICD-10-PCS; 2017-11-17)
DX: G92 Toxic encephalopathy (principal); S52.502A Unspecified fracture of the lower end of left radius, initial encounter for closed fracture; E23.2 Diabetes insipidus; F31.60 Bipolar disorder, current episode mixed, unspecified; N17.9 Acute kidney failure, unspecified; N39.0 Urinary tract infection, site not specified; T43.595A Adverse effect of other antipsychotics and neuroleptics, initial encounter; E03.9 Hypothyroidism, unspecified; E78.00 Pure hypercholesterolemia, unspecified; E86.0 Dehydration; F03.90 Unspecified dementia, unspecified severity, without behavioral disturbance, psychotic disturbance, mood disturbance, and anxiety; I10 Essential (primary) hypertension; L30.9 Dermatitis, unspecified; R13.10 Dysphagia, unspecified; R29.6 Repeated falls; F41.9 Anxiety disorder, unspecified; N14.1 Nephropathy induced by other drugs, medicaments and biological substances

== ENCOUNTER 2018-04-19 03:27 | Emergency (ER) | payer MEDICARE, BC ==
--- NOTE | 2018-04-19 03:37 | C.PDOC ---
History Of Present Illness Patient sent in from group home after patient slipped and hit her head while going to the bathroom tonight. Denies nausea, vomiting, LOC, or vision change. - HPI Time Seen by Provider: 04/19/18 03:36 Chief Complaint (Nursing): Trauma History Per: Patient History/Exam Limitations: no limitations Onset/Duration Of Symptoms: Hrs Injury Occurred (Timing): Just Before Arrival Recent travel outside of the [place]: No Past Medical History Reviewed: Historical Data, Nursing Documentation, Vital Signs Vital Signs: Last Vital Signs Temp 97.2 F L 04/19/18 03:35 Pulse 83 04/19/18 03:35 Resp 14 04/19/18 03:35 BP 104/56 L 04/19/18 03:35 Pulse Ox 98 04/19/18 03:35 - Medical History PMH: Anxiety, Bipolar Disorder, Depression, HTN, Hypercholesterolemia, Hyperlipidemia, Hypothyroidism Denies: Diabetes, Hepatitis, HIV, Chronic Kidney Disease, Seizures, Sexually Transmitted Disease - [facility] Procedures GROUP PSYCHOTHERAPY (12/24/17) IMMOBILIZATION OF LEFT LOWER ARM USING BRACE (12/24/17) INDIVIDUAL PSYCHOTHERAPY, BEHAVIORAL (12/24/17) INSERTION OF INFUSION DEV INTO SUP VENA CAVA, PERC APPROACH (11/15/17) INTRODUCTION OF NUTRITIONAL INTO CENTRAL VEIN, PERC APPROACH (11/15/17) REMOVAL OF CAST ON LEFT LOWER ARM (12/24/17) REPOSITION LEFT CARPAL, EXTERNAL APPROACH (11/02/17) REPOSITION LEFT RADIUS, EXTERNAL APPROACH (11/02/17) Family History: States: No Known Family Hx - Social History Hx Alcohol Use: No Hx Substance Use: No - Immunization History Hx Tetanus Toxoid Vaccination: No Hx Influenza Vaccination: No Hx Pneumococcal Vaccination: No Review Of Systems Constitutional: Negative for: Fever, Chills Eyes: Negative for: Vision Change Cardiovascular: Negative for: Chest Pain, Palpitations Respiratory: Negative for: Cough, Shortness of Breath Gastrointestinal: Negative for: Nausea, Vomiting Musculoskeletal: Negative for: Neck Pain Skin: Positive for: Other (Laceration) Neurological: Negative for: Other (LOC) Physical Exam - Physical Exam Appears: Non-toxic Skin: Warm, Dry Head: Normacephalic, Laceration (4 cm angular flap to occipital area with some ecchymosis and swelling) Eye(s): bilateral: Normal Inspection, PERRL, EOMI Oral Mucosa: Moist Neck: Trachea Midline, Supple Chest: Symmetrical, No Tenderness Cardiovascular: Rhythm Regular Respiratory: No Rales, No Rhonchi, No Wheezing Gastrointestinal/Abdominal: Soft, No Tenderness Extremity: Other (Moves all extremities) Neurological/Psych: Other (Awake, alert, orientedx2) ED Course And Treatment Progress Note: CT head ordered. Laceration - Laceration Repair scalp Wound Length (In cm): 4 Description Of Wound: Irregular Wound Cleansed With: Betadine Anesthesia: Lidocaine 1%, With Epi Wound Closure: [place] (#10) Wound Complexity: Simple Disposition Counseled Patient/Family Regarding: Studies Performed, Diagnosis, Need For Followup - Disposition Referrals: Jose Alejandro Sanches MD [Staff Provider] - Disposition: HOME/ ROUTINE Disposition Time: 03:37 Condition: FAIR Additional Instructions: Please have javier removed in 7 days Instructions: Laceration Repair With Javier (DC) Forms: [facility] (Liberian) - Clinical Impression Clinical Impression: Laceration of scalp - Scribe Statement The provider has reviewed the documentation as recorded by the Scribe Jefry Marley All medical record entries made by the Scribe were at my direction and personally dictated by me. I have reviewed the chart and agree that the record accurately reflects my personal performance of the history, physical exam, medical decision making, and the department course for this patient. I have also personally directed, reviewed, and agree with the discharge instructions and disposition.
[2018-04-19 03:39] VITALS: BMI 17.2
[2018-04-19 03:50] VITALS: TEMP 97.2
[2018-04-19 09:08] VITALS: BP 120/62; PULSE 91; RESP 17; O2SAT 96
--- NOTE | 2018-04-19 10:25 | CT ---
Date of service: 04/19/2018 PROCEDURE: CT HEAD WITHOUT CONTRAST. HISTORY: fall COMPARISON: CT head dated 11/15/2017. TECHNIQUE: Axial computed tomography images were obtained through the head/brain without intravenous contrast. Radiation dose: Total exam DLP = 884.1 mGy-cm. This CT exam was performed using one or more of the following dose reduction techniques: Automated exposure control, adjustment of the mA and/or kV according to patient size, and/or use of iterative reconstruction technique. FINDINGS: HEMORRHAGE: Very thin subdural hematoma along the left temporoparietal convexity. BRAIN: No mass effect or edema. Atrophy. Chronic microvascular ischemic changes. VENTRICLES: Prominent. No hydrocephalus. CALVARIUM: Unremarkable. PARANASAL SINUSES: Unremarkable as visualized. No significant inflammatory changes. MASTOID AIR CELLS: Unremarkable as visualized. No inflammatory changes. OTHER FINDINGS: Left parietal scalp swelling. IMPRESSION: Very thin subdural hematoma along the left temporoparietal convexity. This finding was not reported by [facility]. ER notification submitted electronically.
== END 2018-04-19 09:08 | disposition home or self-care (01) ==
LOC: C.ER 03:27
DX: S01.01XA Laceration without foreign body of scalp, initial encounter (principal); W01.0XXA Fall on same level from slipping, tripping and stumbling without subsequent striking against object, initial encounter; I10 Essential (primary) hypertension; E78.00 Pure hypercholesterolemia, unspecified; E03.9 Hypothyroidism, unspecified

== ENCOUNTER 2018-04-19 22:50 | Emergency (ER) | payer MEDICARE, BC ==
[2018-04-19 22:52] VITALS: BMI 17.2
--- NOTE | 2018-04-19 22:56 | C.PDOC ---
History Of Present Illness 88 year old female presents to the ED for a repeat of CT scan. Patient was seen yesterday in the ED for a fall and laceration to the occipital area. Laceration was sutured with javier. Initial CT scan was negative. Upon re-read of scan, small subdural hematoma was identified. Patient was called in for a repeat of CT scan. Time Seen by Provider: 04/19/18 22:55 History Per: Patient History/Exam Limitations: no limitations Onset/Duration Of Symptoms: Hrs Reports Recently: Seen In ED Past Medical History Reviewed: Historical Data, Nursing Documentation, Vital Signs Vital Signs: Last Vital Signs Temp 98.3 F 04/19/18 22:58 Pulse 76 04/19/18 22:58 Resp 18 04/19/18 22:58 BP 147/69 04/19/18 22:58 Pulse Ox 99 04/20/18 01:53 - Medical History PMH: Anxiety, Bipolar Disorder, Dementia, Depression, HTN, Hypercholesterolemia , Hyperlipidemia, Hypothyroidism Denies: Diabetes, Hepatitis, HIV, Chronic Kidney Disease, Seizures, Sexually Transmitted Disease Other Surgeries: Hx of surgeries - [facility] Procedures GROUP PSYCHOTHERAPY (12/24/17) IMMOBILIZATION OF LEFT LOWER ARM USING BRACE (12/24/17) INDIVIDUAL PSYCHOTHERAPY, BEHAVIORAL (12/24/17) INSERTION OF INFUSION DEV INTO SUP VENA CAVA, PERC APPROACH (11/15/17) INTRODUCTION OF NUTRITIONAL INTO CENTRAL VEIN, PERC APPROACH (11/15/17) REMOVAL OF CAST ON LEFT LOWER ARM (12/24/17) REPOSITION LEFT CARPAL, EXTERNAL APPROACH (11/02/17) REPOSITION LEFT RADIUS, EXTERNAL APPROACH (11/02/17) Family History: States: No Known Family Hx - Social History Hx Alcohol Use: No Hx Substance Use: No - Immunization History Hx Tetanus Toxoid Vaccination: No Hx Influenza Vaccination: No Hx Pneumococcal Vaccination: No Physical Exam - Physical Exam Appears: Non-toxic, Other (Pleasant, cooperative ) Skin: Warm, Dry Head: Normacephalic, Other (Stapled wound clean and dry ) Nose: Normal Oral Mucosa: Moist Neck: Normal ROM Chest: Symmetrical Cardiovascular: Rhythm Regular Respiratory: No Rales, No Rhonchi, No Wheezing Gastrointestinal/Abdominal: Soft, No Tenderness Neurological/Psych: No Oriented x3 (oriented x2. ), Other (Awake, alert, oriented, nonfocal. No new neurological deficits ) ED Course And Treatment O2 Sat by Pulse Oximetry: 99 (RA) Pulse Ox Interpretation: Normal - CT Scan/US CT Head Other Rad Studies (CT/US): Read By Radiologist, Radiology Report Reviewed CT/US Interpretation: EXAM: CT Head Without Intravenous Contrast. CLINICAL HISTORY: 88 years old, female; Pain; Headache and other: Open back of the head; . Patient HX: 11-15-17; Additional info: Fall. TECHNIQUE: Axial computed tomography images of the head/brain without intravenous contrast. All CT scans at this facility use at least one of these dose optimization techniques: automated. exposure control; mA and/or kV adjustment per patient size ( includes targeted exams where dose is. matched to clinical indication); or iterative reconstruction. COMPARISON: No relevant prior studies available. FINDINGS: Brain: Cerebral and cerebellar atrophy. Small vessel ischemic/ degenerative changes. Physiologic basal ganglia calcifications. No hemorrhage. Ventricles: Unremarkable. No ventriculomegaly. Bones/joints: Unremarkable. No acute fracture. Soft tissues: Unremarkable. Vasculature: Intracranial arterial calcifications. Sinuses: Unremarkable as visualized. No acute sinusitis. Mastoid air cells: Unremarkable as visualized. No mastoid effusion. IMPRESSION: 1. Cerebral and cerebellar atrophy. 2. Small vessel ischemic/degenerative changes. Thank you for allowing us to participate in the care of your patient. Dictated and Authenticated by: Hank Stiles MD. 2017 5:23 AM Eastern Time ([place] & [place]) Medical Decision Making Medical Decision Making: Orders: - CT Head Patient has no neurological deficits. repeat head CT , shows patient has a stable tiny subdural hematoma. Unchanged from previous CT head from 04/19. Disposition Counseled Patient/Family Regarding: Studies Performed, Diagnosis, Need For Followup - Disposition Referrals: Jose Alejandro Sanches MD [Staff Provider] - Disposition: HOME/ ROUTINE Disposition Time: 22:56 Condition: FAIR Additional Instructions: Please return if change in her baseline behavior occurs, or excessive nausea, vomiting Instructions: Contusion (DC), Minor Head Injury (DC), Subdural Hematoma (DC) - Clinical Impression Clinical Impression: Minor head injury without loss of consciousness, Subdural hematoma, post- traumatic - Scribe Statement The provider has reviewed the documentation as recorded by the Scribe Amena Forbes All medical record entries made by the Scribe were at my direction and personally dictated by me. I have reviewed the chart and agree that the record accurately reflects my personal performance of the history, physical exam, medical decision making, and the department course for this patient. I have also personally directed, reviewed, and agree with the discharge instructions and disposition.
[2018-04-19 23:02] VITALS: RESP 18; TEMP 98.3
[2018-04-20 03:01] VITALS: BP 154/85; PULSE 68; O2SAT 98
--- NOTE | 2018-04-20 09:59 | CT ---
Date of service: 04/20/2018 PROCEDURE: CT HEAD WITHOUT CONTRAST. HISTORY: hx of small subdural temporaparietal areayesterday COMPARISON: CT head dated 04/19/2018. TECHNIQUE: Axial computed tomography images were obtained through the head/brain without intravenous contrast. Radiation dose: Total exam DLP = 800.1 mGy-cm. This CT exam was performed using one or more of the following dose reduction techniques: Automated exposure control, adjustment of the mA and/or kV according to patient size, and/or use of iterative reconstruction technique. FINDINGS: HEMORRHAGE: Interval mild evolution of very thin subdural hematoma along the left temporoparietal convexity. BRAIN: No mass effect or edema. Atrophy. Chronic microvascular ischemic changes. VENTRICLES: Prominent. No hydrocephalus. CALVARIUM: Unremarkable. PARANASAL SINUSES: Unremarkable as visualized. No significant inflammatory changes. MASTOID AIR CELLS: Unremarkable as visualized. No inflammatory changes. OTHER FINDINGS: None. IMPRESSION: Interval mild evolution of very thin subdural hematoma along the left temporoparietal convexity.
== END 2018-04-20 03:00 | disposition home or self-care (01) ==
LOC: C.ER 22:50
DX: S06.5X0A Traumatic subdural hemorrhage without loss of consciousness, initial encounter (principal); X58.XXXA Exposure to other specified factors, initial encounter; I10 Essential (primary) hypertension; E78.00 Pure hypercholesterolemia, unspecified; E03.9 Hypothyroidism, unspecified; E78.5 Hyperlipidemia, unspecified

== ENCOUNTER 2018-06-03 04:46 | Inpatient (IN) | payer MEDICARE, BC ==
--- NOTE | 2018-06-03 04:54 | C.PDOC ---
History Of Present Illness Patient sent in from alf stating she does not feel well, but offers no particular complaint. Patient is somewhat confused, she has a Hx of dementia. Denies pain, fever, chills, nausea, or vomiting. Time Seen by Provider: 06/03/18 04:53 Chief Complaint (Nursing): Weakness/Neurological Deficit History Per: Patient, Other (jail) History/Exam Limitations: no limitations Onset/Duration Of Symptoms: Hrs Current Symptoms Are (Timing): Still Present Seizure Or Post-ictal Symptoms: None Possible Causative Factor(s): Other (Not known) Fall Associated With With Symptoms: No Severity: Moderate Pain Scale Rating Of: 4 Recent travel outside of the [place]: No - Symptoms Of CVA Associated Symptoms: denies: Impaired Speech, Seizure Activity, New Vision Deficit(Left), New Vision Deficit(Right), Decreased Ability To Walk, New Confusion Past Medical History Reviewed: Historical Data, Nursing Documentation, Vital Signs - Medical History PMH: Anxiety, Bipolar Disorder, Dementia, Depression, HTN, Hypercholesterolemia, Hyperlipidemia, Hypothyroidism Denies: Diabetes, Hepatitis, HIV, Chronic Kidney Disease, Seizures, Sexually Transmitted Disease - [facility] Procedures GROUP PSYCHOTHERAPY (12/24/17) IMMOBILIZATION OF LEFT LOWER ARM USING BRACE (12/24/17) INDIVIDUAL PSYCHOTHERAPY, BEHAVIORAL (12/24/17) INSERTION OF INFUSION DEV INTO SUP VENA CAVA, PERC APPROACH (11/15/17) INTRODUCTION OF NUTRITIONAL INTO CENTRAL VEIN, PERC APPROACH (11/15/17) REMOVAL OF CAST ON LEFT LOWER ARM (12/24/17) REPOSITION LEFT CARPAL, EXTERNAL APPROACH (11/02/17) REPOSITION LEFT RADIUS, EXTERNAL APPROACH (11/02/17) Family History: States: No Known Family Hx - Social History Hx Alcohol Use: No Hx Substance Use: No - Immunization History Hx Tetanus Toxoid Vaccination: No Hx Influenza Vaccination: No Hx Pneumococcal Vaccination: No Review Of Systems Constitutional: Positive for: Other (Not feeling well). Negative for: Fever, Chills Eyes: Negative for: Vision Change ENT: Negative for: Throat Pain Cardiovascular: Negative for: Chest Pain, Palpitations Respiratory: Negative for: Cough, Shortness of Breath Gastrointestinal: Negative for: Nausea, Vomiting Genitourinary: Negative for: Dysuria Musculoskeletal: Negative for: Back Pain Skin: Negative for: Rash Neurological: Positive for: Weakness, Confusion (Somewhat) Psych: Negative for: Anxiety Physical Exam - Physical Exam Appears: Non-toxic Skin: Warm, Dry Head: Normacephalic Eye(s): bilateral: Normal Inspection Oral Mucosa: Moist Neck: Trachea Midline, Supple Chest: Symmetrical, No Tenderness Cardiovascular: Rhythm Regular Respiratory: No Rales, No Rhonchi, No Wheezing Gastrointestinal/Abdominal: Soft, No Tenderness Back: Normal Inspection Extremity: No Tenderness, Other (Moves all extremities) Extremity: Bilateral: Atraumatic Pulses: Left Dorsalis Pedis: Normal, Right Dorsalis Pedis: Normal Neurological/Psych: Other (Oriented x2) Gait: Unable To Assess ED Course And Treatment - Laboratory Results Result Diagrams: 06/03/18 05:28 06/03/18 05:28 ECG: Interpreted By Me, Viewed By Me ECG Rhythm: Sinus Rhythm (96), Nonspecific Changes O2 Sat by Pulse Oximetry: 92 Pulse Ox Interpretation: Normal - Radiology CXR: Interpreted by Me, Viewed By Me CXR Interpretation: Yes: Infiltrates (rll). No: Fracture, Pnemothorax Progress Note: Blood work, CXR, EKG, flu swab, and urinalysis ordered. Disposition Discussed With : Noe Rosales Comment: accepted the pt on his service and took over the care at 6:12AM Doctor Will See Patient In The: Hospital Counseled Patient/Family Regarding: Studies Performed, Diagnosis - Disposition Referrals: Jose Alejandro Sanches MD [Primary Care Provider] - Disposition: HOSPITALIZED Disposition Time: 04:53 Condition: FAIR Forms: [facility] (Nepali) - POA Present On Arrival: Poor Glycemic Control - Clinical Impression Clinical Impression: Pneumonia, Malaise and fatigue - Scribe Statement The provider has reviewed the documentation as recorded by the Scribcolton Marley All medical record entries made by the Scribe were at my direction and personally dictated by me. I have reviewed the chart and agree that the record accurately reflects my personal performance of the history, physical exam, medical decision making, and the department course for this patient. I have also personally directed, reviewed, and agree with the discharge instructions and disposition.
[2018-06-03 04:55] VITALS: BMI 24.0
[2018-06-03 05:32] LABS: VENOUS BLOOD GAS BASE EXCESS -0.7 mmol/L (0.0-2.0); VENOUS BLOOD GAS PCO2 40 mmHg (40-60); VENOUS BLOOD GAS PO2 29 mm/Hg (30-55); VENOUS BLOOD PH 7.39 (7.32-7.43)
[2018-06-03 05:37] LABS: BASO % 0.1 % (0.0-2.0); EOS % 0.2 % (0.0-4.0); HEMOGLOBIN 11.9 g/dL (11.0-16.0); LYMPH # 0.4 K/uL (1.0-4.3); LYMPH % 2.8 % (20.0-40.0); MEAN CELL VOLUME 91.9 fL (81.0-99.0); MEAN CORPUSCULAR HEMOGLOBIN 30.3 pg (27.0-31.0); MEAN CORPUSCULAR HGB CONC 32.9 g/dL (33.0-37.0); MEAN PLATELET VOLUME 8.3 fL (7.2-11.7); MONO # 0.8 K/uL (0.0-0.8); MONO % 5.3 % (0.0-10.0); NEUT # 13.3 K/uL (1.8-7.0); NEUT % 91.6 % (50.0-75.0); NRBC % 0.1 % (0.0-2.0); PLATELET COUNT 125 K/uL (130-400); RBC 3.92 Mil/uL (3.80-5.20); RED CELL DISTRIBUTION WIDTH 14.6 % (11.5-14.5); WHITE BLOOD COUNT 14.5 K/uL (4.8-10.8)
[2018-06-03 05:38] LABS: INR 1.1; PROTHROMBIN TIME 12.1 SECONDS (9.7-12.2)
[2018-06-03] MEDS ORDERED: Piperacillin/Tazobact 3.375 gm 100 ML IVPB STA (06:00)
[2018-06-03] MEDS ORDERED: Vancomycin 1 GM 1 GM/250 ML BAG IVPB SCH (06:00)
[2018-06-03] MEDS ORDERED: Vancomycin 1 GM 1 GM/250 ML BAG IVPB ONE ×2 (06:02→06:28)
[2018-06-03] MEDS ORDERED: Piperacillin/Tazobact 3.375 gm 100 ML IVPB ONE (06:06)
[2018-06-03 06:09] LABS: ALB/GLOB RATIO 1.2 (1.0-2.1); ALBUMIN 3.6 g/dL (3.5-5.0)
[2018-06-03] MEDS ORDERED: Sodium Chloride 0.9% 1,000 ML IV ONE (06:13)
[2018-06-03] MEDS ORDERED: Sodium Chloride 0.9% 1,000 ML ONE (06:17)
[2018-06-03 07:32] LABS: BANDS 24 % (0-2); LYMPHOCYTE 2 % (20-40); MONOCYTE 8 % (0-10); NEUTROPHIL 66 % (50-75); PLATELET ESTIMATE NORMAL (NORMAL); TOTAL CELLS COUNTED 100
[2018-06-03] MEDS ORDERED: Ergocalciferol 50,000 Intl Units Cap PO SCH (10:00)
--- NOTE | 2018-06-03 10:44 | RAD ---
Date of service: 06/03/2018 PROCEDURE: CHEST RADIOGRAPH, 1 VIEW HISTORY: SOB COMPARISON: 11/26/2017 FINDINGS: LUNGS: Current lung volumes less now than before. Pulmonary vasculature crowded/accentuated. Interval rounded opacities perceived both medial bases and possibly left lateral mid to lower lung zone. Confluent prominent pulmonary vascular markings regarding the more medial opacities (versus infiltrates) considerations. PLEURA: No pneumothorax interval small left pleural effusion with or without interval minimal pleural thickening. CARDIOVASCULAR: Normal heart size. There is presence of aortic atherosclerotic calcification on x-ray. Prior right PICC line removed. Pulmonary vasculature crowded/accentuate shallow lung volumes limits assessment OSSEOUS STRUCTURES: No significant abnormalities. VISUALIZED UPPER ABDOMEN: Normal. OTHER FINDINGS: None. IMPRESSION: Bibasilar patchy opacities compatible with possible infiltrates-correlate clinically. Mild pulmonary venous congestion possible-accentuated due to crowding also possible. Interval small left pleural effusion.
[2018-06-03] MEDS: Divalproex 125 mg Sprinkle Capsule PO SCH ×2 (11:58→17:27)
[2018-06-03] MEDS: Multiple Vitamins Oral Solution PO SCH (11:59)
[2018-06-03] MEDS: Piperacill/Tazo 2.25gm in Dex 2.25 GM/50 ML BAG IVPB SCH ×2 (12:00→18:45)
[2018-06-03] MEDS ORDERED: Sodium Chloride 0.9% 1,000 ML IV SCH (18:15)
[2018-06-03] MEDS: Sodium Chloride 0.9% 1,000 ML IV SCH (18:54)
[2018-06-03 19:05] LABS: ABG ALLEN TEST POS; ARTERIAL BLOOD GAS HCO3 24.8 mmol/L (21-28); ARTERIAL BLOOD GAS O2 SAT 98.5 % (95-98); ARTERIAL BLOOD GAS PCO2 29 mm/Hg (35-45); ARTERIAL BLOOD GAS PH 7.49 (7.35-7.45); ARTERIAL BLOOD GAS PO2 100 mm/Hg (80-100)
--- NOTE | 2018-06-03 19:25 | CP.PCM.PN ---
<ClarissaSakina Y - Last Filed: 06/03/18 19:21> Subjective - Date & Time of Evaluation Date of Evaluation: 06/03/18 Time of Evaluation: 18:46 - Subjective Subjective: Code Sepsis called at 1846 by DAVID Stone per Dr. Beverly for fever s/p rectal Tylenol and elevated WBC with 24% bands. Blood culture positive for gram negative rods. Objective - Vital Signs/Intake and Output Vital Signs (last 24 hours): Temp Pulse Resp BP Pulse Ox 101.5 F H 123 H 20 101/59 L 95 06/03/18 18:44 06/03/18 15:00 06/03/18 15:00 06/03/18 15:00 06/03/18 15:00 - Medications Medications: Current Medications Acetaminophen (Tylenol 325mg Tab) 650 mg PO Q4H PRN PRN Reason: Fever >100.4 F Last Admin: 06/03/18 15:51 Dose: 650 mg Divalproex Sodium (Depakote Sprinkles) 250 mg PO BID [facility] Last Admin: 06/03/18 17:27 Dose: 250 mg Ergocalciferol (Drisdol 50,000 Intl Units Cap) 1 cap PO QWK [facility] Last Admin: 06/03/18 12:00 Dose: 1 cap Famotidine (Pepcid) 20 mg IVP DAILY [facility] Last Admin: 06/03/18 11:58 Dose: 20 mg Piperacillin Sod/Tazobactam Sod (Zosyn 2.25 Gm Iv Premix) 2.25 gm in 50 mls @ 100 mls/hr IVPB Q8H [facility]; Protocol Last Admin: 06/03/18 18:45 Dose: 100 mls/hr Meropenem 1 gm/ Sodium (Chloride) 100 mls @ 100 mls/hr IVPB Q12H [facility]; Protocol Sodium Chloride (Sodium Chloride 0.9%) 1,000 mls @ 150 mls/hr IV .Q6H40M [facility] Last Admin: 06/03/18 18:54 Dose: Not Given Levothyroxine Sodium (Synthroid) 75 mcg PO DAILY@0630 [facility] Memantine (Namenda) 5 mg PO BID [facility] Last Admin: 06/03/18 17:26 Dose: 5 mg Multivitamins/Vitamin C (Multi-Delyn Liquid) 15 ml PO DAILY [facility] Last Admin: 06/03/18 11:59 Dose: 15 ml Risperidone (Risperdal Tab) 0.5 mg PO HS [facility] Rosuvastatin Calcium (Crestor) 10 mg PO HS [facility] - Labs Labs: 06/03/18 05:28 06/03/18 05:28 PT 12.1 SECONDS (9.7-12.2) 06/03/18 05:28 INR 1.1 06/03/18 05:28 APTT 38 SECONDS (21-34) H 06/03/18 05:28 - Skin Skin Exam: Dry Assessment and Plan - Assessment and Plan (Free Text) Plan: BP 95/55, HR 121, T 102.0 Patient was already given one of Vanco. Zosyn was already on. Merrem was added. IVF were increased from 100 -> 150 mls/hr Baseline Cr from previous admission 1.2. Increased to 3.8 today. Stat C/A/P w/o contrast ordered. Repeat CXR ordered for tomorrow AM. Isbell was inserted to collected urine sample for urine culture and help with retention. Suggest Renal consult. Attempt made to contact PMD, Dr. Rosales. Sent to [employer]; did not leave a message. Will attempt again later. Will f/u lactate with ABG shock and Sepsis Progress Note @ 2200 Code Sepsis ended at 1855. <Bryant Ventura H - Last Filed: 06/04/18 07:36> Objective - Vital Signs/Intake and Output Vital Signs (last 24 hours): Temp Pulse Resp BP Pulse Ox 98.9 F 85 20 106/60 99 06/04/18 04:09 06/04/18 04:09 06/04/18 04:09 06/04/18 04:09 06/04/18 04:09 Intake and Output: 06/04/18 06/04/18 06:59 18:59 Output Total 300 Balance -300 - Medications Medications: Current Medications Acetaminophen (Tylenol 325mg Tab) 650 mg PO Q4H PRN PRN Reason: Fever >100.4 F Last Admin: 06/03/18 15:51 Dose: 650 mg Divalproex Sodium (Depakote Sprinkles) 250 mg PO BID [facility] Last Admin: 06/03/18 17:27 Dose: 250 mg Ergocalciferol (Drisdol 50,000 Intl Units Cap) 1 cap PO QWK [facility] Last Admin: 06/03/18 12:00 Dose: 1 cap Famotidine (Pepcid) 20 mg IVP DAILY [facility] Last Admin: 06/03/18 11:58 Dose: 20 mg Meropenem 1 gm/ Sodium (Chloride) 100 mls @ 100 mls/hr IVPB Q12H [facility]; Protocol Last Admin: 06/04/18 06:25 Dose: 100 mls/hr Sodium Chloride (Sodium Chloride 0.9%) 1,000 mls @ 150 mls/hr IV .Q6H40M [facility] Last Admin: 06/04/18 03:02 Dose: 150 mls/hr Levothyroxine Sodium (Synthroid) 75 mcg PO DAILY@0630 [facility] Last Admin: 06/04/18 06:28 Dose: 75 mcg Memantine (Namenda) 5 mg PO BID [facility] Last Admin: 06/03/18 17:26 Dose: 5 mg Multivitamins/Vitamin C (Multi-Delyn Liquid) 15 ml PO DAILY [facility] Last Admin: 06/03/18 11:59 Dose: 15 ml Risperidone (Risperdal Tab) 0.5 mg PO HS [facility] Last Admin: 06/03/18 22:02 Dose: 0.5 mg - Labs Labs: 06/03/18 05:28 06/03/18 05:28 PT 12.1 SECONDS (9.7-12.2) 06/03/18 05:28 INR 1.1 06/03/18 05:28 APTT 38 SECONDS (21-34) H 06/03/18 05:28 Attending/Attestation - Attestation I have personally seen and examined this patient.: Yes I have fully participated in the care of the patient.: Yes I have reviewed all pertinent clinical information, including history, physical exam and plan: Yes Notes (Text): 06/04/18 07:30 Hospitalist note: A CODE sepsis was called - the patient had a preliminary gram negative cultures seen. When we came and saw the patient she was awake, alert, talking however appears to have some dementia as well. She does follow some simple commands. And was able to answer some very simple questions. Vital signs were noted, there is also bandemia seen on the lab work as well, and also increase in the creatine. Her previous baseline creatine was 1.2 only several months ago. She had already recived zosyn IV and was pending the IV meropneom. Agree with this. Also we increased the IVF she was haivng as well. Also on exam the patient's mouth appeared exceedingly dry. She also on exam sometimes had pain with palpation of the abdomen, given that there is an increase in creatine will check a CT of the abdomen and pelvis without contrast. Also start a isbell cather as well to monitor I and Os. Possible the RACHEL is from dehydration/pre-renal or possibly from a stone. ABGs need to be drawn as well. Bryant Ventura
[2018-06-03] MEDS: Meropenem 1 GM in Sodium Chloride 0.9% 100 ML IVPB SCH (19:45)
--- NOTE | 2018-06-03 21:01 | CP.PCM.HP ---
History of Present Illness - History of Present Illness History of Present Illness: Chief complaint: sent from [place] with not feeling well and weakness and increasing lethargic. History present illness: Ms. Brantley is a 87 year old female with PMHx of HTN, Hypothyroidism, and Dementia, Bipolar disease on chronic lithium treatment in the past . Recently hospitalized with a left arm fracture, and lithium toxicity While in the rehabilitation patient was not eating well, not drinking enough, and she was not participating much activities. During the day today patient was not feeling well, increasing weakness noted and low grade fever noted IN Ed pt evaluated and suspected infection and started on zosyn while in floor pt developed high fever and also blood culture showed GNB. now she is awake and responding no in distress. pt is confused. agitated. PMHx: HTN, Hypothyroidism, Dementia, Bipolar, chronic lithium treatment PSHx: Denied Meds: As per OCT, reviewed and confirmed All: NKDA SHx: Denied any tobacco, ETOH, or illicit drug use FHx: Unremarkable POA: Kei Winchester - sister - [phone] Review of systems: Patient is somewhat sleepy, arousable, moving all 4 extremities. She does not have any symptoms of pain, but the tremor and weakness noted. On examination: HEENT PERRLA, neck supple, responding to stimuli follows commands. No thyromegaly was noted and no cervical adenopathy noted Chest bilateral good air entry, no wheezing or rales noted CVS regular heart sound, no murmur Abdomen soft and no organomegaly Generalized tremor, mildly noted Patient is somewhat lethargic but Arousable and awake Labs noted. high creatinine high BUN GNB in blood Assessment and recommendation: 87-year-old female with history of hypertension, hypothyroidism, dementia,, bipolar disease on chronic lithium treatment in the past Recently had left radial fracture, closed reduction, cast. Multiple falls. Now with AMS and weakness, with fever and sickness. GNB bacteremia and severe sepsis . possible cystitis will get UC on antibiotic IVF renal and ID eval DVt and GI prophylaxis and will f/u tried to talk pt sister and left message Present on Admission - Present on Admission Any Indicators Present on Admission: No History of DVT/PE: No History of Uncontrolled Diabetes: No Urinary Catheter: No Decubitus Ulcer Present: No Past Patient History - Infectious Disease Hx of Infectious Diseases: None - Past Medical History & Family History Past Medical History?: Yes - Past Social History Smoking Status: Never Smoked - CARDIAC Hx Hypercholesterolemia: Yes Hx Hypertension: Yes - PULMONARY Hx Tuberculosis: No - NEUROLOGICAL Hx Dementia: Yes Hx Seizures: No - HEENT Hx HEENT Problems: No - RENAL Hx Chronic Kidney Disease: No - ENDOCRINE/METABOLIC Hx Hypothyroidism: Yes - HEMATOLOGICAL/ONCOLOGICAL Hx Human Immunodeficiency Virus (HIV): No - INTEGUMENTARY Hx Dermatological Problems: No - MUSCULOSKELETAL/RHEUMATOLOGICAL Hx Musculoskeletal Disorders: Yes Hx Falls: Yes - GASTROINTESTINAL Hx Gastrointestinal Disorders: No - GENITOURINARY/GYNECOLOGICAL Hx Sexually Transmitted Disorders: No - PSYCHIATRIC Hx Anxiety: Yes Hx Bipolar Disorder: Yes Hx Depression: Yes Hx Substance Use: No - SURGICAL HISTORY Hx Surgeries: No Other/Comment: left distal radius closed reduction (11/04/17) - ANESTHESIA Hx Anesthesia: Yes Hx Anesthesia Reactions: No Hx Malignant Hyperthermia: No Meds Allergies/Adverse Reactions: Allergies Allergy/AdvReac Type Severity Reaction Status Date / Time No Known Allergies Allergy Verified 06/03/18 04:50 Results - Vital Signs Recent Vital Signs: Last Vital Signs Temp 99.4 F 06/03/18 19:44 Pulse 123 H 06/03/18 15:00 Resp 20 06/03/18 15:00 BP 101/59 L 06/03/18 15:00 Pulse Ox 95 06/03/18 15:00 - Labs Result Diagrams: 06/03/18 05:28 06/03/18 05:28 Labs: Laboratory Results - last 24 hr 06/03/18 06/03/18 06/03/18 04:52 05:25 05:28 WBC 14.5 H D RBC 3.92 Hgb 11.9 Hct 36.0 MCV 91.9 MCH 30.3 MCHC 32.9 L RDW 14.6 H Plt Count 125 L D MPV 8.3 Neut % (Auto) 91.6 H Lymph % (Auto) 2.8 L [place] % (Auto) 5.3 Eos % (Auto) 0.2 Baso % (Auto) 0.1 Neut # (Auto) 13.3 H Lymph # (Auto) 0.4 L [place] # (Auto) 0.8 Eos # (Auto) 0.0 Baso # (Auto) 0.0 Neutrophils % (Manual) 66 Band Neutrophils % 24 H* Lymphocytes % (Manual) 2 L Monocytes % (Manual) 8 Platelet Estimate Normal PT INR APTT Puncture Site pCO2 pO2 29 L HCO3 ABG pH ABG Total CO2 ABG O2 Saturation ABG Base Excess John Test ABG Potassium VBG pH 7.39 VBG pCO2 40 VBG HCO3 23.2 VBG Total CO2 25.4 VBG O2 Sat (Calc) 50.8 VBG Base Excess -0.7 L VBG Potassium 4.1 A-a O2 Difference Respiratory Index Sodium 138.0 Chloride 107.0 Glucose 97 Lactate 2.0 FiO2 Potassium Carbon Dioxide Anion Gap BUN Creatinine Est GFR ( Amer) Est GFR (Non-Af Amer) POC Glucose (mg/dL) 102 Random Glucose Lactic Acid Calcium Total Bilirubin AST ALT Alkaline Phosphatase Total Protein Albumin Globulin Albumin/Globulin Ratio Procalcitonin Arterial Blood Potassium Venous Blood Potassium 4.1 Influenza Typ A,B (EIA) 06/03/18 06/03/18 06/03/18 05:28 05:28 05:30 WBC RBC Hgb Hct MCV MCH MCHC RDW Plt Count MPV Neut % (Auto) Lymph % (Auto) [place] % (Auto) Eos % (Auto) Baso % (Auto) Neut # (Auto) Lymph # (Auto) [place] # (Auto) Eos # (Auto) Baso # (Auto) Neutrophils % (Manual) Band Neutrophils % Lymphocytes % (Manual) Monocytes % (Manual) Platelet Estimate PT 12.1 INR 1.1 APTT 38 H Puncture Site pCO2 pO2 HCO3 ABG pH ABG Total CO2 ABG O2 Saturation ABG Base Excess John Test ABG Potassium VBG pH VBG pCO2 VBG HCO3 VBG Total CO2 VBG O2 Sat (Calc) VBG Base Excess VBG Potassium A-a O2 Difference Respiratory Index Sodium 139 Chloride 102 Glucose Lactate FiO2 Potassium 4.9 Carbon Dioxide 23 Anion Gap 19 BUN 87 H Creatinine 3.8 H Est GFR ( Amer) 14 Est GFR (Non-Af Amer) 11 POC Glucose (mg/dL) Random Glucose 99 Lactic Acid Calcium 9.0 Total Bilirubin 0.8 AST 33 ALT 22 Alkaline Phosphatase 81 Total Protein 6.5 Albumin 3.6 Globulin 2.9 Albumin/Globulin Ratio 1.2 Procalcitonin Arterial Blood Potassium Venous Blood Potassium Influenza Typ A,B (EIA) Negative for flu a/b 06/03/18 06/03/18 06/03/18 18:57 19:00 19:03 WBC RBC Hgb Hct MCV MCH MCHC RDW Plt Count MPV Neut % (Auto) Lymph % (Auto) [place] % (Auto) Eos % (Auto) Baso % (Auto) Neut # (Auto) Lymph # (Auto) [place] # (Auto) Eos # (Auto) Baso # (Auto) Neutrophils % (Manual) Band Neutrophils % Lymphocytes % (Manual) Monocytes % (Manual) Platelet Estimate PT INR APTT Puncture Site Rra pCO2 29 L pO2 100 HCO3 24.8 ABG pH 7.49 H ABG Total CO2 23.0 ABG O2 Saturation 98.5 H ABG Base Excess -0.2 John Test Pos ABG Potassium 4.2 VBG pH VBG pCO2 VBG HCO3 VBG Total CO2 VBG O2 Sat (Calc) VBG Base Excess VBG Potassium A-a O2 Difference 63.0 Respiratory Index 0.6 Sodium 137.0 Chloride 107.0 Glucose 135 H Lactate 1.2 FiO2 28.0 Potassium Carbon Dioxide Anion Gap BUN Creatinine Est GFR ( Amer) Est GFR (Non-Af Amer) POC Glucose (mg/dL) Random Glucose Lactic Acid 1.2 Calcium Total Bilirubin AST ALT Alkaline Phosphatase Total Protein Albumin Globulin Albumin/Globulin Ratio Procalcitonin 17.74 H Arterial Blood Potassium 4.2 Venous Blood Potassium Influenza Typ A,B (EIA)
[2018-06-03 22:13] LABS: SQUAMOUS EPITHIAL < 1 /hpf (0-5); URINE BACTERIA FEW (<OCC); URINE BILIRUBIN NEGATIVE (NEGATIVE); URINE BLOOD 3+ (NEGATIVE); URINE CLARITY Hazy (Clear); URINE COLOR Yellow (YELLOW); URINE GLUCOSE (UA) NORMAL (Normal); URINE LEUKOCYTE ESTERASE 3+ Leu/uL (Negative); URINE PROTEIN 2+ mg/dL (NEGATIVE); URINE UROBILINOGEN NORMAL mg/dL (0.2-1.0)
--- NOTE | 2018-06-03 22:25 | PCM.SEPTIC ---
Sepsis Progress Note - Reassessment Type Date of Evaluation: 06/03/18 Time of Evaluation: 22:10 Reassessment Type: Non-invasive reassessment - Non Invasive Reassessment Were the most recent vital sign reviewed: Yes Vital Sign (Latest): Temp Pulse Resp BP Pulse Ox 99.4 F 123 H 20 101/59 L 95 06/03/18 19:44 06/03/18 15:00 06/03/18 15:00 06/03/18 15:00 06/03/18 15:00 Cardiovascular: Yes: Regular Rate, Rhythm Respiratory: Yes: Normal Breath Sounds. No: Accessory Muscle Use, Crackles, Rales, Rhonchi, Stridor, Wheezing Capillary Refill: Normal (Less than 2 sec) Pulses: Normal Radial Skin: Normal Color
[2018-06-04] MEDS: Sodium Chloride 0.9% 1,000 ML IV SCH ×7 (01:25→21:00)
[2018-06-04] MEDS: Meropenem 1 GM in Sodium Chloride 0.9% 100 ML IVPB SCH ×2 (06:25→18:06)
[2018-06-04] MEDS: Levothyroxine 75 MCG TAB PO SCH (06:28)
[2018-06-04 08:27] LABS: BASO % 0.1 % (0.0-2.0); EOS # 0.1 K/uL (0.0-0.7); EOS % 0.6 % (0.0-4.0); LYMPH # 0.3 K/uL (1.0-4.3); LYMPH % 2.5 % (20.0-40.0); MEAN CELL VOLUME 91.7 fL (81.0-99.0); MEAN CORPUSCULAR HEMOGLOBIN 30.7 pg (27.0-31.0); MEAN CORPUSCULAR HGB CONC 33.4 g/dL (33.0-37.0); MEAN PLATELET VOLUME 8.3 fL (7.2-11.7); MONO # 0.9 K/uL (0.0-0.8); MONO % 7.6 % (0.0-10.0); NEUT # 10.7 K/uL (1.8-7.0); NEUT % 89.2 % (50.0-75.0); PLATELET COUNT 118 K/uL (130-400); RBC 3.09 Mil/uL (3.80-5.20); RED CELL DISTRIBUTION WIDTH 14.7 % (11.5-14.5)
[2018-06-04 08:44] LABS: HEMOGLOBIN 9.5 g/dL (11.0-16.0)
[2018-06-04 08:52] LABS: CREATININE, RANDOM URINE 63.5 mg/dL
[2018-06-04 08:57] LABS: ALB/GLOB RATIO 1.1 (1.0-2.1); ALBUMIN 2.6 g/dL (3.5-5.0); CALCIUM 8.2 mg/dl (8.6-10.4)
[2018-06-04 09:15] LABS: BANDS 21 % (0-2); LYMPHOCYTE 1 % (20-40); MONOCYTE 9 % (0-10); NEUTROPHIL 69 % (50-75); TOTAL CELLS COUNTED 100
[2018-06-04 09:16] LABS: ANISOCYTOSIS SLIGHT; BURR CELLS SLIGHT; HYPOCHROMIC SLIGHT; OVALOCYTES SLIGHT; PLATELET ESTIMATE SLIGHTLY DECREASED (NORMAL); POIKILOCYTOSIS SLIGHT
--- NOTE | 2018-06-04 09:38 | RAD ---
Date of service: 06/04/2018 HISTORY: PNA, EXECUTIVE KITCHEN MANAGER COMPARISON: Comparison chest dated 06/03/2018. FINDINGS: LUNGS: Poor inspiration with low lung volumes, crowded bronchovascular markings and minor bibasilar atelectasis however more patchy opacity right lower lobe could represent developing infiltrates. Suspect minor pulmonary venous congestive changes as well.. PLEURA: Apparent tiny bilateral effusions left larger than right. No pneumothorax apparent. CARDIOVASCULAR: Mild aortic atherosclerotic calcification present. Aorta ectatic and uncoiled. Normal cardiac size.. OSSEOUS STRUCTURES: No significant abnormalities. VISUALIZED UPPER ABDOMEN: Normal. OTHER FINDINGS: None. IMPRESSION: Poor inspiration with low lung volumes, crowded bronchovascular markings and minor bibasilar atelectasis however more patchy opacity right lower lobe could represent developing infiltrates. Suspect minor pulmonary venous congestive changes as well..
[2018-06-04] MEDS: Divalproex 125 mg Sprinkle Capsule PO SCH ×2 (10:35→18:06)
[2018-06-04] MEDS: Multiple Vitamins Oral Solution PO SCH (10:36)
--- NOTE | 2018-06-04 11:47 | CARD ---
APPROVED REPORT Date of service: 06/03/2018 EKG Measurement Heart [id number] <Conclusion> Normal sinus rhythm. rbbb
--- NOTE | 2018-06-04 12:32 | CT ---
Date of service: 06/03/2018 PROCEDURE: CT Chest, Abdomen and Pelvis without intravenous contrast. HISTORY: STUDENT FINANCIAL SERVICES COUNSELOR, code sepsis, increased Cr COMPARISON: None available. TECHNIQUE: Radiation dose: Total exam DLP = 972.87 mGy-cm. This CT exam was performed using one or more of the following dose reduction techniques: Automated exposure control, adjustment of the mA and/or kV according to patient size, and/or use of iterative reconstruction technique. FINDINGS: Evaluation of the chest limited due to crossing streak and beam hardening artifact arising from the lower extremities which have not been moved from the field of view. CT CHEST WITHOUT CONTRAST: LUNGS: Suspect minor pulmonary venous congestion. There are small bilateral effusions and bibasilar atelectasis left greater than right including the left lingular region.. Minimal linear atelectasis and/or scarring seen in the right upper lobe extending to the pleural surface. Mild biapical pleural thickening and parenchymal scarring changes right greater than left. The MEDIASTINUM: Heart size within range of normal. Questionable trace pericardial effusion.. Minor partially calcified atherosclerotic plaque changes seen along the thoracic the aorta. Ascending thoracic aorta measures approximately 3.5 cm and descending thoracic aorta measures approximately 2.6 cm. Pulmonary trunk measures approximately 3.2 cm. Evaluation of the thyroid gland is somewhat limited due to crossing streak and beam hardening artifact arising from dense clavicles and shoulder girdles. LYMPH NODES: There are a few small nonspecific mediastinal lymph nodes. Evaluation hilar adenopathy is limited due to the lack of circulating intravenous contrast material. The trachea is midline and patent with no significant endoluminal lesions identified. There is a small hiatal hernia with slight wall thickening of the distal esophagus of possibly in part due to protrusion of gastric mucosa however esophagitis not excluded. PLEURA: As above. No evidence of pneumothorax. BONES: Mild multilevel degenerative spondylosis of the thoracic spine no acute compression fractures no retropulsed fragments. OTHER FINDINGS: None. CT ABDOMEN AND PELVIS: Evaluation of the upper abdomen limited due to crossing streak and beam hardening artifact arising from the lower extremities which have not been moved from the field of view. LIVER: Approximately 7 mm elliptical shaped low-attenuation liver lesion left lobe liver with Hounsfield units approximately 10-11 consistent with small cyst. No other focal areas of abnormal attenuation however note that evaluation of the liver is limited due to fairly significant streak and beam hardening artifact. GALLBLADDER AND BILE DUCTS: Gallbladder physiologically distended. No evidence of intraluminal gallbladder calculi. PANCREAS: Pancreas appears slightly atrophic and fatty replaced. There are no pancreatic masses or collections so far as can be seen. SPLEEN: There appears to be a partially calcified splenic artery aneurysm measuring up to 9 mm.. The spleen exhibits relatively normal attenuation pattern so far as can be seen through significant streak and beam hardening artifact. ADRENALS: There are no adrenal lesions. KIDNEYS AND URETERS: Kidneys demonstrate relatively symmetric size. No evidence of nephrolithiasis or hydronephrosis. Mild nonspecific infiltration changes seen in the perinephric fat. VASCULATURE: No aortic atherosclerotic calcification or mural plaque present. Unremarkable. No aortic aneurysm. BOWEL: Evaluation of the bowel is somewhat limited due to the lack of oral contrast material. The stomach is incompletely distended. There are several mildly distended fluid-filled loops of proximal small bowel nonspecific. Stool and air seen throughout the large bowel. With apparent localized distention of the distal transverse colon, splenic flexure and proximal descending colon. No evidence to suggest acute mechanical bowel obstruction.. Occasional colonic diverticula felt present APPENDIX: Apparent normal appendix best seen on axial image number [id number]. PERITONEUM: Unremarkable. No free fluid. No free air. LYMPH NODES: Unremarkable. No enlarged lymph nodes. BLADDER: U urinary bladder is incompletely distended which may in part account for slight thick-walled appearance. Correlation with urinalysis recommended. REPRODUCTIVE: Unremarkable aside from some minor peripheral uterine and possible ovarian calcifications, questionably vascular in origin. BONES: Mild multilevel degenerative spondylosis of the lumbar spine. Chronic superior endplate deformity of the L1 segment. OTHER FINDINGS: None. IMPRESSION: Limited study. Suspect minor pulmonary venous congestive changes. Small bilateral effusions and bibasilar atelectasis left greater than right. No acute intra abdominal pathology. Small suspected cyst left lobe liver.. 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 Colonic diverticulosis without radiographic evidence of diverticulitis.
--- NOTE | 2018-06-04 13:08 | US ---
Date of service: 06/04/2018 PROCEDURE: Ultrasound of the Kidneys HISTORY: macrina r/o hydro COMPARISON: Correlations made to CT scan of the chest, abdomen pelvis performed 06/03/2018. TECHNIQUE: Sonogram of the kidneys. FINDINGS: RIGHT KIDNEY: Measures: 10.0 x 4.7 x 5.1 cm. Normal in size, contour and echogenicity. No stone, solid mass lesion or hydronephrosis visualized. LEFT KIDNEY: Measures: 10.4 x 5.3 x 5.5 cm. Normal in size, contour and echogenicity. No stone, solid mass lesion or hydronephrosis visualized. OTHER FINDINGS: None. IMPRESSION: Unremarkable renal sonogram.
--- NOTE | 2018-06-04 13:09 | CP.PCM.CON ---
History of Present Illness - History of Present Illness History of Present Illness: CC/o weakness, lethergy from [place] Ms. Brantley is a 87 year old WF , resident of [place] with PMHx of HTN, Hypothyroidism, and Dementia, Bipolar disease on chronic lithium treatment in the past . who was Recently hospitalized with a left arm fracture, and lithium toxicity. Now pt was sent to ER for evaluation of weakness, lethergy, not p articipating in the activities from [place], pt was found to have a fever, in the ER,s/p blood c/s were drawn , started on iv abx for possible sepsis. pt is a poor historian, unable get any history from patient . EMR reviewed and obtained, also from Dr Rosales. pt is not in acute distree, no sob, no pain, occ irritable, pt says " i don't remember things". now blood c/s are postive for GNR , urine is also cloudy. renal consult is requsted for evaluation of RACHEL Review of Systems - Review of Systems All systems: reviewed and no additional remarkable complaints except Review of Systems: wekaness,lethergy - Constitutional Constitutional: As Per HPI - EENT Eyes: As Per HPI Ears: As Per HPI Nose/Mouth/Throat: As Per HPI - Cardiovascular Cardiovascular: As Per HPI - Respiratory Respiratory: As Per HPI - Gastrointestinal Gastrointestinal: As Per HPI - Genitourinary Genitourinary: As Per HPI - Musculoskeletal Musculoskeletal: As Per HPI - Integumentary Integumentary: As Per HPI - Neurological Neurological: As Per HPI, Confusion - Psychiatric Psychiatric: As Per HPI, Confusion - Endocrine Endocrine: As Per HPI - Hematologic/Lymphatic Hematologic: As Per HPI Past Patient History - Infectious Disease Hx of Infectious Diseases: None - Past Medical History & Family History Past Medical History?: Yes - Past Social History Smoking Status: Never Smoked - CARDIAC Hx Hypercholesterolemia: Yes Hx Hypertension: Yes - PULMONARY Hx Tuberculosis: No - NEUROLOGICAL Hx Dementia: Yes Hx Seizures: No - HEENT Hx HEENT Problems: No - RENAL Hx Chronic Kidney Disease: No - ENDOCRINE/METABOLIC Hx Hypothyroidism: Yes - HEMATOLOGICAL/ONCOLOGICAL Hx Human Immunodeficiency Virus (HIV): No - INTEGUMENTARY Hx Dermatological Problems: No - MUSCULOSKELETAL/RHEUMATOLOGICAL Hx Musculoskeletal Disorders: Yes Hx Falls: Yes - GASTROINTESTINAL Hx Gastrointestinal Disorders: No - GENITOURINARY/GYNECOLOGICAL Hx Sexually Transmitted Disorders: No - PSYCHIATRIC Hx Anxiety: Yes Hx Bipolar Disorder: Yes Hx Depression: Yes Hx Substance Use: No - SURGICAL HISTORY Hx Surgeries: No Other/Comment: left distal radius closed reduction (11/04/17) - ANESTHESIA Hx Anesthesia: Yes Hx Anesthesia Reactions: No Hx Malignant Hyperthermia: No Meds Allergies/Adverse Reactions: Allergies Allergy/AdvReac Type Severity Reaction Status Date / Time No Known Allergies Allergy Verified 06/03/18 04:50 - Medications Medications: Current Medications Acetaminophen (Tylenol 325mg Tab) 650 mg PO Q4H PRN PRN Reason: Fever >100.4 F Last Admin: 06/03/18 15:51 Dose: 650 mg Divalproex Sodium (Depakote Sprinkles) 250 mg PO BID [facility] Last Admin: 06/04/18 10:35 Dose: 250 mg Ergocalciferol (Drisdol 50,000 Intl Units Cap) 1 cap PO QWK [facility] Last Admin: 06/03/18 12:00 Dose: 1 cap Famotidine (Pepcid) 20 mg IVP DAILY [facility] Last Admin: 06/04/18 10:34 Dose: 20 mg Meropenem 1 gm/ Sodium (Chloride) 100 mls @ 100 mls/hr IVPB Q12H [facility]; Protocol Last Admin: 06/04/18 06:25 Dose: 100 mls/hr Sodium Chloride (Sodium Chloride 0.9%) 1,000 mls @ 125 mls/hr IV .Q8H [facility] Last Admin: 06/04/18 10:48 Dose: 125 mls/hr Influenza Virus Vaccine (Fluzone Quad [id number]) 60 mcg IM .ONCE ONE Stop: 06/05/18 10:01 Levothyroxine Sodium (Synthroid) 75 mcg PO DAILY@0630 [facility] Last Admin: 06/04/18 06:28 Dose: 75 mcg Memantine (Namenda) 5 mg PO BID [facility] Last Admin: 06/04/18 10:35 Dose: 5 mg Multivitamins/Vitamin C (Multi-Delyn Liquid) 15 ml PO DAILY [facility] Last Admin: 06/04/18 10:36 Dose: 15 ml Risperidone (Risperdal Tab) 0.5 mg PO HS [facility] Last Admin: 06/03/18 22:02 Dose: 0.5 mg Physical Exam - Head Exam Head Exam: ATRAUMATIC, NORMAL INSPECTION, NORMOCEPHALIC - Eye Exam Eye Exam: EOMI, Normal appearance, PERRL Pupil Exam: NORMAL ACCOMODATION - ENT Exam ENT Exam: Mucous Membranes Dry - Neck Exam Neck exam: Positive for: Full Rom, Normal Inspection - Respiratory Exam Respiratory Exam: Clear to Auscultation Bilateral, NORMAL BREATHING PATTERN - Cardiovascular Exam Cardiovascular Exam: +S2 - GI/Abdominal Exam GI & Abdominal Exam: Normal Bowel Sounds, Soft Additional comments: non tender, bS+, no HSM - Rectal Exam Rectal Exam: Deferred - Extremities Exam Additional comments: no edema of legs - Neurological Exam Neurological exam: CN II-XII Intact Additional comments: awake, oriented x 2, non focal neuro exam - Psychiatric Exam Psychiatric exam: Flat Affect - Skin Skin Exam: Dry, Normal Color, Warm Results - Vital Signs Recent Vital Signs: Last Vital Signs Temp 97.6 F 06/04/18 07:45 Pulse 83 06/04/18 07:45 Resp 20 06/04/18 07:45 BP 94/56 L 06/04/18 07:45 Pulse Ox 94 L 06/04/18 07:45 - Labs Result Diagrams: 06/04/18 08:11 06/04/18 08:11 Labs: Laboratory Results - last 24 hr 06/03/18 06/03/18 06/03/18 08:13 18:57 19:00 WBC RBC Hgb Hct MCV MCH MCHC RDW Plt Count MPV Neut % (Auto) Lymph % (Auto) [place] % (Auto) Eos % (Auto) Baso % (Auto) Neut # (Auto) Lymph # (Auto) [place] # (Auto) Eos # (Auto) Baso # (Auto) Neutrophils % (Manual) Band Neutrophils % Lymphocytes % (Manual) Monocytes % (Manual) Platelet Estimate Hypochromasia (manual) Poikilocytosis (manual Anisocytosis (manual) Ovalocytes [place] Cells Puncture Site Rra pCO2 29 L pO2 100 HCO3 24.8 ABG pH 7.49 H ABG Total CO2 23.0 ABG O2 Saturation 98.5 H ABG Base Excess -0.2 John Test Pos ABG Potassium 4.2 A-a O2 Difference 63.0 Respiratory Index 0.6 Sodium 137.0 Chloride 107.0 Glucose 135 H Lactate 1.2 FiO2 28.0 Potassium Carbon Dioxide Anion Gap BUN Creatinine Est GFR ( Amer) Est GFR (Non-Af Amer) Random Glucose Lactic Acid 1.2 Calcium Phosphorus Magnesium Total Bilirubin AST ALT Alkaline Phosphatase Total Protein Albumin Globulin Albumin/Globulin Ratio Procalcitonin Arterial Blood Potassium 4.2 Urine Color Urine Clarity Urine pH Ur Specific [place] Urine Protein Urine Glucose (UA) Urine Ketones Urine Blood Urine Nitrate Urine Bilirubin Urine Urobilinogen Ur Leukocyte Esterase Urine WBC (Auto) Urine RBC (Auto) Ur Squamous Epith Cells Urine Bacteria Ur Random Creatinine 63.5 Ur Random Sodium 33 06/03/18 06/03/18 06/04/18 19:03 22:14 08:11 WBC 12.0 H RBC 3.09 L Hgb 9.5 L D Hct 28.3 L MCV 91.7 MCH 30.7 MCHC 33.4 RDW 14.7 H Plt Count 118 L MPV 8.3 Neut % (Auto) 89.2 H Lymph % (Auto) 2.5 L [place] % (Auto) 7.6 Eos % (Auto) 0.6 Baso % (Auto) 0.1 Neut # (Auto) 10.7 H Lymph # (Auto) 0.3 L [place] # (Auto) 0.9 H Eos # (Auto) 0.1 Baso # (Auto) 0.0 Neutrophils % (Manual) 69 Band Neutrophils % 21 H* Lymphocytes % (Manual) 1 L Monocytes % (Manual) 9 Platelet Estimate Slightly decreased L Hypochromasia (manual) Slight Poikilocytosis (manual Slight Anisocytosis (manual) Slight Ovalocytes Slight [place] Cells Slight Puncture Site pCO2 pO2 HCO3 ABG pH ABG Total CO2 ABG O2 Saturation ABG Base Excess John Test ABG Potassium A-a O2 Difference Respiratory Index Sodium Chloride Glucose Lactate FiO2 Potassium Carbon Dioxide Anion Gap BUN Creatinine Est GFR ( Amer) Est GFR (Non-Af Amer) Random Glucose Lactic Acid Calcium Phosphorus Magnesium Total Bilirubin AST ALT Alkaline Phosphatase Total Protein Albumin Globulin Albumin/Globulin Ratio Procalcitonin 17.74 H Arterial Blood Potassium Urine Color Yellow Urine Clarity Hazy Urine pH 5.0 Ur Specific [place] 1.014 Urine Protein 2+ H Urine Glucose (UA) Normal Urine Ketones Negative Urine Blood 3+ H Urine Nitrate Negative Urine Bilirubin Negative Urine Urobilinogen Normal Ur Leukocyte Esterase 3+ H Urine WBC (Auto) 135 H Urine RBC (Auto) 176 H Ur Squamous Epith Cells < 1 Urine Bacteria Few H Ur Random Creatinine Ur Random Sodium 06/04/18 08:11 WBC RBC Hgb Hct MCV MCH MCHC RDW Plt Count MPV Neut % (Auto) Lymph % (Auto) [place] % (Auto) Eos % (Auto) Baso % (Auto) Neut # (Auto) Lymph # (Auto) [place] # (Auto) Eos # (Auto) Baso # (Auto) Neutrophils % (Manual) Band Neutrophils % Lymphocytes % (Manual) Monocytes % (Manual) Platelet Estimate Hypochromasia (manual) Poikilocytosis (manual Anisocytosis (manual) Ovalocytes [place] Cells Puncture Site pCO2 pO2 HCO3 ABG pH ABG Total CO2 ABG O2 Saturation ABG Base Excess John Test ABG Potassium A-a O2 Difference Respiratory Index Sodium 139 Chloride 108 H Glucose Lactate FiO2 Potassium 4.2 Carbon Dioxide 20 L Anion Gap 16 BUN 96 H Creatinine 3.9 H Est GFR ( Amer) 13 Est GFR (Non-Af Amer) 11 Random Glucose 107 H Lactic Acid Calcium 8.2 L Phosphorus 4.5 Magnesium 2.4 H Total Bilirubin 0.4 AST 24 ALT 31 Alkaline Phosphatase 71 Total Protein 5.1 L Albumin 2.6 L D Globulin 2.5 Albumin/Globulin Ratio 1.1 Procalcitonin Arterial Blood Potassium Urine Color Urine Clarity Urine pH Ur Specific [place] Urine Protein Urine Glucose (UA) Urine Ketones Urine Blood Urine Nitrate Urine Bilirubin Urine Urobilinogen Ur Leukocyte Esterase Urine WBC (Auto) Urine RBC (Auto) Ur Squamous Epith Cells Urine Bacteria Ur Random Creatinine Ur Random Sodium blood c/sx2 + ve for GNR urine c/s = pending Assessment & Plan - Assessment and Plan (Free Text) Assessment: 88 yo WF with pmh/o htn, hld, hypothyroidism, anxiety, depression, bipolar, s/p fall fx, s/p tx with lithium was admitted with weakness, not participating in routine activities and found to have fever, high wbc, increased bun/cr. base line s.cr is about 1.0, now blood c/s are positive for GNR 1. RACHEL , non oliguric , most likely sec to ATN sec to Gram negative sepsis 2. Gram negative sepsis( GNR), most likely source is the urine 3. Dehydration c/w ivf NS 0.9 % at 100-125 ml/hr c/w iv abx as per ID follow up urine c/s follow up bLood c/s id and sensitivity check urine lytes, osm, cr, u/s of kidneys for size case d/w Dr. Rosales Plan: as above
--- NOTE | 2018-06-04 17:31 | CP.PCM.CON ---
History of Present Illness - History of Present Illness History of Present Illness: admitted with gram negative sepsis 'likelky UTI/ urosepsis full report t o follow Past Patient History - Infectious Disease Hx of Infectious Diseases: None - Past Medical History & Family History Past Medical History?: Yes - Past Social History Smoking Status: Never Smoked - CARDIAC Hx Hypercholesterolemia: Yes Hx Hypertension: Yes - PULMONARY Hx Tuberculosis: No - NEUROLOGICAL Hx Dementia: Yes Hx Seizures: No - HEENT Hx HEENT Problems: No - RENAL Hx Chronic Kidney Disease: No - ENDOCRINE/METABOLIC Hx Hypothyroidism: Yes - HEMATOLOGICAL/ONCOLOGICAL Hx Human Immunodeficiency Virus (HIV): No - INTEGUMENTARY Hx Dermatological Problems: No - MUSCULOSKELETAL/RHEUMATOLOGICAL Hx Musculoskeletal Disorders: Yes Hx Falls: Yes - GASTROINTESTINAL Hx Gastrointestinal Disorders: No - GENITOURINARY/GYNECOLOGICAL Hx Sexually Transmitted Disorders: No - PSYCHIATRIC Hx Anxiety: Yes Hx Bipolar Disorder: Yes Hx Depression: Yes Hx Substance Use: No - SURGICAL HISTORY Hx Surgeries: No Other/Comment: left distal radius closed reduction (11/04/17) - ANESTHESIA Hx Anesthesia: Yes Hx Anesthesia Reactions: No Hx Malignant Hyperthermia: No Meds Allergies/Adverse Reactions: Allergies Allergy/AdvReac Type Severity Reaction Status Date / Time No Known Allergies Allergy Verified 06/03/18 04:50 - Medications Medications: Current Medications Acetaminophen (Tylenol 325mg Tab) 650 mg PO Q4H PRN PRN Reason: Fever >100.4 F Last Admin: 06/03/18 15:51 Dose: 650 mg Divalproex Sodium (Depakote Sprinkles) 250 mg PO BID [facility] Last Admin: 06/03/18 17:27 Dose: 250 mg Ergocalciferol (Drisdol 50,000 Intl Units Cap) 1 cap PO QWK [facility] Last Admin: 06/03/18 12:00 Dose: 1 cap Famotidine (Pepcid) 20 mg IVP DAILY [facility] Last Admin: 06/03/18 11:58 Dose: 20 mg Meropenem 1 gm/ Sodium (Chloride) 100 mls @ 100 mls/hr IVPB Q12H [facility]; Protocol Last Admin: 06/03/18 19:45 Dose: 100 mls/hr Sodium Chloride (Sodium Chloride 0.9%) 1,000 mls @ 150 mls/hr IV .Q6H40M [facility] Last Admin: 06/03/18 18:54 Dose: Not Given Levothyroxine Sodium (Synthroid) 75 mcg PO DAILY@0630 [facility] Memantine (Namenda) 5 mg PO BID [facility] Last Admin: 06/03/18 17:26 Dose: 5 mg Multivitamins/Vitamin C (Multi-Delyn Liquid) 15 ml PO DAILY [facility] Last Admin: 06/03/18 11:59 Dose: 15 ml Risperidone (Risperdal Tab) 0.5 mg PO HS [facility] Last Admin: 06/03/18 22:02 Dose: 0.5 mg Results - Vital Signs Recent Vital Signs: Last Vital Signs Temp 99.4 F 06/03/18 19:44 Pulse 123 H 06/03/18 15:00 Resp 20 06/03/18 15:00 BP 101/59 L 06/03/18 15:00 Pulse Ox 95 06/03/18 15:00 - Labs Result Diagrams: 06/03/18 05:28 06/03/18 05:28 Labs: Laboratory Results - last 24 hr 06/03/18 06/03/18 06/03/18 04:52 05:25 05:28 WBC 14.5 H D RBC 3.92 Hgb 11.9 Hct 36.0 MCV 91.9 MCH 30.3 MCHC 32.9 L RDW 14.6 H Plt Count 125 L D MPV 8.3 Neut % (Auto) 91.6 H Lymph % (Auto) 2.8 L [place] % (Auto) 5.3 Eos % (Auto) 0.2 Baso % (Auto) 0.1 Neut # (Auto) 13.3 H Lymph # (Auto) 0.4 L [place] # (Auto) 0.8 Eos # (Auto) 0.0 Baso # (Auto) 0.0 Neutrophils % (Manual) 66 Band Neutrophils % 24 H* Lymphocytes % (Manual) 2 L Monocytes % (Manual) 8 Platelet Estimate Normal PT INR APTT Puncture Site pCO2 pO2 29 L HCO3 ABG pH ABG Total CO2 ABG O2 Saturation ABG Base Excess John Test ABG Potassium VBG pH 7.39 VBG pCO2 40 VBG HCO3 23.2 VBG Total CO2 25.4 VBG O2 Sat (Calc) 50.8 VBG Base Excess -0.7 L VBG Potassium 4.1 A-a O2 Difference Respiratory Index Sodium 138.0 Chloride 107.0 Glucose 97 Lactate 2.0 FiO2 Potassium Carbon Dioxide Anion Gap BUN Creatinine Est GFR ( Amer) Est GFR (Non-Af Amer) POC Glucose (mg/dL) 102 Random Glucose Lactic Acid Calcium Total Bilirubin AST ALT Alkaline Phosphatase Total Protein Albumin Globulin Albumin/Globulin Ratio Procalcitonin Arterial Blood Potassium Venous Blood Potassium 4.1 Urine Color Urine Clarity Urine pH Ur Specific [place] Urine Protein Urine Glucose (UA) Urine Ketones Urine Blood Urine Nitrate Urine Bilirubin Urine Urobilinogen Ur Leukocyte Esterase Urine WBC (Auto) Urine RBC (Auto) Ur Squamous Epith Cells Urine Bacteria Influenza Typ A,B (EIA) 06/03/18 06/03/18 06/03/18 05:28 05:28 05:30 WBC RBC Hgb Hct MCV MCH MCHC RDW Plt Count MPV Neut % (Auto) Lymph % (Auto) [place] % (Auto) Eos % (Auto) Baso % (Auto) Neut # (Auto) Lymph # (Auto) [place] # (Auto) Eos # (Auto) Baso # (Auto) Neutrophils % (Manual) Band Neutrophils % Lymphocytes % (Manual) Monocytes % (Manual) Platelet Estimate PT 12.1 INR 1.1 APTT 38 H Puncture Site pCO2 pO2 HCO3 ABG pH ABG Total CO2 ABG O2 Saturation ABG Base Excess John Test ABG Potassium VBG pH VBG pCO2 VBG HCO3 VBG Total CO2 VBG O2 Sat (Calc) VBG Base Excess VBG Potassium A-a O2 Difference Respiratory Index Sodium 139 Chloride 102 Glucose Lactate FiO2 Potassium 4.9 Carbon Dioxide 23 Anion Gap 19 BUN 87 H Creatinine 3.8 H Est GFR ( Amer) 14 Est GFR (Non-Af Amer) 11 POC Glucose (mg/dL) Random Glucose 99 Lactic Acid Calcium 9.0 Total Bilirubin 0.8 AST 33 ALT 22 Alkaline Phosphatase 81 Total Protein 6.5 Albumin 3.6 Globulin 2.9 Albumin/Globulin Ratio 1.2 Procalcitonin Arterial Blood Potassium Venous Blood Potassium Urine Color Urine Clarity Urine pH Ur Specific [place] Urine Protein Urine Glucose (UA) Urine Ketones Urine Blood Urine Nitrate Urine Bilirubin Urine Urobilinogen Ur Leukocyte Esterase Urine WBC (Auto) Urine RBC (Auto) Ur Squamous Epith Cells Urine Bacteria Influenza Typ A,B (EIA) Negative for flu a/b 06/03/18 06/03/18 06/03/18 18:57 19:00 19:03 WBC RBC Hgb Hct MCV MCH MCHC RDW Plt Count MPV Neut % (Auto) Lymph % (Auto) [place] % (Auto) Eos % (Auto) Baso % (Auto) Neut # (Auto) Lymph # (Auto) [place] # (Auto) Eos # (Auto) Baso # (Auto) Neutrophils % (Manual) Band Neutrophils % Lymphocytes % (Manual) Monocytes % (Manual) Platelet Estimate PT INR APTT Puncture Site Rra pCO2 29 L pO2 100 HCO3 24.8 ABG pH 7.49 H ABG Total CO2 23.0 ABG O2 Saturation 98.5 H ABG Base Excess -0.2 John Test Pos ABG Potassium 4.2 VBG pH VBG pCO2 VBG HCO3 VBG Total CO2 VBG O2 Sat (Calc) VBG Base Excess VBG Potassium A-a O2 Difference 63.0 Respiratory Index 0.6 Sodium 137.0 Chloride 107.0 Glucose 135 H Lactate 1.2 FiO2 28.0 Potassium Carbon Dioxide Anion Gap BUN Creatinine Est GFR ( Amer) Est GFR (Non-Af Amer) POC Glucose (mg/dL) Random Glucose Lactic Acid 1.2 Calcium Total Bilirubin AST ALT Alkaline Phosphatase Total Protein Albumin Globulin Albumin/Globulin Ratio Procalcitonin 17.74 H Arterial Blood Potassium 4.2 Venous Blood Potassium Urine Color Urine Clarity Urine pH Ur Specific [place] Urine Protein Urine Glucose (UA) Urine Ketones Urine Blood Urine Nitrate Urine Bilirubin Urine Urobilinogen Ur Leukocyte Esterase Urine WBC (Auto) Urine RBC (Auto) Ur Squamous Epith Cells Urine Bacteria Influenza Typ A,B (EIA) 06/03/18 22:14 WBC RBC Hgb Hct MCV MCH MCHC RDW Plt Count MPV Neut % (Auto) Lymph % (Auto) [place] % (Auto) Eos % (Auto) Baso % (Auto) Neut # (Auto) Lymph # (Auto) [place] # (Auto) Eos # (Auto) Baso # (Auto) Neutrophils % (Manual) Band Neutrophils % Lymphocytes % (Manual) Monocytes % (Manual) Platelet Estimate PT INR APTT Puncture Site pCO2 pO2 HCO3 ABG pH ABG Total CO2 ABG O2 Saturation ABG Base Excess John Test ABG Potassium VBG pH VBG pCO2 VBG HCO3 VBG Total CO2 VBG O2 Sat (Calc) VBG Base Excess VBG Potassium A-a O2 Difference Respiratory Index Sodium Chloride Glucose Lactate FiO2 Potassium Carbon Dioxide Anion Gap BUN Creatinine Est GFR ( Amer) Est GFR (Non-Af Amer) POC Glucose (mg/dL) Random Glucose Lactic Acid Calcium Total Bilirubin AST ALT Alkaline Phosphatase Total Protein Albumin Globulin Albumin/Globulin Ratio Procalcitonin Arterial Blood Potassium Venous Blood Potassium Urine Color Yellow Urine Clarity Hazy Urine pH 5.0 Ur Specific [place] 1.014 Urine Protein 2+ H Urine Glucose (UA) Normal Urine Ketones Negative Urine Blood 3+ H Urine Nitrate Negative Urine Bilirubin Negative Urine Urobilinogen Normal Ur Leukocyte Esterase 3+ H Urine WBC (Auto) 135 H Urine RBC (Auto) 176 H Ur Squamous Epith Cells < 1 Urine Bacteria Few H Influenza Typ A,B (EIA)
--- NOTE | 2018-06-04 17:34 | CP.PCM.CON ---
History of Present Illness - History of Present Illness History of Present Illness: 87 year old female was recently hospitalized with a left arm fracture, and lithium toxicity While in the rehabilitation patient was not eating well, not drinking enough, and she was not participating much activities. Transferred here for eval- work up reveals gram neg sepsis likely from urine ID consulted for this PMHx: HTN, Hypothyroidism, Dementia, Bipolar, chronic lithium treatment PSHx: Denied Meds: As per MAR, reviewed and confirmed All: NKDA SHx: Denied any tobacco, ETOH, or illicit drug use FHx: Unremarkable Review of Systems - Review of Systems Systems not reviewed;Unavailable: Altered Mental Status All systems: reviewed and no additional remarkable complaints except - Constitutional Constitutional: As Per HPI - EENT Eyes: absent: As Per HPI, Blind Spots, Blurred Vision, Change in Vision, Decreased Night Vision, Diplopia, Discharge, Dry Eye, Exophthalmos, Floaters, Irritation, Itchy Eyes, Loss of Peripheral Vision, Pain, Photophobia, Requires Corrective Lenses, Sees Flashes, Spots in Vision, Tunnel Vision, Other Visual Disturbances, Loss of Vision, Other Ears: absent: As Per HPI, Decreased Hearing, Ear Discharge, Ear Pain, Tinnitus, Abnormal Hearing, Disequilibrium, Dizziness, Other Nose/Mouth/Throat: absent: As Per HPI, Epistaxis, Nasal Congestion, Nasal Disc harge, Nasal Obstruction, Nasal Trauma, Nose Pain, Post Nasal Drip, Sinus Pain, Sinus Pressure, Bleeding Gums, Change in Voice, Dental Pain, Dry Mouth, Dysphagia, Halitosis, Hoarsness, Lip Swelling, Mouth Lesions, Mouth Pain, Odynophagia, Sore Throat, Throat Swelling, Tongue Swelling, Facial Pain, Neck Pain, Neck Mass, Other - Breasts Breasts: absent: As Per HPI, Change in Shape, Mass, Pain, Nipple Discharge, Nipple Inversion, Skin Changes, Swelling, Other - Cardiovascular Cardiovascular: absent: As Per HPI, Acrocyanosis, Chest Pain, Chest Pain at Rest, Chest Pain with Activity, Claudication, Diaphoresis, Dyspnea, Dyspnea on Exertion, Edema, Irregular Heart Rhythm, Pain Radiating to Arm/Neck/Jaw, Leg Edema, Leg Ulcers, Lightheadedness, Orthopnea, Palpitations, Paroxysmal Nocturnal Dyspnea, Pedal Edema, Radiating Pain, Rapid Heart Rate, Slow Heart Rate, Syncope, Other - Respiratory Respiratory: absent: As Per HPI, Cough, Dyspnea, Hemoptysis, Dyspnea on Exertion, Wheezing, Snoring, Stridor, Pain on Inspiration, Chest Congestion, Excessive Mucous Production, Change in Mucous Color, Pain with Coughing, Other - Gastrointestinal Gastrointestinal: absent: As Per HPI, Abdominal Pain, Belching, Bloating, Change in Bowel Habits, Change in Stool Character, Coffee Ground Emesis, Constipation, Cramping, Diarrhea, Dyspepsia, Dysphagia, Early Satiety, Excessive Flatus, Fecal Incontinence, Heartburn, Hematemesis, Hematochezia, Loose Stools, Melena, Nausea, Odynophagia, Temesmus, Vomiting, Other - Genitourinary Genitourinary: absent: As Per HPI, Change in Urinary Stream, Difficulty Urinating, Dysuria, Flank Pain, Hematuria, Pyuria, Nocturia, Urinary Incontinence, Urinary Frequency, Urinary Hesitance, Urinary Urgency, Voiding Freq/Small Amts, Freq UTI, Hx Renal/Bladder Calculi, Hx /Renal Surgery, Bladder Distension, Other - Reproductive: Female Reproductive:Female: absent: As Per HPI, Amenorrhea, Amenorrhea/ Control, Currently Menstual, Cycle <21 Days, Cycle >35 Days, Cycle Variable, Menses 1-7 Days, Menses >/= 8 Days, Menses Variable, Cycle > 4 Weeks Between, No Menses for 6 Months, Heavy Menses, Light Menses, Normal Menses, Spotting Between Cycles, S/P Hysterectomy, Menopausal, Post Menopausal, Premenarche, Abnormal Vaginal Bleeding, Dysmenorrhea, Dyspareunia, Genital Lesions, Genital Pruritis, Pelvic Pain, Prolapse Symptoms, Sexual Dysfunction, Vaginal Discharge, Vaginal Dryness, Vaginal Odor, Vaginal Pruritis, Other - Menstruation Menstruation: absent: As Per HPI, Amenorrhea, Amenorrhea/ Control, Currently Menstual, Cycle <21 Days, Cycle >35 Days, Cycle Variable, Menses 1-7 Days, Menses >/= 8 Days, Menses Variable, Cycle > 4 Weeks Between, No Menses for 6 Months, Heavy Menses, Light Menses, Normal Menses, Spotting Between Cycles, S/P Hysterectomy, Menopausal, Post Menopausal, Premenarche, Abnormal Vaginal Bleeding, Dysmenorrhea, Other - Musculoskeletal Musculoskeletal: absent: As Per HPI, Abnormal Gait, Arthralgias, Atrophy, Back Pain, Deformity, Joint Swelling, Limited Range of Motion, Loss of Height, Muscle Cramps, Muscle Weakness, Myalgias, Neck Pain, Numbness, Radiating Pain into Limb, Stiffness, Tingling, Other - Integumentary Integumentary: absent: As Per HPI, Acne, Alopecia, Bleeding Lesions, Change in Hair, Change in Nails, Change in Pigmentation, Changing Lesions, Dry Skin, Erythema, Furuncle, Hirsutism, Lesions, New Lesions, Non-Healing Lesions, Photosensitivity, Pruritus, Rash, Skin Pain, Skin Ulcer, Sores, Striae, Swelling, Unusual Bruising, Wounds, Jaundice, Other - Neurological Neurological: As Per HPI - Psychiatric Psychiatric: As Per HPI - Endocrine Endocrine: As Per HPI. absent: Change in Body Appearance, Change in Libido, Cold Intolorance, Deepening of Voice, Excessive Sweating, Fatigue, Flushing, Heat Intolorance, Increase in Ring/Shoe/Hat Size, Palpitations, Polydipsia, Polyphagia, Polyuria, Other - Hematologic/Lymphatic Hematologic: absent: As Per HPI, Easy Bleeding, Easy Bruising, Lymphadenopathy, Other Past Patient History - Infectious Disease Hx of Infectious Diseases: None - Past Medical History & Family History Past Medical History?: Yes - Past Social History Smoking Status: Never Smoked - CARDIAC Hx Hypercholesterolemia: Yes Hx Hypertension: Yes - PULMONARY Hx Tuberculosis: No - NEUROLOGICAL Hx Dementia: Yes Hx Seizures: No - HEENT Hx HEENT Problems: No - RENAL Hx Chronic Kidney Disease: No - ENDOCRINE/METABOLIC Hx Hypothyroidism: Yes - HEMATOLOGICAL/ONCOLOGICAL Hx Human Immunodeficiency Virus (HIV): No - INTEGUMENTARY Hx Dermatological Problems: No - MUSCULOSKELETAL/RHEUMATOLOGICAL Hx Musculoskeletal Disorders: Yes Hx Falls: Yes - GASTROINTESTINAL Hx Gastrointestinal Disorders: No - GENITOURINARY/GYNECOLOGICAL Hx Sexually Transmitted Disorders: No - PSYCHIATRIC Hx Anxiety: Yes Hx Bipolar Disorder: Yes Hx Depression: Yes Hx Substance Use: No - SURGICAL HISTORY Hx Surgeries: No Other/Comment: left distal radius closed reduction (11/04/17) - ANESTHESIA Hx Anesthesia: Yes Hx Anesthesia Reactions: No Hx Malignant Hyperthermia: No Meds Allergies/Adverse Reactions: Allergies Allergy/AdvReac Type Severity Reaction Status Date / Time No Known Allergies Allergy Verified 06/03/18 04:50 - Medications Medications: Current Medications Acetaminophen (Tylenol 325mg Tab) 650 mg PO Q4H PRN PRN Reason: Fever >100.4 F Last Admin: 06/03/18 15:51 Dose: 650 mg Divalproex Sodium (Depakote Sprinkles) 250 mg PO BID ON [facility] OF [facility] Last Admin: 06/04/18 10:35 Dose: 250 mg Ergocalciferol (Drisdol 50,000 Intl Units Cap) 1 cap PO QWK ON [facility] OF [facility] Last Admin: 06/03/18 12:00 Dose: 1 cap Famotidine (Pepcid) 20 mg IVP DAILY ON [facility] OF [facility] Last Admin: 06/04/18 10:34 Dose: 20 mg Meropenem 1 gm/ Sodium (Chloride) 100 mls @ 100 mls/hr IVPB Q12H ON [facility] OF [facility]; Protocol Last Admin: 06/04/18 06:25 Dose: 100 mls/hr Sodium Chloride (Sodium Chloride 0.9%) 1,000 mls @ 125 mls/hr IV .Q8H ON [facility] OF [facility] Last Admin: 06/04/18 10:48 Dose: 125 mls/hr Influenza Virus Vaccine (Fluzone Quad [id number]) 60 mcg IM .ONCE ONE Stop: 06/05/18 10:01 Levothyroxine Sodium (Synthroid) 75 mcg PO DAILY@0630 [facility] OF [facility] Last Admin: 06/04/18 06:28 Dose: 75 mcg Memantine (Namenda) 5 mg PO BID ON [facility] OF [facility] Last Admin: 06/04/18 10:35 Dose: 5 mg Multivitamins/Vitamin C (Multi-Delyn Liquid) 15 ml PO DAILY ON [facility] OF [facility] Last Admin: 06/04/18 10:36 Dose: 15 ml Risperidone (Risperdal Tab) 0.5 mg PO HS ON [facility] OF [facility] Last Admin: 06/03/18 22:02 Dose: 0.5 mg Physical Exam - Constitutional Appears: Confused - Head Exam Head Exam: ATRAUMATIC - Eye Exam Eye Exam: absent: Scleral icterus - ENT Exam ENT Exam: Mucous Membranes Dry, Normal External Ear Exam - Neck Exam Neck exam: Negative for: Lymphadenopathy - Respiratory Exam Respiratory Exam: Decreased Breath Sounds, Rhonchi - Cardiovascular Exam Cardiovascular Exam: REGULAR RHYTHM, +S1, +S2 - GI/Abdominal Exam GI & Abdominal Exam: Diminished Bowel Sounds, Soft. absent: Tenderness - Rectal Exam Rectal Exam: Deferred - Exam Exam: NORMAL INSPECTION - Extremities Exam Extremities exam: Negative for: pedal edema - Back Exam Back exam: absent: CVA tenderness (L), CVA tenderness (R) - Neurological Exam Neurological exam: Alert, Altered, CN II-XII Intact - Psychiatric Exam Psychiatric exam: Depressed - Skin Skin Exam: Dry Results - Vital Signs Recent Vital Signs: Last Vital Signs Temp 99 F 06/04/18 15:00 Pulse 110 H 06/04/18 15:00 Resp 20 06/04/18 15:00 BP 120/57 L 06/04/18 15:00 Pulse Ox 97 06/04/18 15:00 - Labs Result Diagrams: 06/04/18 08:11 06/04/18 08:11 Labs: Laboratory Results - last 24 hr 06/03/18 06/03/18 06/03/18 08:13 18:57 19:00 WBC RBC Hgb Hct MCV MCH MCHC RDW Plt Count MPV Neut % (Auto) Lymph % (Auto) [place] % (Auto) Eos % (Auto) Baso % (Auto) Neut # (Auto) Lymph # (Auto) [place] # (Auto) Eos # (Auto) Baso # (Auto) Neutrophils % (Manual) Band Neutrophils % Lymphocytes % (Manual) Monocytes % (Manual) Platelet Estimate Hypochromasia (manual) Poikilocytosis (manual Anisocytosis (manual) Ovalocytes [place] Cells Puncture Site Rra pCO2 29 L pO2 100 HCO3 24.8 ABG pH 7.49 H ABG Total CO2 23.0 ABG O2 Saturation 98.5 H ABG Base Excess -0.2 John Test Pos ABG Potassium 4.2 A-a O2 Difference 63.0 Respiratory Index 0.6 Sodium 137.0 Chloride 107.0 Glucose 135 H Lactate 1.2 FiO2 28.0 Potassium Carbon Dioxide Anion Gap BUN Creatinine Est GFR ( Amer) Est GFR (Non-Af Amer) POC Glucose (mg/dL) Random Glucose Lactic Acid 1.2 Calcium Phosphorus Magnesium Total Bilirubin AST ALT Alkaline Phosphatase Total Protein Albumin Globulin Albumin/Globulin Ratio Procalcitonin Arterial Blood Potassium 4.2 Urine Color Urine Clarity Urine pH Ur Specific [place] Urine Protein Urine Glucose (UA) Urine Ketones Urine Blood Urine Nitrate Urine Bilirubin Urine Urobilinogen Ur Leukocyte Esterase Urine WBC (Auto) Urine RBC (Auto) Ur Squamous Epith Cells Urine Bacteria Ur Random Creatinine 63.5 Ur Random Sodium 33 06/03/18 06/03/18 06/04/18 19:03 22:14 08:11 WBC 12.0 H RBC 3.09 L Hgb 9.5 L D Hct 28.3 L MCV 91.7 MCH 30.7 MCHC 33.4 RDW 14.7 H Plt Count 118 L MPV 8.3 Neut % (Auto) 89.2 H Lymph % (Auto) 2.5 L [place] % (Auto) 7.6 Eos % (Auto) 0.6 Baso % (Auto) 0.1 Neut # (Auto) 10.7 H Lymph # (Auto) 0.3 L [place] # (Auto) 0.9 H Eos # (Auto) 0.1 Baso # (Auto) 0.0 Neutrophils % (Manual) 69 Band Neutrophils % 21 H* Lymphocytes % (Manual) 1 L Monocytes % (Manual) 9 Platelet Estimate Slightly decreased L Hypochromasia (manual) Slight Poikilocytosis (manual Slight Anisocytosis (manual) Slight Ovalocytes Slight [place] Cells Slight Puncture Site pCO2 pO2 HCO3 ABG pH ABG Total CO2 ABG O2 Saturation ABG Base Excess John Test ABG Potassium A-a O2 Difference Respiratory Index Sodium Chloride Glucose Lactate FiO2 Potassium Carbon Dioxide Anion Gap BUN Creatinine Est GFR ( Amer) Est GFR (Non-Af Amer) POC Glucose (mg/dL) Random Glucose Lactic Acid Calcium Phosphorus Magnesium Total Bilirubin AST ALT Alkaline Phosphatase Total Protein Albumin Globulin Albumin/Globulin Ratio Procalcitonin 17.74 H Arterial Blood Potassium Urine Color Yellow Urine Clarity Hazy Urine pH 5.0 Ur Specific [place] 1.014 Urine Protein 2+ H Urine Glucose (UA) Normal Urine Ketones Negative Urine Blood 3+ H Urine Nitrate Negative Urine Bilirubin Negative Urine Urobilinogen Normal Ur Leukocyte Esterase 3+ H Urine WBC (Auto) 135 H Urine RBC (Auto) 176 H Ur Squamous Epith Cells < 1 Urine Bacteria Few H Ur Random Creatinine Ur Random Sodium 06/04/18 06/04/18 08:11 11:21 WBC RBC Hgb Hct MCV MCH MCHC RDW Plt Count MPV Neut % (Auto) Lymph % (Auto) [place] % (Auto) Eos % (Auto) Baso % (Auto) Neut # (Auto) Lymph # (Auto) [place] # (Auto) Eos # (Auto) Baso # (Auto) Neutrophils % (Manual) Band Neutrophils % Lymphocytes % (Manual) Monocytes % (Manual) Platelet Estimate Hypochromasia (manual) Poikilocytosis (manual Anisocytosis (manual) Ovalocytes [place] Cells Puncture Site pCO2 pO2 HCO3 ABG pH ABG Total CO2 ABG O2 Saturation ABG Base Excess John Test ABG Potassium A-a O2 Difference Respiratory Index Sodium 139 Chloride 108 H Glucose Lactate FiO2 Potassium 4.2 Carbon Dioxide 20 L Anion Gap 16 BUN 96 H Creatinine 3.9 H Est GFR ( Amer) 13 Est GFR (Non-Af Amer) 11 POC Glucose (mg/dL) 137 H Random Glucose 107 H Lactic Acid Calcium 8.2 L Phosphorus 4.5 Magnesium 2.4 H Total Bilirubin 0.4 AST 24 ALT 31 Alkaline Phosphatase 71 Total Protein 5.1 L Albumin 2.6 L D Globulin 2.5 Albumin/Globulin Ratio 1.1 Procalcitonin Arterial Blood Potassium Urine Color Urine Clarity Urine pH Ur Specific [place] Urine Protein Urine Glucose (UA) Urine Ketones Urine Blood Urine Nitrate Urine Bilirubin Urine Urobilinogen Ur Leukocyte Esterase Urine WBC (Auto) Urine RBC (Auto) Ur Squamous Epith Cells Urine Bacteria Ur Random Creatinine Ur Random Sodium Assessment & Plan (1) Sepsis Status: Acute (2) Sepsis Status: Acute (3) Pneumonia Status: Acute (4) Bipolar disorder Status: Chronic (5) Dementia with behavioral disturbance Status: Chronic - Assessment and Plan (Free Text) Assessment: sepsis with bacteremia likely urosepsis r/o pneumonia dehydration and RACHEL prognosis guarded await ID and sensitivity
[2018-06-05] MEDS: Sodium Chloride 0.9% 1,000 ML IV SCH ×4 (05:12→17:18)
[2018-06-05] MEDS: Meropenem 1 GM in Sodium Chloride 0.9% 100 ML IVPB SCH (06:15)
[2018-06-05] MEDS: Levothyroxine 75 MCG TAB PO SCH (06:16)
--- NOTE | 2018-06-05 07:27 | CP.PCM.PN ---
Subjective - Date & Time of Evaluation Date of Evaluation: 06/04/18 Time of Evaluation: 18:00 - Subjective Subjective: Patient is somewhat agitated, anxious. Comfortable otherwise. Today labs also showing evidence of worsening renal function I also spoke to the auto garage attendant. On IV fluid. On examination: Patient is somewhat anxious. Chest good air entry. Cough noted Vital signs otherwise stable no fever today Labs mild elevation of the WBC noted, blood culture showing evidence of gram- negative bacteremia On antibiotic as per ID pain Will continue the IV fluid and will speak to the patient's sister. Overall prognosis guarded. Objective - Vital Signs/Intake and Output Vital Signs (last 24 hours): Temp Pulse Resp BP Pulse Ox 98.3 F 84 20 120/75 97 06/05/18 04:33 06/05/18 04:33 06/05/18 04:33 06/05/18 04:33 06/05/18 04:33 Intake and Output: 06/05/18 06/05/18 06:59 18:59 Intake Total 1225 Output Total 600 Balance 625 - Medications Medications: Current Medications Acetaminophen (Tylenol 325mg Tab) 650 mg PO Q4H PRN PRN Reason: Fever >100.4 F Last Admin: 06/03/18 15:51 Dose: 650 mg Divalproex Sodium (Depakote Sprinkles) 250 mg PO BID [facility] Last Admin: 06/04/18 18:06 Dose: 250 mg Ergocalciferol (Drisdol 50,000 Intl Units Cap) 1 cap PO QWK [facility] Last Admin: 06/03/18 12:00 Dose: 1 cap Famotidine (Pepcid) 20 mg IVP DAILY [facility] Last Admin: 06/04/18 10:34 Dose: 20 mg Meropenem 1 gm/ Sodium (Chloride) 100 mls @ 100 mls/hr IVPB Q12H [facility]; Protocol Last Admin: 06/05/18 06:15 Dose: 100 mls/hr Sodium Chloride (Sodium Chloride 0.9%) 1,000 mls @ 125 mls/hr IV .Q8H [facility] Last Admin: 06/05/18 05:12 Dose: 125 mls/hr Influenza Virus Vaccine (Fluzone Quad [id number]) 60 mcg IM .ONCE ONE Stop: 06/05/18 10:01 Levothyroxine Sodium (Synthroid) 75 mcg PO DAILY@0630 [facility] Last Admin: 06/05/18 06:16 Dose: 75 mcg Memantine (Namenda) 5 mg PO BID [facility] Last Admin: 06/04/18 18:05 Dose: 5 mg Multivitamins/Vitamin C (Multi-Delyn Liquid) 15 ml PO DAILY [facility] Last Admin: 06/04/18 10:36 Dose: 15 ml Risperidone (Risperdal Tab) 0.5 mg PO HS [facility] Last Admin: 06/04/18 23:04 Dose: 0.5 mg - Labs Labs: 06/04/18 08:11 06/04/18 08:11 PT 12.1 SECONDS (9.7-12.2) 06/03/18 05:28 INR 1.1 06/03/18 05:28 APTT 38 SECONDS (21-34) H 06/03/18 05:28
--- NOTE | 2018-06-05 07:32 | CP.PCM.PN ---
Subjective - Date & Time of Evaluation Date of Evaluation: 06/05/18 Time of Evaluation: 07:30 - Subjective Subjective: Patient is morning more awake and responding. But she is somewhat agitated. Sometimes she is refusing. Her intake is very poor. She is on IV fluid. Seen by infectious disease as well as diamond setter. Creatinine is still on the high side. Today labs currently pending On examination: Vital signs stable. Oxygen saturation is normal. Chest good air entry, minimal expiratory wheezing noted Blood culture gram-negative, but ID is pending Assessment: 88-year-old female with a history of bipolar disease, dementia, history of lit hium toxicity in the past admitted now with the gram-negative bacteremia. On antibiotic. Repeat the labs today. On antibiotic. Will closely monitor. And will follow-up the patient. Physical therapy advised Objective - Vital Signs/Intake and Output Vital Signs (last 24 hours): Temp Pulse Resp BP Pulse Ox 98.3 F 84 20 120/75 97 06/05/18 04:33 06/05/18 04:33 06/05/18 04:33 06/05/18 04:33 06/05/18 04:33 Intake and Output: 06/05/18 06/05/18 06:59 18:59 Intake Total 1225 Output Total 600 Balance 625 - Medications Medications: Current Medications Acetaminophen (Tylenol 325mg Tab) 650 mg PO Q4H PRN PRN Reason: Fever >100.4 F Last Admin: 06/03/18 15:51 Dose: 650 mg Divalproex Sodium (Depakote Sprinkles) 250 mg PO BID [facility] Last Admin: 06/04/18 18:06 Dose: 250 mg Ergocalciferol (Drisdol 50,000 Intl Units Cap) 1 cap PO QWK [facility] Last Admin: 06/03/18 12:00 Dose: 1 cap Famotidine (Pepcid) 20 mg IVP DAILY [facility] Last Admin: 06/04/18 10:34 Dose: 20 mg Meropenem 1 gm/ Sodium (Chloride) 100 mls @ 100 mls/hr IVPB Q12H [facility]; Protocol Last Admin: 06/05/18 06:15 Dose: 100 mls/hr Sodium Chloride (Sodium Chloride 0.9%) 1,000 mls @ 125 mls/hr IV .Q8H [facility] Last Admin: 06/05/18 05:12 Dose: 125 mls/hr Influenza Virus Vaccine (Fluzone Quad [id number]) 60 mcg IM .ONCE ONE Stop: 06/05/18 10:01 Levothyroxine Sodium (Synthroid) 75 mcg PO DAILY@0630 [facility] Last Admin: 06/05/18 06:16 Dose: 75 mcg Memantine (Namenda) 5 mg PO BID [facility] Last Admin: 06/04/18 18:05 Dose: 5 mg Multivitamins/Vitamin C (Multi-Delyn Liquid) 15 ml PO DAILY [facility] Last Admin: 06/04/18 10:36 Dose: 15 ml Risperidone (Risperdal Tab) 0.5 mg PO HS [facility] Last Admin: 06/04/18 23:04 Dose: 0.5 mg - Labs Labs: 06/04/18 08:11 06/04/18 08:11 PT 12.1 SECONDS (9.7-12.2) 06/03/18 05:28 INR 1.1 06/03/18 05:28 APTT 38 SECONDS (21-34) H 06/03/18 05:28
[2018-06-05 07:48] LABS: BASO % 0.3 % (0.0-2.0); EOS # 0.2 K/uL (0.0-0.7); EOS % 1.7 % (0.0-4.0); HEMOGLOBIN 9.4 g/dL (11.0-16.0); LYMPH # 0.5 K/uL (1.0-4.3); LYMPH % 5.1 % (20.0-40.0); NEUT # 7.8 K/uL (1.8-7.0); NEUT % 81.9 % (50.0-75.0); PLATELET COUNT 134 K/uL (130-400); RBC 3.05 Mil/uL (3.80-5.20); RED CELL DISTRIBUTION WIDTH 14.7 % (11.5-14.5); WHITE BLOOD COUNT 9.5 K/uL (4.8-10.8)
[2018-06-05 08:20] LABS: ALBUMIN 2.4 g/dL (3.5-5.0)
[2018-06-05 08:56] LABS: BANDS 18 % (0-2); EOSINOPHIL 3 % (0-4); LYMPHOCYTE 2 % (20-40); MONOCYTE 2 % (0-10); MYELOCYTE 1 % (0-0); NEUTROPHIL 74 % (50-75); NUCLEATED RED BLOOD CELL 1 % (0-0); TOTAL CELLS COUNTED 100
[2018-06-05 08:57] LABS: BURR CELLS SLIGHT; OVALOCYTES SLIGHT; PLATELET ESTIMATE NORMAL (NORMAL); POIKILOCYTOSIS SLIGHT
--- NOTE | 2018-06-05 09:44 | CP.PCM.PN ---
Subjective - Date & Time of Evaluation Date of Evaluation: 06/05/18 Time of Evaluation: 09:43 - Subjective Subjective: Ms. Brantley is a 87 year old WF , resident of [place] with PMHx of HTN, Hypothyroidism, and Dementia, Bipolar disease on chronic lithium treatment in the past . pt is being gtreated for Gram negative sepsis, renal function is slowly improving, awake , following simple commands Objective - Vital Signs/Intake and Output Vital Signs (last 24 hours): Temp Pulse Resp BP Pulse Ox 98.1 F 81 18 118/67 97 06/05/18 07:10 06/05/18 07:10 06/05/18 07:10 06/05/18 07:10 06/05/18 07:10 Intake and Output: 06/05/18 06/05/18 06:59 18:59 Intake Total 1225 Output Total 600 Balance 625 - Medications Medications: Current Medications Acetaminophen (Tylenol 325mg Tab) 650 mg PO Q4H PRN PRN Reason: Fever >100.4 F Last Admin: 06/03/18 15:51 Dose: 650 mg Divalproex Sodium (Depakote Sprinkles) 250 mg PO BID [facility] Last Admin: 06/04/18 18:06 Dose: 250 mg Ergocalciferol (Drisdol 50,000 Intl Units Cap) 1 cap PO QWK [facility] Last Admin: 06/03/18 12:00 Dose: 1 cap Famotidine (Pepcid) 20 mg IVP DAILY [facility] Last Admin: 06/04/18 10:34 Dose: 20 mg Heparin Sodium (Porcine) (Heparin) 5,000 units SC Q8 [facility] Meropenem 1 gm/ Sodium (Chloride) 100 mls @ 100 mls/hr IVPB Q12H [facility]; Protocol Last Admin: 06/05/18 06:15 Dose: 100 mls/hr Sodium Chloride (Sodium Chloride 0.9%) 1,000 mls @ 125 mls/hr IV .Q8H [facility] Last Admin: 06/05/18 05:12 Dose: 125 mls/hr Influenza Virus Vaccine (Fluzone Quad [id number]) 60 mcg IM .ONCE ONE Stop: 06/05/18 10:01 Levothyroxine Sodium (Synthroid) 75 mcg PO DAILY@0630 [facility] Last Admin: 06/05/18 06:16 Dose: 75 mcg Memantine (Namenda) 5 mg PO BID [facility] Last Admin: 06/04/18 18:05 Dose: 5 mg Multivitamins/Vitamin C (Multi-Delyn Liquid) 15 ml PO DAILY [facility] Last Admin: 06/04/18 10:36 Dose: 15 ml Pantoprazole Sodium (Protonix Inj) 40 mg IVP DAILY [facility] Risperidone (Risperdal Tab) 0.5 mg PO HS [facility] Last Admin: 06/04/18 23:04 Dose: 0.5 mg - Labs Labs: 06/05/18 07:39 06/05/18 07:39 PT 12.1 SECONDS (9.7-12.2) 06/03/18 05:28 INR 1.1 06/03/18 05:28 APTT 38 SECONDS (21-34) H 06/03/18 05:28 - Constitutional Appears: Well, Non-toxic, No Acute Distress - Head Exam Head Exam: ATRAUMATIC - Eye Exam Eye Exam: EOMI, Normal appearance, PERRL Pupil Exam: NORMAL ACCOMODATION - ENT Exam ENT Exam: Mucous Membranes Moist - Respiratory Exam Respiratory Exam: Clear to Ausculation Bilateral, NORMAL BREATHING PATTERN - Cardiovascular Exam Cardiovascular Exam: REGULAR RHYTHM, +S1, +S2 - GI/Abdominal Exam GI & Abdominal Exam: Soft, Normal Bowel Sounds - Neurological Exam Neurological Exam: Alert, Awake Additional comments: oriented x1 - Psychiatric Exam Psychiatric exam: Flat Affect - Skin Skin Exam: Normal Color, Warm Assessment and Plan - Assessment and Plan (Free Text) Assessment: 88 yo WF with pmh/o htn, hld, hypothyroidism, anxiety, depression, bipolar, s/p fall fx, s/p tx with lithium was admitted with weakness, not participating in routine activities and found to have fever, high wbc, increased bun/cr. base line s.cr is about 1.0, now blood c/s are positive for GNR 1. RACHEL , non oliguric , most likely sec to ATN sec to Gram negative sepsis 2. Gram negative sepsis( GNR), most likely source is the urine 3. Dehydration c/w ivf NS 0.9 % at 100-125 ml/hr c/w iv abx as per ID urine c/s are negative , u/s kidneys wnl bLood c/s is + v efor E. coli, sensitive to all abx renal function is slightly better
[2018-06-05] MEDS ORDERED: Influenza Vaccine 60 MCG/0.5 ML SYR (3 yr & up) IM ONE (10:00)
[2018-06-05] MEDS: Multiple Vitamins Oral Solution PO SCH (11:34)
[2018-06-05] MEDS: Divalproex 125 mg Sprinkle Capsule PO SCH ×2 (11:34→18:59)
--- NOTE | 2018-06-05 17:50 | CP.PCM.PN ---
Subjective - Date & Time of Evaluation Date of Evaluation: 06/05/18 Time of Evaluation: 10:00 - Subjective Subjective: IV rx in progress for Urosepsis switched to rocephin mental status unchanged Objective - Vital Signs/Intake and Output Vital Signs (last 24 hours): Temp Pulse Resp BP Pulse Ox 98.6 F 76 20 124/68 100 06/05/18 15:59 06/05/18 15:59 06/05/18 15:59 06/05/18 15:59 06/05/18 15:59 Intake and Output: 06/05/18 06/05/18 06:59 18:59 Intake Total 1225 1200 Output Total 600 Balance 625 1200 - Medications Medications: Current Medications Acetaminophen (Tylenol 325mg Tab) 650 mg PO Q4H PRN PRN Reason: Fever >100.4 F Last Admin: 06/03/18 15:51 Dose: 650 mg Divalproex Sodium (Depakote Sprinkles) 250 mg PO BID [facility] Last Admin: 06/05/18 11:34 Dose: 250 mg Ergocalciferol (Drisdol 50,000 Intl Units Cap) 1 cap PO QWK [facility] Last Admin: 06/03/18 12:00 Dose: 1 cap Famotidine (Pepcid) 20 mg IVP DAILY [facility] Last Admin: 06/05/18 11:34 Dose: 20 mg Heparin Sodium (Porcine) (Heparin) 5,000 units SC Q8 [facility] Last Admin: 06/05/18 13:58 Dose: 5,000 units Sodium Chloride (Sodium Chloride 0.9%) 1,000 mls @ 125 mls/hr IV .Q8H [facility] Last Admin: 06/05/18 14:00 Dose: 125 mls/hr Ceftriaxone Sodium 2 gm/ (Sodium Chloride) 100 mls @ 100 mls/hr IVPB DAILY [facility]; Protocol Levothyroxine Sodium (Synthroid) 75 mcg PO DAILY@0630 [facility] Last Admin: 06/05/18 06:16 Dose: 75 mcg Memantine (Namenda) 5 mg PO BID [facility] Last Admin: 06/05/18 11:36 Dose: 5 mg Multivitamins/Vitamin C (Multi-Delyn Liquid) 15 ml PO DAILY [facility] Last Admin: 06/05/18 11:34 Dose: 15 ml Pantoprazole Sodium (Protonix Inj) 40 mg IVP DAILY [facility] Last Admin: 06/05/18 11:36 Dose: Not Given Risperidone (Risperdal Tab) 0.5 mg PO HS [facility] Last Admin: 06/04/18 23:04 Dose: 0.5 mg - Labs Labs: 06/05/18 07:39 06/05/18 07:39 PT 12.1 SECONDS (9.7-12.2) 06/03/18 05:28 INR 1.1 06/03/18 05:28 APTT 38 SECONDS (21-34) H 06/03/18 05:28 - Constitutional Appears: Confused, Chronically Ill - Head Exam Head Exam: NORMOCEPHALIC - Eye Exam Eye Exam: absent: Scleral icterus - ENT Exam ENT Exam: Mucous Membranes Dry - Neck Exam Neck Exam: absent: Lymphadenopathy - Respiratory Exam Respiratory Exam: Decreased Breath Sounds - Cardiovascular Exam Cardiovascular Exam: REGULAR RHYTHM - GI/Abdominal Exam GI & Abdominal Exam: Distended, Soft - Rectal Exam Rectal Exam: Deferred - Exam Exam: NORMAL INSPECTION Assessment and Plan (1) Sepsis Status: Acute (2) Sepsis Status: Acute (3) Pneumonia Status: Acute (4) Bipolar disorder Status: Chronic (5) Dementia with behavioral disturbance Status: Chronic
[2018-06-05] MEDS: cefTRIAXone 2 GM in Sodium Chloride 0.9% 100 ML IVPB SCH (20:17)
[2018-06-06] MEDS: Sodium Chloride 0.9% 1,000 ML IV SCH (05:28)
[2018-06-06] MEDS: Levothyroxine 75 MCG TAB PO SCH (05:31)
[2018-06-06 07:33] LABS: BASO % 0.5 % (0.0-2.0); EOS # 0.3 K/uL (0.0-0.7); EOS % 3.4 % (0.0-4.0); HEMOGLOBIN 9.6 g/dL (11.0-16.0); LYMPH # 0.6 K/uL (1.0-4.3); LYMPH % 7.8 % (20.0-40.0); MEAN CELL VOLUME 91.8 fL (81.0-99.0); MEAN CORPUSCULAR HEMOGLOBIN 30.9 pg (27.0-31.0); MEAN CORPUSCULAR HGB CONC 33.6 g/dL (33.0-37.0); MEAN PLATELET VOLUME 7.8 fL (7.2-11.7); MONO # 0.9 K/uL (0.0-0.8); MONO % 11.6 % (0.0-10.0); NEUT # 6.1 K/uL (1.8-7.0); NEUT % 76.7 % (50.0-75.0); PLATELET COUNT 155 K/uL (130-400); RBC 3.11 Mil/uL (3.80-5.20); RED CELL DISTRIBUTION WIDTH 15.1 % (11.5-14.5)
[2018-06-06 07:48] LABS: CALCIUM 8.2 mg/dl (8.6-10.4)
[2018-06-06 08:30] LABS: BANDS 21 % (0-2); EOSINOPHIL 4 % (0-4); LYMPHOCYTE 15 % (20-40); MONOCYTE 6 % (0-10); NEUTROPHIL 54 % (50-75); TOTAL CELLS COUNTED 100
[2018-06-06 08:31] LABS: ANISOCYTOSIS SLIGHT; BURR CELLS SLIGHT; HYPOCHROMIC SLIGHT; PLATELET ESTIMATE NORMAL (NORMAL); POLYCHROMIC SLIGHT
[2018-06-06] MEDS ORDERED: Sodium Chloride 0.9% 1,000 ML IV SCH (08:56)
--- NOTE | 2018-06-06 09:00 | CP.PCM.PN ---
Subjective - Date & Time of Evaluation Date of Evaluation: 06/06/18 Time of Evaluation: 08:57 - Subjective Subjective: pt is more awake and responding she is feeling ok following simple commands No BM yet feels weak very poor eating no fever Temp Pulse Resp BP Pulse Ox 97.2 F L 83 20 128/69 96 06/06/18 08:16 06/06/18 08:16 06/06/18 08:16 06/06/18 08:16 06/06/18 08:16 chest good air entry no wheezing but some cough noted labs noted cr improving BC- ecoli with esbl negative on rocephine continue PT OOB to chair Objective - Vital Signs/Intake and Output Vital Signs (last 24 hours): Temp Pulse Resp BP Pulse Ox 97.2 F L 83 20 128/69 96 06/06/18 08:16 06/06/18 08:16 06/06/18 08:16 06/06/18 08:16 06/06/18 08:16 Intake and Output: 06/06/18 06/06/18 06:59 18:59 Intake Total 1100 Output Total 650 Balance 450 - Medications Medications: Current Medications Acetaminophen (Tylenol 325mg Tab) 650 mg PO Q4H PRN PRN Reason: Fever >100.4 F Last Admin: 06/03/18 15:51 Dose: 650 mg Divalproex Sodium (Depakote Sprinkles) 250 mg PO BID [facility] Last Admin: 06/05/18 18:59 Dose: 250 mg Ergocalciferol (Drisdol 50,000 Intl Units Cap) 1 cap PO QWK [facility] Last Admin: 06/03/18 12:00 Dose: 1 cap Famotidine (Pepcid) 20 mg IVP DAILY [facility] Last Admin: 06/05/18 11:34 Dose: 20 mg Heparin Sodium (Porcine) (Heparin) 5,000 units SC Q8 [facility] Last Admin: 06/06/18 05:26 Dose: 5,000 units Ceftriaxone Sodium 2 gm/ (Sodium Chloride) 100 mls @ 100 mls/hr IVPB Q24H [facility]; Protocol Last Admin: 06/05/18 20:17 Dose: 100 mls/hr Sodium Chloride (Sodium Chloride 0.9%) 1,000 mls @ 80 mls/hr IV .[id number] [facility] Levothyroxine Sodium (Synthroid) 75 mcg PO DAILY@0630 [facility] Last Admin: 06/06/18 05:31 Dose: 75 mcg Memantine (Namenda) 5 mg PO BID [facility] Last Admin: 06/05/18 18:59 Dose: 5 mg Multivitamins/Vitamin C (Multi-Delyn Liquid) 15 ml PO DAILY [facility] Last Admin: 06/05/18 11:34 Dose: 15 ml Pantoprazole Sodium (Protonix Inj) 40 mg IVP DAILY [facility] Last Admin: 06/05/18 11:36 Dose: Not Given Risperidone (Risperdal Tab) 0.5 mg PO HS [facility] Last Admin: 06/05/18 21:49 Dose: 0.5 mg - Labs Labs: 06/06/18 07:25 06/06/18 07:25 PT 12.1 SECONDS (9.7-12.2) 06/03/18 05:28 INR 1.1 06/03/18 05:28 APTT 38 SECONDS (21-34) H 06/03/18 05:28
[2018-06-06] MEDS: Multiple Vitamins Oral Solution PO SCH (09:35)
[2018-06-06] MEDS: Divalproex 125 mg Sprinkle Capsule PO SCH ×2 (09:36→18:30)
--- NOTE | 2018-06-06 12:11 | CP.PCM.PN ---
Subjective - Date & Time of Evaluation Date of Evaluation: 06/06/18 Time of Evaluation: 12:11 - Subjective Subjective: pt is not in acute distress, confused, good uop Objective - Vital Signs/Intake and Output Vital Signs (last 24 hours): Temp Pulse Resp BP Pulse Ox 97.2 F L 83 20 128/69 96 06/06/18 08:16 06/06/18 08:16 06/06/18 08:16 06/06/18 08:16 06/06/18 08:16 Intake and Output: 06/06/18 06/06/18 06:59 18:59 Intake Total 1100 Output Total 650 Balance 450 - Medications Medications: Current Medications Acetaminophen (Tylenol 325mg Tab) 650 mg PO Q4H PRN PRN Reason: Fever >100.4 F Last Admin: 06/03/18 15:51 Dose: 650 mg Divalproex Sodium (Depakote Sprinkles) 250 mg PO BID [facility] Last Admin: 06/06/18 09:36 Dose: 250 mg Ergocalciferol (Drisdol 50,000 Intl Units Cap) 1 cap PO QWK [facility] Last Admin: 06/03/18 12:00 Dose: 1 cap Famotidine (Pepcid) 20 mg IVP DAILY [facility] Last Admin: 06/06/18 09:36 Dose: 20 mg Heparin Sodium (Porcine) (Heparin) 5,000 units SC Q8 [facility] Last Admin: 06/06/18 05:26 Dose: 5,000 units Ceftriaxone Sodium 2 gm/ (Sodium Chloride) 100 mls @ 100 mls/hr IVPB Q24H [facility]; Protocol Last Admin: 06/05/18 20:17 Dose: 100 mls/hr Sodium Chloride (Sodium Chloride 0.9%) 1,000 mls @ 80 mls/hr IV .[id number] [facility] Last Admin: 06/06/18 09:36 Dose: 80 mls/hr Levothyroxine Sodium (Synthroid) 75 mcg PO DAILY@0630 [facility] Last Admin: 06/06/18 05:31 Dose: 75 mcg Memantine (Namenda) 5 mg PO BID [facility] Last Admin: 06/06/18 09:36 Dose: 5 mg Multivitamins/Vitamin C (Multi-Delyn Liquid) 15 ml PO DAILY [facility] Last Admin: 06/06/18 09:35 Dose: 15 ml Pantoprazole Sodium (Protonix Inj) 40 mg IVP DAILY [facility] Last Admin: 06/06/18 09:35 Dose: 40 mg Risperidone (Risperdal Tab) 0.5 mg PO HS [facility] Last Admin: 06/05/18 21:49 Dose: 0.5 mg - Labs Labs: 06/06/18 07:25 06/06/18 07:25 PT 12.1 SECONDS (9.7-12.2) 06/03/18 05:28 INR 1.1 06/03/18 05:28 APTT 38 SECONDS (21-34) H 06/03/18 05:28 - Constitutional Appears: Well, No Acute Distress - Head Exam Head Exam: ATRAUMATIC - Eye Exam Eye Exam: EOMI, Normal appearance, PERRL Pupil Exam: NORMAL ACCOMODATION - ENT Exam ENT Exam: Mucous Membranes Moist - Neck Exam Neck Exam: Full ROM - Respiratory Exam Respiratory Exam: Clear to Ausculation Bilateral, NORMAL BREATHING PATTERN - Cardiovascular Exam Cardiovascular Exam: REGULAR RHYTHM, +S1, +S2 - Rectal Exam Rectal Exam: Deferred - Extremities Exam Additional comments: no edema - Neurological Exam Neurological Exam: Altered, Awake, CN II-XII Intact - Skin Skin Exam: Normal Color Assessment and Plan - Assessment and Plan (Free Text) Assessment: 88 yo WF with pmh/o htn, hld, hypothyroidism, anxiety, depression, bipolar, s/p fall fx, s/p tx with lithium was admitted with weakness, not participating in routine activities and found to have fever, high wbc, increased bun/cr. base line s.cr is about 1.0, now blood c/s are positive for GNR 1. RACHEL , non oliguric , most likely sec to ATN sec to Gram negative sepsis 2. Gram negative sepsis ( GNR), most likely source is the urine 3. Dehydration c/w ivf NS 0.9 % at 100-125 ml/hr c/w iv abx as per ID urine c/s are negative , u/s kidneys wnl bLood c/s is + ve for E. coli, sensitive to all abx renal function is slowly improving, s.cr 3.1 today check bmp daily
[2018-06-06] MEDS: cefTRIAXone 2 GM in Sodium Chloride 0.9% 100 ML IVPB SCH (18:30)
--- NOTE | 2018-06-06 18:39 | CP.PCM.PN ---
Subjective - Date & Time of Evaluation Date of Evaluation: 06/06/18 Time of Evaluation: 10:00 - Subjective Subjective: AWAKE ALERT LESS CONFUSED NAD Objective - Vital Signs/Intake and Output Vital Signs (last 24 hours): Temp Pulse Resp BP Pulse Ox 97.5 F L 67 20 121/63 100 06/06/18 15:35 06/06/18 15:35 06/06/18 15:35 06/06/18 15:35 06/06/18 15:35 Intake and Output: 06/06/18 06/06/18 06:59 18:59 Intake Total 1100 640 Output Total 650 300 Balance 450 340 - Medications Medications: Current Medications Acetaminophen (Tylenol 325mg Tab) 650 mg PO Q4H PRN PRN Reason: Fever >100.4 F Last Admin: 06/03/18 15:51 Dose: 650 mg Divalproex Sodium (Depakote Sprinkles) 250 mg PO BID [facility] Last Admin: 06/06/18 09:36 Dose: 250 mg Ergocalciferol (Drisdol 50,000 Intl Units Cap) 1 cap PO QWK [facility] Last Admin: 06/03/18 12:00 Dose: 1 cap Famotidine (Pepcid) 20 mg IVP DAILY [facility] Last Admin: 06/06/18 09:36 Dose: 20 mg Heparin Sodium (Porcine) (Heparin) 5,000 units SC Q8 [facility] Last Admin: 06/06/18 14:06 Dose: 5,000 units Ceftriaxone Sodium 2 gm/ (Sodium Chloride) 100 mls @ 100 mls/hr IVPB Q24H [facility]; Protocol Last Admin: 06/05/18 20:17 Dose: 100 mls/hr Sodium Chloride (Sodium Chloride 0.9%) 1,000 mls @ 80 mls/hr IV .[id number] [facility] Last Admin: 06/06/18 09:36 Dose: 80 mls/hr Levothyroxine Sodium (Synthroid) 75 mcg PO DAILY@0630 [facility] Last Admin: 06/06/18 05:31 Dose: 75 mcg Memantine (Namenda) 5 mg PO BID [facility] Last Admin: 06/06/18 09:36 Dose: 5 mg Multivitamins/Vitamin C (Multi-Delyn Liquid) 15 ml PO DAILY [facility] Last Admin: 06/06/18 09:35 Dose: 15 ml Pantoprazole Sodium (Protonix Inj) 40 mg IVP DAILY [facility] Last Admin: 06/06/18 09:35 Dose: 40 mg Risperidone (Risperdal Tab) 0.5 mg PO HS [facility] Last Admin: 06/05/18 21:49 Dose: 0.5 mg - Labs Labs: 06/06/18 07:25 06/06/18 07:25 PT 12.1 SECONDS (9.7-12.2) 06/03/18 05:28 INR 1.1 06/03/18 05:28 APTT 38 SECONDS (21-34) H 06/03/18 05:28 - Constitutional Appears: Non-toxic, Chronically Ill - Head Exam Head Exam: NORMOCEPHALIC - Eye Exam Eye Exam: absent: Scleral icterus - ENT Exam ENT Exam: Mucous Membranes Dry - Neck Exam Neck Exam: absent: Lymphadenopathy - Respiratory Exam Respiratory Exam: Decreased Breath Sounds - Cardiovascular Exam Cardiovascular Exam: REGULAR RHYTHM - GI/Abdominal Exam GI & Abdominal Exam: Distended Assessment and Plan (1) Sepsis Status: Acute (2) Sepsis Status: Acute (3) Pneumonia Status: Acute (4) Bipolar disorder Status: Chronic (5) Dementia with behavioral disturbance Status: Chronic - Assessment and Plan (Free Text) Assessment: E COLI SEPSIS CONT IV RX FOR UTI Plan: MAY NEED 14 DAYS RX
[2018-06-07] MEDS: Levothyroxine 75 MCG TAB PO SCH (05:32)
[2018-06-07 07:21] LABS: ALBUMIN 2.6 g/dL (3.5-5.0); CALCIUM 8.3 mg/dl (8.6-10.4)
[2018-06-07 07:31] LABS: BASO % 0.4 % (0.0-2.0); EOS # 0.3 K/uL (0.0-0.7); EOS % 2.9 % (0.0-4.0); HEMOGLOBIN 10.1 g/dL (11.0-16.0); LYMPH # 1.2 K/uL (1.0-4.3); LYMPH % 12.7 % (20.0-40.0); MEAN CELL VOLUME 91.3 fL (81.0-99.0); MEAN CORPUSCULAR HEMOGLOBIN 30.1 pg (27.0-31.0); MEAN PLATELET VOLUME 7.5 fL (7.2-11.7); MONO # 1.1 K/uL (0.0-0.8); MONO % 12.3 % (0.0-10.0); NEUT # 6.7 K/uL (1.8-7.0); NEUT % 71.7 % (50.0-75.0); RBC 3.35 Mil/uL (3.80-5.20); WHITE BLOOD COUNT 9.3 K/uL (4.8-10.8)
--- NOTE | 2018-06-07 08:20 | CP.PCM.PN ---
Subjective - Date & Time of Evaluation Date of Evaluation: 06/07/18 Time of Evaluation: 08:17 - Subjective Subjective: pt is doing well feeling hungry no fever now no chest pain on IVF urine improving pt is still in the bed will keep OOB PT feed with assistance on antibiotic will f/u Objective - Vital Signs/Intake and Output Vital Signs (last 24 hours): Temp Pulse Resp BP Pulse Ox 98.0 F 76 18 138/72 98 06/07/18 07:45 06/07/18 07:45 06/07/18 07:45 06/07/18 07:45 06/07/18 07:45 Intake and Output: 06/07/18 06/07/18 06:59 18:59 Intake Total 640 880 Output Total 550 350 Balance 90 530 - Medications Medications: Current Medications Acetaminophen (Tylenol 325mg Tab) 650 mg PO Q4H PRN PRN Reason: Fever >100.4 F Last Admin: 06/03/18 15:51 Dose: 650 mg Divalproex Sodium (Depakote Sprinkles) 250 mg PO BID [facility] Last Admin: 06/06/18 18:30 Dose: 250 mg Ergocalciferol (Drisdol 50,000 Intl Units Cap) 1 cap PO QWK [facility] Last Admin: 06/03/18 12:00 Dose: 1 cap Famotidine (Pepcid) 20 mg PO DAILY [facility] Heparin Sodium (Porcine) (Heparin) 5,000 units SC Q8 [facility] Last Admin: 06/07/18 05:31 Dose: 5,000 units Ceftriaxone Sodium 2 gm/ (Sodium Chloride) 100 mls @ 100 mls/hr IVPB Q24H [facility]; Protocol Last Admin: 06/06/18 18:30 Dose: 100 mls/hr Sodium Chloride (Sodium Chloride 0.9%) 1,000 mls @ 60 mls/hr IV .[id number] [facility] Levothyroxine Sodium (Synthroid) 75 mcg PO DAILY@0630 [facility] Last Admin: 06/07/18 05:32 Dose: 75 mcg Memantine (Namenda) 5 mg PO BID [facility] Last Admin: 06/06/18 18:30 Dose: 5 mg Multivitamins/Vitamin C (Multi-Delyn Liquid) 15 ml PO DAILY [facility] Last Admin: 06/06/18 09:35 Dose: 15 ml Pantoprazole Sodium (Protonix Inj) 40 mg IVP DAILY [facility] Last Admin: 06/06/18 09:35 Dose: 40 mg Risperidone (Risperdal Tab) 0.5 mg PO HS [facility] Last Admin: 06/06/18 22:32 Dose: 0.5 mg - Labs Labs: 06/07/18 06:51 06/07/18 06:51 PT 12.1 SECONDS (9.7-12.2) 06/03/18 05:28 INR 1.1 06/03/18 05:28 APTT 38 SECONDS (21-34) H 06/03/18 05:28
[2018-06-07] MEDS ORDERED: Sodium Chloride 0.9% 1,000 ML IV SCH (09:00)
[2018-06-07] MEDS: Divalproex 125 mg Sprinkle Capsule PO SCH ×2 (09:42→18:07)
[2018-06-07] MEDS: Multiple Vitamins Oral Solution PO SCH (09:42)
--- NOTE | 2018-06-07 13:38 | CP.PCM.PN ---
Subjective - Date & Time of Evaluation Date of Evaluation: 06/07/18 Time of Evaluation: 13:38 - Subjective Subjective: pt is c/o not feeling well yet, decreased po intake, no cp, no abd.pain good uop, no edema of legs Objective - Vital Signs/Intake and Output Vital Signs (last 24 hours): Temp Pulse Resp BP Pulse Ox 98.0 F 76 18 138/72 98 06/07/18 07:45 06/07/18 07:45 06/07/18 07:45 06/07/18 07:45 06/07/18 07:45 Intake and Output: 06/07/18 06/07/18 06:59 18:59 Intake Total 640 880 Output Total 550 350 Balance 90 530 - Medications Medications: Current Medications Acetaminophen (Tylenol 325mg Tab) 650 mg PO Q4H PRN PRN Reason: Fever >100.4 F Last Admin: 06/03/18 15:51 Dose: 650 mg Divalproex Sodium (Depakote Sprinkles) 250 mg PO BID [facility] Last Admin: 06/07/18 09:42 Dose: 250 mg Ergocalciferol (Drisdol 50,000 Intl Units Cap) 1 cap PO QWK [facility] Last Admin: 06/03/18 12:00 Dose: 1 cap Famotidine (Pepcid) 20 mg PO DAILY [facility] Last Admin: 06/07/18 09:41 Dose: 20 mg Heparin Sodium (Porcine) (Heparin) 5,000 units SC Q8 [facility] Last Admin: 06/07/18 13:20 Dose: 5,000 units Ceftriaxone Sodium 2 gm/ (Sodium Chloride) 100 mls @ 100 mls/hr IVPB Q24H [facility]; Protocol Last Admin: 06/06/18 18:30 Dose: 100 mls/hr Dextrose/Sodium Chloride (Dextrose 5%/0.45% Ns 1000 Ml) 1,000 mls @ 70 mls/hr IV .[id number] [facility] Stop: 06/09/18 13:46 Levothyroxine Sodium (Synthroid) 75 mcg PO DAILY@0630 [facility] Last Admin: 06/07/18 05:32 Dose: 75 mcg Memantine (Namenda) 5 mg PO BID [facility] Last Admin: 06/07/18 10:10 Dose: 5 mg Multivitamins/Vitamin C (Multi-Delyn Liquid) 15 ml PO DAILY [facility] Last Admin: 06/07/18 09:42 Dose: 15 ml Pantoprazole Sodium (Protonix Inj) 40 mg IVP DAILY [facility] Last Admin: 06/07/18 09:41 Dose: 40 mg Risperidone (Risperdal Tab) 0.5 mg PO HS [facility] Last Admin: 06/06/18 22:32 Dose: 0.5 mg - Labs Labs: 06/07/18 06:51 06/07/18 06:51 PT 12.1 SECONDS (9.7-12.2) 06/03/18 05:28 INR 1.1 06/03/18 05:28 APTT 38 SECONDS (21-34) H 06/03/18 05:28 - Constitutional Appears: Well, Non-toxic, No Acute Distress - Head Exam Head Exam: ATRAUMATIC, NORMAL INSPECTION - Eye Exam Eye Exam: EOMI, Normal appearance, PERRL Pupil Exam: NORMAL ACCOMODATION - ENT Exam ENT Exam: Mucous Membranes Moist - Neck Exam Neck Exam: Full ROM - Respiratory Exam Respiratory Exam: Clear to Ausculation Bilateral, NORMAL BREATHING PATTERN - Cardiovascular Exam Cardiovascular Exam: REGULAR RHYTHM, +S1, +S2 - GI/Abdominal Exam GI & Abdominal Exam: Soft, Normal Bowel Sounds - Rectal Exam Rectal Exam: Deferred - Extremities Exam Additional comments: no edema of legs - Neurological Exam Neurological Exam: Alert, Awake, CN II-XII Intact Additional comments: oriented x2 - Skin Skin Exam: Normal Color, Warm Assessment and Plan - Assessment and Plan (Free Text) Assessment: 88 yo WF with pmh/o htn, hld, hypothyroidism, anxiety, depression, bipolar, s/p fall fx, s/p tx with lithium was admitted with weakness, not participating in routine activities and found to have fever, high wbc, increased bun/cr. base line s.cr is about 1.0, now blood c/s are positive for GNR 1. RACHEL , non oliguric , most likely sec to ATN sec to Gram negative sepsis 2. Gram negative sepsis ( GNR), identified as E. coli, most likely source is the urine 3. Dehydration 4. Hyperchloremic met.acidosis 5. Hypernatremia c/w iv abx as per ID will change iv fluids to d5 1/2 ns at 70 ml/hr urine c/s are negative , u/s kidneys wnl bLood c/s is + ve for E. coli, sensitive to all abx renal function is slowly improving, s.cr 3.1 today check bmp daily
[2018-06-07] MEDS: Dextrose 5%/0.45% NS 1,000 ML IV SCH (14:46)
[2018-06-07] MEDS: cefTRIAXone 2 GM in Sodium Chloride 0.9% 100 ML IVPB SCH (18:07)
[2018-06-08] MEDS: Dextrose 5%/0.45% NS 1,000 ML IV SCH ×2 (05:04→21:38)
[2018-06-08] MEDS: Levothyroxine 75 MCG TAB PO SCH (06:02)
[2018-06-08 08:36] LABS: BASO % 0.3 % (0.0-2.0); EOS # 0.3 K/uL (0.0-0.7); EOS % 2.3 % (0.0-4.0); HEMOGLOBIN 10.4 g/dL (11.0-16.0); LYMPH # 1.1 K/uL (1.0-4.3); LYMPH % 9.3 % (20.0-40.0); MEAN CELL VOLUME 90.9 fL (81.0-99.0); MEAN CORPUSCULAR HEMOGLOBIN 30.5 pg (27.0-31.0); MEAN CORPUSCULAR HGB CONC 33.5 g/dL (33.0-37.0); MEAN PLATELET VOLUME 7.1 fL (7.2-11.7); NEUT # 9.6 K/uL (1.8-7.0); NEUT % 80.1 % (50.0-75.0); NRBC % 0.1 % (0.0-2.0); PLATELET COUNT 238 K/uL (130-400); WHITE BLOOD COUNT 11.9 K/uL (4.8-10.8)
[2018-06-08 09:12] LABS: ALBUMIN 2.6 g/dL (3.5-5.0); CALCIUM 8.6 mg/dl (8.6-10.4)
[2018-06-08 09:13] LABS: ALB/GLOB RATIO 0.9 (1.0-2.1)
[2018-06-08 09:44] LABS: BANDS 8 % (0-2); EOSINOPHIL 3 % (0-4); LYMPHOCYTE 6 % (20-40); MONOCYTE 6 % (0-10); NEUTROPHIL 77 % (50-75); TOTAL CELLS COUNTED 100
[2018-06-08 09:45] LABS: ANISOCYTOSIS MODERATE; BURR CELLS SLIGHT; HYPOCHROMIC SLIGHT; OVALOCYTES SLIGHT; PLATELET ESTIMATE NORMAL (NORMAL); POIKILOCYTOSIS SLIGHT; POLYCHROMIC SLIGHT
[2018-06-08 09:46] LABS: TOXIC GRANULATION PRESENT
[2018-06-08] MEDS: Multiple Vitamins Oral Solution PO SCH (09:52)
[2018-06-08] MEDS: Divalproex 125 mg Sprinkle Capsule PO SCH ×2 (09:52→17:32)
--- NOTE | 2018-06-08 13:46 | CP.PCM.PN ---
Subjective - Date & Time of Evaluation Date of Evaluation: 06/08/18 Time of Evaluation: 13:46 - Subjective Subjective: pt is c/o not feeling well yet, decreased po intake, no cp, no abd.pain good uop, no edema of legs, pt is confused, wants to go home Objective - Vital Signs/Intake and Output Vital Signs (last 24 hours): Temp Pulse Resp BP Pulse Ox 97.7 F 82 18 161/80 H 99 06/08/18 08:36 06/08/18 08:36 06/08/18 08:36 06/08/18 08:36 06/08/18 08:36 Intake and Output: 06/08/18 06/08/18 06:59 18:59 Intake Total Output Total Balance - Medications Medications: Current Medications Acetaminophen (Tylenol 325mg Tab) 650 mg PO Q4H PRN PRN Reason: Fever >100.4 F Last Admin: 06/03/18 15:51 Dose: 650 mg Divalproex Sodium (Depakote Sprinkles) 250 mg PO BID [facility] Last Admin: 06/08/18 09:52 Dose: 250 mg Ergocalciferol (Drisdol 50,000 Intl Units Cap) 1 cap PO QWK [facility] Last Admin: 06/03/18 12:00 Dose: 1 cap Famotidine (Pepcid) 20 mg PO DAILY [facility] Last Admin: 06/08/18 09:53 Dose: 20 mg Heparin Sodium (Porcine) (Heparin) 5,000 units SC Q8 [facility] Last Admin: 06/08/18 13:33 Dose: 5,000 units Ceftriaxone Sodium 2 gm/ (Sodium Chloride) 100 mls @ 100 mls/hr IVPB Q24H [facility]; Protocol Last Admin: 06/07/18 18:07 Dose: 100 mls/hr Dextrose/Sodium Chloride (Dextrose 5%/0.45% Ns 1000 Ml) 1,000 mls @ 70 mls/hr IV .[id number] [facility] Stop: 06/09/18 13:46 Last Admin: 06/08/18 05:04 Dose: 70 mls/hr Levothyroxine Sodium (Synthroid) 75 mcg PO DAILY@0630 [facility] Last Admin: 06/08/18 06:02 Dose: 75 mcg Memantine (Namenda) 5 mg PO BID [facility] Last Admin: 06/08/18 09:52 Dose: 5 mg Multivitamins (Hexavitamin) 1 tab PO DAILY [facility] Pantoprazole Sodium (Protonix [facility] Tab) 40 mg PO DAILY [facility] Risperidone (Risperdal Tab) 0.5 mg PO HS [facility] Last Admin: 06/07/18 21:32 Dose: 0.5 mg - Labs Labs: 06/08/18 08:27 06/08/18 08:27 PT 12.1 SECONDS (9.7-12.2) 06/03/18 05:28 INR 1.1 06/03/18 05:28 APTT 38 SECONDS (21-34) H 06/03/18 05:28 - Constitutional Appears: Well, Non-toxic, No Acute Distress - Head Exam Head Exam: ATRAUMATIC, NORMAL INSPECTION, NORMOCEPHALIC - Eye Exam Eye Exam: EOMI, Normal appearance, PERRL Pupil Exam: NORMAL ACCOMODATION - ENT Exam ENT Exam: Mucous Membranes Moist - Neck Exam Neck Exam: Full ROM, Normal Inspection - GI/Abdominal Exam GI & Abdominal Exam: Soft, Normal Bowel Sounds - Rectal Exam Rectal Exam: Deferred - Neurological Exam Neurological Exam: Altered, Awake, CN II-XII Intact Additional comments: confused, oriented x 1-2 - Psychiatric Exam Psychiatric exam: Flat Affect - Skin Skin Exam: Intact, Normal Color, Warm Assessment and Plan - Assessment and Plan (Free Text) Assessment: 88 yo WF with pmh/o htn, hld, hypothyroidism, anxiety, depression, bipolar, s/p fall fx, s/p tx with lithium was admitted with weakness, not participating in routine activities and found to have fever, high wbc, increased bun/cr. base line s.cr is about 1.0, now blood c/s are positive for GNR 1. RACHEL , non oliguric , most likely sec to ATN sec to Gram negative sepsis 2. Gram negative sepsis ( GNR), identified as E. coli, most likely source is the urine 3. Dehydration 4. Hyperchloremic met.acidosis 5. Hypernatremia c/w iv abx as per ID will change iv fluids to d5 1/2 ns at 70 ml/hr. urine c/s are negative , u/s kidneys wnl blood c/s is + ve for E. coli, sensitive to all abx renal function is slowly improving, s.cr 3.1---->2.6 today heck bmp daily met. acidosis is improving
--- NOTE | 2018-06-08 15:34 | CP.PCM.PN ---
Subjective - Date & Time of Evaluation Date of Evaluation: 06/08/18 Time of Evaluation: 09:00 - Subjective Subjective: arousable confusd iv rx renewed Objective - Vital Signs/Intake and Output Vital Signs (last 24 hours): Temp Pulse Resp BP Pulse Ox 97.7 F 82 18 161/80 H 99 06/08/18 08:36 06/08/18 08:36 06/08/18 08:36 06/08/18 08:36 06/08/18 08:36 Intake and Output: 06/08/18 06/08/18 06:59 18:59 Intake Total Output Total Balance - Medications Medications: Current Medications Acetaminophen (Tylenol 325mg Tab) 650 mg PO Q4H PRN PRN Reason: Fever >100.4 F Last Admin: 06/03/18 15:51 Dose: 650 mg Divalproex Sodium (Depakote Sprinkles) 250 mg PO BID [facility] Last Admin: 06/08/18 09:52 Dose: 250 mg Ergocalciferol (Drisdol 50,000 Intl Units Cap) 1 cap PO QWK [facility] Last Admin: 06/03/18 12:00 Dose: 1 cap Famotidine (Pepcid) 20 mg PO DAILY [facility] Last Admin: 06/08/18 09:53 Dose: 20 mg Ceftriaxone Sodium 2 gm/ (Sodium Chloride) 100 mls @ 100 mls/hr IVPB Q24H [facility]; Protocol Last Admin: 06/07/18 18:07 Dose: 100 mls/hr Dextrose/Sodium Chloride (Dextrose 5%/0.45% Ns 1000 Ml) 1,000 mls @ 70 mls/hr IV .[id number] [facility] Stop: 06/09/18 13:46 Last Admin: 06/08/18 05:04 Dose: 70 mls/hr Levothyroxine Sodium (Synthroid) 75 mcg PO DAILY@0630 [facility] Last Admin: 06/08/18 06:02 Dose: 75 mcg Memantine (Namenda) 5 mg PO BID [facility] Last Admin: 06/08/18 09:52 Dose: 5 mg Multivitamins (Hexavitamin) 1 tab PO DAILY [facility] Pantoprazole Sodium (Protonix Ec Tab) 40 mg PO DAILY [facility] Risperidone (Risperdal Tab) 0.5 mg PO HS [facility] Last Admin: 11/03/18 21:32 Dose: 0.5 mg - Labs Labs: 06/08/18 08:27 06/08/18 08:27 PT 12.1 SECONDS (9.7-12.2) 06/03/18 05:28 INR 1.1 06/03/18 05:28 APTT 38 SECONDS (21-34) H 06/03/18 05:28 - Constitutional Appears: Non-toxic, Chronically Ill - Head Exam Head Exam: NORMOCEPHALIC - Eye Exam Eye Exam: PERRL - ENT Exam ENT Exam: Mucous Membranes Dry - Neck Exam Neck Exam: absent: Lymphadenopathy - Respiratory Exam Respiratory Exam: Decreased Breath Sounds - Cardiovascular Exam Cardiovascular Exam: REGULAR RHYTHM - GI/Abdominal Exam GI & Abdominal Exam: Distended Assessment and Plan (1) Sepsis Status: Acute (2) Sepsis Status: Acute (3) Pneumonia Status: Acute (4) Bipolar disorder Status: Chronic (5) Dementia with behavioral disturbance Status: Chronic - Assessment and Plan (Free Text) Assessment: cont iv rx for 14 days for e coli sepsis
[2018-06-08] MEDS: cefTRIAXone 2 GM in Sodium Chloride 0.9% 100 ML IVPB SCH (17:33)
[2018-06-09] MEDS: Levothyroxine 75 MCG TAB PO SCH (05:35)
[2018-06-09 07:29] LABS: BASO # 0.1 K/uL (0.0-0.2); BASO % 0.4 % (0.0-2.0); EOS # 0.4 K/uL (0.0-0.7); EOS % 2.9 % (0.0-4.0); HEMOGLOBIN 8.9 g/dL (11.0-16.0); LYMPH # 1.4 K/uL (1.0-4.3); LYMPH % 10.8 % (20.0-40.0); MEAN CORPUSCULAR HEMOGLOBIN 30.4 pg (27.0-31.0); MEAN CORPUSCULAR HGB CONC 33.4 g/dL (33.0-37.0); MEAN PLATELET VOLUME 7.1 fL (7.2-11.7); MONO # 0.9 K/uL (0.0-0.8); MONO % 7.1 % (0.0-10.0); NEUT # 10.5 K/uL (1.8-7.0); NEUT % 78.8 % (50.0-75.0); NRBC % 0.1 % (0.0-2.0); PLATELET COUNT 264 K/uL (130-400); RBC 2.93 Mil/uL (3.80-5.20); RED CELL DISTRIBUTION WIDTH 14.8 % (11.5-14.5); WHITE BLOOD COUNT 13.4 K/uL (4.8-10.8)
[2018-06-09 08:27] LABS: ALB/GLOB RATIO 0.9 (1.0-2.1); ALBUMIN 2.2 g/dL (3.5-5.0); CALCIUM 8.4 mg/dl (8.6-10.4)
[2018-06-09 09:29] LABS: BANDS 2 % (0-2); EOSINOPHIL 2 % (0-4); LYMPHOCYTE 11 % (20-40); METAMYELOCYTE 1 % (0-0); MONOCYTE 3 % (0-10); MYELOCYTE 1 % (0-0); NEUTROPHIL 80 % (50-75); TOTAL CELLS COUNTED 100
[2018-06-09 09:30] LABS: ANISOCYTOSIS SLIGHT; BURR CELLS SLIGHT; HYPOCHROMIC SLIGHT; PLATELET ESTIMATE NORMAL (NORMAL); POIKILOCYTOSIS SLIGHT
[2018-06-09] MEDS ORDERED: Potassium Chloride 20 mEq/15 ml LIQ UD PO ONE (09:30)
[2018-06-09 09:31] LABS: OVALOCYTES SLIGHT; TEARDROP CELLS SLIGHT; TOXIC GRANULATION PRESENT
[2018-06-09] MEDS: Divalproex 125 mg Sprinkle Capsule PO SCH ×2 (10:02→17:34)
[2018-06-09] MEDS: Pantoprazole 40 mg EC Tab PO SCH (10:03)
[2018-06-09] MEDS: Multiple Vitamins Tab PO SCH (10:03)
[2018-06-09] MEDS: Dextrose 5%/0.45% NS 1,000 ML IV SCH (11:26)
--- NOTE | 2018-06-09 14:56 | CP.PCM.PCO ---
Physician Communication Note - Physician Communication Note Physician Communication Note: need total of 14 days of antibiotics as per Dr. Beverly
--- NOTE | 2018-06-09 15:34 | RAD ---
Date of service: 06/09/2018 HISTORY: Verify right PICC COMPARISON: No prior. FINDINGS: Interval placement right-sided PICC line with tip in the SVC/RA junction LUNGS: Mild central pulmonary venous congestive changes with patchy infiltrate left lower lobe and left-sided effusion. Suspect minor right basilar atelectasis. PLEURA: As above. No pneumothorax apparent. CARDIOVASCULAR: Minor aortic atherosclerotic calcification present. Normal cardiac size. No pulmonary vascular congestion. OSSEOUS STRUCTURES: No significant abnormalities. VISUALIZED UPPER ABDOMEN: Normal. OTHER FINDINGS: None. IMPRESSION: In situ right-sided PICC line as described. Mild central pulmonary venous congestive changes with patchy infiltrate left lower lobe and left-sided effusion. Suspect minor right basilar atelectasis.
[2018-06-09] MEDS: cefTRIAXone 2 GM in Sodium Chloride 0.9% 100 ML IVPB SCH (17:35)
--- NOTE | 2018-06-09 17:51 | CP.PCM.PN ---
Subjective - Date & Time of Evaluation Date of Evaluation: 06/09/18 Time of Evaluation: 17:50 - Subjective Subjective: pt is feeling better, no complaints, more cooperative, no sob, poor po intake Objective - Vital Signs/Intake and Output Vital Signs (last 24 hours): Temp Pulse Resp BP Pulse Ox 97.7 F 76 18 136/65 98 06/09/18 08:11 06/09/18 08:11 06/09/18 08:11 06/09/18 08:11 06/09/18 08:11 Intake and Output: 06/09/18 06/09/18 06:59 18:59 Intake Total 660 Output Total 1350 300 Balance -690 -300 - Medications Medications: Current Medications Acetaminophen (Tylenol 325mg Tab) 650 mg PO Q4H PRN PRN Reason: Fever >100.4 F Last Admin: 06/03/18 15:51 Dose: 650 mg Divalproex Sodium (Depakote Sprinkles) 250 mg PO BID [facility] Last Admin: 06/09/18 17:34 Dose: 250 mg Ergocalciferol (Drisdol 50,000 Intl Units Cap) 1 cap PO QWK [facility] Last Admin: 06/03/18 12:00 Dose: 1 cap Famotidine (Pepcid) 20 mg PO DAILY [facility] Last Admin: 06/09/18 10:03 Dose: 20 mg Ceftriaxone Sodium 2 gm/ (Sodium Chloride) 100 mls @ 100 mls/hr IVPB Q24H [facility]; Protocol Last Admin: 06/09/18 17:35 Dose: 100 mls/hr Levothyroxine Sodium (Synthroid) 75 mcg PO DAILY@0630 [facility] Last Admin: 06/09/18 05:35 Dose: 75 mcg Memantine (Namenda) 5 mg PO BID [facility] Last Admin: 06/09/18 17:34 Dose: 5 mg Multivitamins (Hexavitamin) 1 tab PO DAILY [facility] Last Admin: 06/09/18 10:03 Dose: 1 tab Pantoprazole Sodium (Protonix Ec Tab) 40 mg PO DAILY [facility] Last Admin: 06/09/18 10:03 Dose: 40 mg Potassium Chloride (Potassium Chloride Oral Soln) 20 meq PO DAILY [facility] Stop: 06/11/18 22:01 Risperidone (Risperdal Tab) 0.5 mg PO HS [facility] Last Admin: 06/08/18 21:38 Dose: 0.5 mg - Labs Labs: 06/09/18 07:23 06/09/18 07:23 PT 12.1 SECONDS (9.7-12.2) 06/03/18 05:28 INR 1.1 06/03/18 05:28 APTT 38 SECONDS (21-34) H 06/03/18 05:28 - Constitutional Appears: Well, No Acute Distress - Head Exam Head Exam: ATRAUMATIC, NORMAL INSPECTION - Eye Exam Eye Exam: EOMI, Normal appearance, PERRL Pupil Exam: NORMAL ACCOMODATION - ENT Exam ENT Exam: Mucous Membranes Moist - Neck Exam Neck Exam: Full ROM, Normal Inspection - Respiratory Exam Respiratory Exam: Clear to Ausculation Bilateral, NORMAL BREATHING PATTERN - Cardiovascular Exam Cardiovascular Exam: REGULAR RHYTHM, +S1, +S2 - Rectal Exam Rectal Exam: Deferred - Neurological Exam Neurological Exam: Alert, Awake, CN II-XII Intact Additional comments: oriented x 1-2 Assessment and Plan - Assessment and Plan (Free Text) Assessment: 88 yo female with multiple medical problems was admitted with Grm anegative sepsis, E. coli, Steve 1. Steve sec to ATN sec sepsis 2. E. coli sepsis, most likley source is urine 3. Anemia 4. hypokalemika 5. ? Dementia c/w iv abx, c/w iv fluids encourage po intake, nepro 1 can po bid check fe,tibc, ferritin will add epogen [id number] units sc 3x awek, hold for hgb >11 add nephrocaps 1 tab po qd agree with k+ supplement, check mg level in am
--- NOTE | 2018-06-09 20:49 | CP.PCM.PN ---
Subjective - Date & Time of Evaluation Date of Evaluation: 06/09/18 Time of Evaluation: 20:46 - Subjective Subjective: Patient today feeling well. She was awake this morning. But during the day she was more sleepy. Patient received PICC line today. On examination: Vital signs stable. Chest good air entry bilaterally. Regular heart sound nontender abdomen. I spoke to the patient's sister in detail. She is currently an antibiotic for gram-negative sepsis. Patient will be possibly discharge to rehabilitation if clinically stable, and also the renal function stable. On IV fluid. Objective - Vital Signs/Intake and Output Vital Signs (last 24 hours): Temp Pulse Resp BP Pulse Ox 97.7 F 76 18 136/65 98 06/09/18 08:11 06/09/18 08:11 06/09/18 08:11 06/09/18 08:11 06/09/18 08:11 Intake and Output: 06/09/18 06/10/18 18:59 06:59 Output Total 300 Balance -300 - Medications Medications: Current Medications Acetaminophen (Tylenol 325mg Tab) 650 mg PO Q4H PRN PRN Reason: Fever >100.4 F Last Admin: 06/03/18 15:51 Dose: 650 mg Divalproex Sodium (Depakote Sprinkles) 250 mg PO BID [facility] Last Admin: 06/09/18 17:34 Dose: 250 mg Ergocalciferol (Drisdol 50,000 Intl Units Cap) 1 cap PO QWK [facility] Last Admin: 06/03/18 12:00 Dose: 1 cap Famotidine (Pepcid) 20 mg PO DAILY [facility] Last Admin: 06/09/18 10:03 Dose: 20 mg Ceftriaxone Sodium 2 gm/ (Sodium Chloride) 100 mls @ 100 mls/hr IVPB Q24H [facility]; Protocol Last Admin: 06/09/18 17:35 Dose: 100 mls/hr Levothyroxine Sodium (Synthroid) 75 mcg PO DAILY@0630 [facility] Last Admin: 06/09/18 05:35 Dose: 75 mcg Memantine (Namenda) 5 mg PO BID [facility] Last Admin: 06/09/18 17:34 Dose: 5 mg Multivitamins (Hexavitamin) 1 tab PO DAILY [facility] Last Admin: 06/09/18 10:03 Dose: 1 tab Pantoprazole Sodium (Protonix Ec Tab) 40 mg PO DAILY [facility] Last Admin: 06/09/18 10:03 Dose: 40 mg Potassium Chloride (Potassium Chloride Oral Soln) 20 meq PO DAILY [facility] Stop: 06/11/18 22:01 Risperidone (Risperdal Tab) 0.5 mg PO HS [facility] Last Admin: 06/08/18 21:38 Dose: 0.5 mg - Labs Labs: 06/09/18 07:23 06/09/18 07:23 PT 12.1 SECONDS (9.7-12.2) 06/03/18 05:28 INR 1.1 06/03/18 05:28 APTT 38 SECONDS (21-34) H 06/03/18 05:28
[2018-06-09] MEDS: Potassium Chloride 20 mEq/15 ml LIQ UD PO SCH (21:51)
[2018-06-10 01:32] VITALS: RESP 20
[2018-06-10] MEDS: Levothyroxine 75 MCG TAB PO SCH (06:31)
[2018-06-10 08:54] LABS: BASO # 0.1 K/uL (0.0-0.2); BASO % 0.4 % (0.0-2.0); EOS # 0.4 K/uL (0.0-0.7); EOS % 3.1 % (0.0-4.0); HEMOGLOBIN 9.1 g/dL (11.0-16.0); LYMPH # 1.2 K/uL (1.0-4.3); LYMPH % 8.9 % (20.0-40.0); MEAN CELL VOLUME 91.2 fL (81.0-99.0); MEAN CORPUSCULAR HEMOGLOBIN 30.3 pg (27.0-31.0); MEAN CORPUSCULAR HGB CONC 33.3 g/dL (33.0-37.0); MONO # 0.7 K/uL (0.0-0.8); MONO % 5.6 % (0.0-10.0); NEUT # 10.7 K/uL (1.8-7.0); PLATELET COUNT 291 K/uL (130-400); RBC 2.99 Mil/uL (3.80-5.20)
[2018-06-10 09:25] LABS: ALBUMIN 2.5 g/dL (3.5-5.0); CALCIUM 8.5 mg/dl (8.6-10.4)
[2018-06-10 09:36] LABS: BANDS 1 % (0-2); EOSINOPHIL 1 % (0-4); LYMPHOCYTE 8 % (20-40); MONOCYTE 6 % (0-10); NEUTROPHIL 84 % (50-75); PLATELET ESTIMATE NORMAL (NORMAL); TOTAL CELLS COUNTED 100
[2018-06-10 09:38] LABS: ANISOCYTOSIS SLIGHT; HYPOCHROMIC SLIGHT; POIKILOCYTOSIS SLIGHT
[2018-06-10 09:39] LABS: OVALOCYTES SLIGHT; POLYCHROMIC SLIGHT; TARGET CELLS SLIGHT
[2018-06-10] MEDS ORDERED: Epoetin Alfa 10,000 unit/ml Dialysis SC SCH (10:00)
[2018-06-10] MEDS: Potassium Chloride 20 mEq/15 ml LIQ UD PO SCH (10:30)
[2018-06-10] MEDS: Pantoprazole 40 mg EC Tab PO SCH (10:31)
[2018-06-10] MEDS: Multiple Vitamins Tab PO SCH (10:31)
[2018-06-10] MEDS: Divalproex 125 mg Sprinkle Capsule PO SCH ×2 (10:31→18:43)
[2018-06-10] MEDS ORDERED: EPOETIN ALFA 10,000 UNIT/ML ML SC SCH (11:30)
--- NOTE | 2018-06-10 12:05 | CP.PCM.PN ---
Subjective - Date & Time of Evaluation Date of Evaluation: 06/10/18 Time of Evaluation: 12:05 - Subjective Subjective: Patient is more awake and responding. She was having some mild discomfort upon respiration. No chest pain. Had eating is very poor No distress noted Vital signs stable. Chest good air entry. Minimal expiratory wheezing noted 1+ pedal edema Labs today reviewed Improvement in the renal functions noted. Cultures recently negative. Currently patient is on antibiotic as per ID Assessment: 88-year-old female with history of bipolar disease. On medications. Patient also has a history of advanced dementia. Admitted with urinary tract infection, UTI, altered mental status suggestive of metabolic instability. Improving at this time. Acute renal insufficiency secondary to ATN. Improving. In my opinion patient can be discharged to rehabilitation if okay by infectious disease as well as renal. Will follow the patient Objective - Vital Signs/Intake and Output Vital Signs (last 24 hours): Temp Pulse Resp BP Pulse Ox 98.1 F 84 20 137/70 98 06/10/18 08:10 06/10/18 08:10 06/10/18 08:10 06/10/18 08:10 06/10/18 08:10 Intake and Output: 06/10/18 06/10/18 06:59 18:59 Intake Total 120 Output Total 500 Balance -380 - Medications Medications: Current Medications Acetaminophen (Tylenol 325mg Tab) 650 mg PO Q4H PRN PRN Reason: Fever >100.4 F Last Admin: 06/03/18 15:51 Dose: 650 mg Divalproex Sodium (Depakote Sprinkles) 250 mg PO BID [facility] Last Admin: 06/10/18 10:31 Dose: 250 mg Epoetin Max (Procrit) 10,000 unit SC TTS [facility] Ergocalciferol (Drisdol 50,000 Intl Units Cap) 1 cap PO QWK [facility] Last Admin: 06/03/18 12:00 Dose: 1 cap Famotidine (Pepcid) 20 mg PO DAILY [facility] Last Admin: 06/10/18 10:31 Dose: 20 mg Ceftriaxone Sodium 2 gm/ (Sodium Chloride) 100 mls @ 100 mls/hr IVPB Q24H [facility]; Protocol Last Admin: 06/09/18 17:35 Dose: 100 mls/hr Levothyroxine Sodium (Synthroid) 75 mcg PO DAILY@0630 [facility] Last Admin: 06/10/18 06:31 Dose: 75 mcg Memantine (Namenda) 5 mg PO BID [facility] Last Admin: 06/09/18 17:34 Dose: 5 mg Multivitamins (Hexavitamin) 1 tab PO DAILY [facility] Last Admin: 06/10/18 10:31 Dose: 1 tab Pantoprazole Sodium (Protonix Ec Tab) 40 mg PO DAILY [facility] Last Admin: 06/10/18 10:31 Dose: 40 mg Potassium Chloride (Potassium Chloride Oral Soln) 20 meq PO DAILY [facility] Stop: 06/11/18 22:01 Last Admin: 06/09/18 21:51 Dose: 20 meq Risperidone (Risperdal Tab) 0.5 mg PO HS [facility] Last Admin: 06/09/18 21:51 Dose: 0.5 mg - Labs Labs: 06/10/18 08:43 06/10/18 08:43 PT 12.1 SECONDS (9.7-12.2) 06/03/18 05:28 INR 1.1 06/03/18 05:28 APTT 38 SECONDS (21-34) H 06/03/18 05:28
--- NOTE | 2018-06-10 12:15 | CP.PCM.PN ---
Subjective - Date & Time of Evaluation Date of Evaluation: 06/10/18 Time of Evaluation: 12:15 - Subjective Subjective: pt is feeling better, no sob, pt is oob to chair Objective - Vital Signs/Intake and Output Vital Signs (last 24 hours): Temp Pulse Resp BP Pulse Ox 98.1 F 84 20 137/70 98 06/10/18 08:10 06/10/18 08:10 06/10/18 08:10 06/10/18 08:10 06/10/18 08:10 Intake and Output: 06/10/18 06/10/18 06:59 18:59 Intake Total 120 Output Total 500 Balance -380 - Medications Medications: Current Medications Acetaminophen (Tylenol 325mg Tab) 650 mg PO Q4H PRN PRN Reason: Fever >100.4 F Last Admin: 06/03/18 15:51 Dose: 650 mg Divalproex Sodium (Depakote Sprinkles) 250 mg PO BID [facility] Last Admin: 06/10/18 10:31 Dose: 250 mg Epoetin Max (Procrit) 10,000 unit SC TTS [facility] Ergocalciferol (Drisdol 50,000 Intl Units Cap) 1 cap PO QWK [facility] Last Admin: 06/03/18 12:00 Dose: 1 cap Famotidine (Pepcid) 20 mg PO DAILY [facility] Last Admin: 06/10/18 10:31 Dose: 20 mg Ceftriaxone Sodium 2 gm/ (Sodium Chloride) 100 mls @ 100 mls/hr IVPB Q24H [facility]; Protocol Last Admin: 06/09/18 17:35 Dose: 100 mls/hr Levothyroxine Sodium (Synthroid) 75 mcg PO DAILY@0630 [facility] Last Admin: 06/10/18 06:31 Dose: 75 mcg Memantine (Namenda) 5 mg PO BID [facility] Last Admin: 06/09/18 17:34 Dose: 5 mg Multivitamins (Hexavitamin) 1 tab PO DAILY [facility] Last Admin: 06/10/18 10:31 Dose: 1 tab Pantoprazole Sodium (Protonix Ec Tab) 40 mg PO DAILY [facility] Last Admin: 06/10/18 10:31 Dose: 40 mg Potassium Chloride (Potassium Chloride Oral Soln) 20 meq PO DAILY [facility] Stop: 06/11/18 22:01 Last Admin: 06/09/18 21:51 Dose: 20 meq Risperidone (Risperdal Tab) 0.5 mg PO HS [facility] Last Admin: 06/09/18 21:51 Dose: 0.5 mg - Labs Labs: 06/10/18 08:43 06/10/18 08:43 PT 12.1 SECONDS (9.7-12.2) 06/03/18 05:28 INR 1.1 06/03/18 05:28 APTT 38 SECONDS (21-34) H 06/03/18 05:28 - Constitutional Appears: Well, Non-toxic, No Acute Distress - Head Exam Head Exam: ATRAUMATIC, NORMAL INSPECTION - Eye Exam Eye Exam: EOMI, Normal appearance, PERRL Pupil Exam: NORMAL ACCOMODATION - ENT Exam ENT Exam: Mucous Membranes Moist - Neck Exam Neck Exam: Full ROM - Respiratory Exam Respiratory Exam: Clear to Ausculation Bilateral, NORMAL BREATHING PATTERN - Cardiovascular Exam Cardiovascular Exam: REGULAR RHYTHM, +S1, +S2 - GI/Abdominal Exam GI & Abdominal Exam: Soft, Normal Bowel Sounds - Rectal Exam Rectal Exam: Deferred - Extremities Exam Additional comments: no edema - Neurological Exam Neurological Exam: Alert, Awake, CN II-XII Intact Additional comments: oriented x2 - Skin Skin Exam: Normal Color, Warm Assessment and Plan - Assessment and Plan (Free Text) Assessment: 88 yo female with multiple medical problems was admitted with Grm anegative sepsis, E. coli, Steve 1. Steve sec to ATN sec sepsis 2. E. coli sepsis, most likley source is urine 3. Anemia 4. hypokalemika 5. ? Dementia s.cr is improving 1.9 c/w iv abx, c/w iv fluids encourage po intake, nepro 1 can po bid check fe,tibc, ferritin will add epogen [id number] units sc 3x awek, hold for hgb >11 add nephrocaps 1 tab po qd for possible d/c to [facility]
[2018-06-10] MEDS: cefTRIAXone 2 GM in Sodium Chloride 0.9% 100 ML IVPB SCH (18:00)
[2018-06-10 18:17] VITALS: BP 129/76; PULSE 86; TEMP 98; O2SAT 100
--- NOTE | 2018-06-10 18:51 | CP.PCM.PN ---
Objective - Vital Signs/Intake and Output Vital Signs (last 24 hours): Temp Pulse Resp BP Pulse Ox 98.0 F 86 20 129/76 100 06/10/18 15:05 06/10/18 15:05 06/10/18 15:05 06/10/18 15:05 06/10/18 15:05 Intake and Output: 06/10/18 06/10/18 06:59 18:59 Intake Total 120 Output Total 500 Balance -380 - Medications Medications: Current Medications Acetaminophen (Tylenol 325mg Tab) 650 mg PO Q4H PRN PRN Reason: Fever >100.4 F Last Admin: 06/03/18 15:51 Dose: 650 mg Divalproex Sodium (Depakote Sprinkles) 250 mg PO BID [facility] Last Admin: 06/10/18 18:43 Dose: 250 mg Epoetin Max (Procrit) 10,000 unit SC TTS [facility] Last Admin: 06/10/18 10:30 Dose: 10,000 unit Ergocalciferol (Drisdol 50,000 Intl Units Cap) 1 cap PO QWK [facility] Last Admin: 06/03/18 12:00 Dose: 1 cap Famotidine (Pepcid) 20 mg PO DAILY [facility] Last Admin: 06/10/18 10:31 Dose: 20 mg Ceftriaxone Sodium 2 gm/ (Sodium Chloride) 100 mls @ 100 mls/hr IVPB Q24H [facility]; Protocol Last Admin: 06/10/18 18:00 Dose: 100 mls/hr Levothyroxine Sodium (Synthroid) 75 mcg PO DAILY@0630 [facility] Last Admin: 06/10/18 06:31 Dose: 75 mcg Memantine (Namenda) 5 mg PO BID [facility] Last Admin: 06/10/18 18:44 Dose: 5 mg Multivitamins (Hexavitamin) 1 tab PO DAILY [facility] Last Admin: 06/10/18 10:31 Dose: 1 tab Pantoprazole Sodium (Protonix Ec Tab) 40 mg PO DAILY [facility] Last Admin: 06/10/18 10:31 Dose: 40 mg Potassium Chloride (Potassium Chloride Oral Soln) 20 meq PO DAILY [facility] Stop: 06/11/18 22:01 Last Admin: 06/10/18 10:30 Dose: 20 meq Risperidone (Risperdal Tab) 0.5 mg PO HS [facility] Last Admin: 06/09/18 21:51 Dose: 0.5 mg - Labs Labs: 06/10/18 08:43 06/10/18 08:43 PT 12.1 SECONDS (9.7-12.2) 06/03/18 05:28 INR 1.1 06/03/18 05:28 APTT 38 SECONDS (21-34) H 06/03/18 05:28 Assessment and Plan - Assessment and Plan (Free Text) Assessment: 88 yr old female admitted with pneumonia, sepsis, seen and examined. Awake, alert, out of bed on the chair. No sob or pain noticed. Discussed with DR Rosales, DR Julian and DR Beverly, plan to discharge to [facility] on iv antibiotics x 14 days.
--- NOTE | 2018-06-12 09:50 | CP.PCM.PN ---
Subjective - Date & Time of Evaluation Date of Evaluation: 06/08/18 Time of Evaluation: 09:50 - Subjective Subjective: The patient is feeling slightly better. She still and off fussy, but easily arousable. No chest pain or shortness of breath noted. Denies any nausea. Patient is following simple, she Vital signs stable. Currently on IV fluid. On antibiotic. Labs reviewed Nonspecific Assessment: 88-year-old female with history bipolar disease, altered mental status admitted with urinary tract infection, urosepsis and the severe sepsis associate with the fever chills. Hypotension. Improving at this time. Acute renal insufficiency secondary to sepsis stable. Will continue the current treatment. Will follow the patient. Will discuss with the infectious disease for PICC line and possible outpatient antibiotic Objective - Vital Signs/Intake and Output Vital Signs (last 24 hours): Temp Pulse Resp BP Pulse Ox 98.0 F 86 20 129/76 100 06/10/18 15:05 06/10/18 15:05 06/10/18 15:05 06/10/18 15:05 06/10/18 15:05 - Labs Labs: 06/10/18 08:43 06/10/18 08:43 PT 12.1 SECONDS (9.7-12.2) 06/03/18 05:28 INR 1.1 06/03/18 05:28 APTT 38 SECONDS (21-34) H 06/03/18 05:28
--- NOTE | 2018-06-12 09:51 | CP.PCM.DIS ---
Provider - Provider Date of Admission: 06/03/18 06:11 Attending physician: Noe Rosales MD Primary care physician: Jose Alejandro Sanches MD Time Spent in preparation of Discharge (in minutes): 45 Hospital Course - Lab Results Lab Results: Micro Results 06/09/18 13:41 Blood Blood Culture - Preliminary NO GROWTH AFTER 48 HOURS 06/09/18 11:37 Blood Blood Culture - Preliminary NO GROWTH AFTER 48 HOURS 06/03/18 21:45 Urine,Catheterized Urine Culture - Final No Growth (<1,000 CFU/ML) 06/03/18 05:36 Blood Blood Culture - Final Escherichia Coli 06/03/18 05:36 Blood Gram Stain - Final 06/03/18 05:35 Blood Blood Culture - Final Escherichia Coli 06/03/18 05:35 Blood Gram Stain - Final Most Recent Lab Values WBC 13.0 K/uL (4.8-10.8) H 06/10/18 08:43 RBC 2.99 Mil/uL (3.80-5.20) L 06/10/18 08:43 Hgb 9.1 g/dL (11.0-16.0) L 06/10/18 08:43 Hct 27.3 % (34.0-47.0) L 06/10/18 08:43 MCV 91.2 fL (81.0-99.0) 06/10/18 08:43 MCH 30.3 pg (27.0-31.0) 06/10/18 08:43 MCHC 33.3 g/dL (33.0-37.0) 06/10/18 08:43 RDW 15.0 % (11.5-14.5) H 06/10/18 08:43 Plt Count 291 K/uL (130-400) 06/10/18 08:43 MPV 7.0 fL (7.2-11.7) L 06/10/18 08:43 Neut % (Auto) 82.0 % (50.0-75.0) H 06/10/18 08:43 Lymph % (Auto) 8.9 % (20.0-40.0) L 06/10/18 08:43 [place] % (Auto) 5.6 % (0.0-10.0) 06/10/18 08:43 Eos % (Auto) 3.1 % (0.0-4.0) 06/10/18 08:43 Baso % (Auto) 0.4 % (0.0-2.0) 06/10/18 08:43 Neut # (Auto) 10.7 K/uL (1.8-7.0) H 06/10/18 08:43 Lymph # (Auto) 1.2 K/uL (1.0-4.3) 06/10/18 08:43 [place] # (Auto) 0.7 K/uL (0.0-0.8) 06/10/18 08:43 Eos # (Auto) 0.4 K/uL (0.0-0.7) 06/10/18 08:43 Baso # (Auto) 0.1 K/uL (0.0-0.2) 06/10/18 08:43 Neutrophils % (Manual) 84 % (50-75) H 06/10/18 08:43 Band Neutrophils % 1 % (0-2) 06/10/18 08:43 Lymphocytes % (Manual) 8 % (20-40) L 06/10/18 08:43 Monocytes % (Manual) 6 % (0-10) 06/10/18 08:43 Eosinophils % (Manual) 1 % (0-4) 06/10/18 08:43 Metamyelocytes % 1 % (0-0) H 06/09/18 07:23 Myelocytes % 1 % (0-0) H 06/09/18 07:23 Nucleated RBC % 1 % (0-0) H 06/05/18 07:39 Toxic Granulation Present 06/09/18 07:23 Platelet Estimate Normal (NORMAL) 06/10/18 08:43 Polychromasia Slight 06/10/18 08:43 Hypochromasia (manual) Slight 06/10/18 08:43 Poikilocytosis (manual Slight 06/10/18 08:43 Anisocytosis (manual) Slight 06/10/18 08:43 Target Cells Slight 06/10/18 08:43 Tear Drop Cells Slight 06/09/18 07:23 Ovalocytes Slight 06/10/18 08:43 [place] Cells Slight 06/09/18 07:23 PT 12.1 SECONDS (9.7-12.2) 06/03/18 05:28 INR 1.1 06/03/18 05:28 APTT 38 SECONDS (21-34) H 06/03/18 05:28 Puncture Site Rra 06/03/18 19:00 pCO2 29 mm/Hg (35-45) L 06/03/18 19:00 pO2 100 mm/Hg (80-100) 06/03/18 19:00 HCO3 24.8 mmol/L (21-28) 06/03/18 19:00 ABG pH 7.49 (7.35-7.45) H 06/03/18 19:00 ABG Total CO2 23.0 mmol/L (22-28) 06/03/18 19:00 ABG O2 Saturation 98.5 % (95-98) H 06/03/18 19:00 ABG Base Excess -0.2 mmol/L (-2.0-3.0) 06/03/18 19:00 John Test Pos 06/03/18 19:00 ABG Potassium 4.2 mmol/L (3.6-5.2) 06/03/18 19:00 VBG pH 7.39 (7.32-7.43) 06/03/18 05:25 VBG pCO2 40 mmHg (40-60) 06/03/18 05:25 VBG HCO3 23.2 mmol/L 06/03/18 05:25 VBG Total CO2 25.4 mmol/L (22-28) 06/03/18 05:25 VBG O2 Sat (Calc) 50.8 % (40-65) 06/03/18 05:25 VBG Base Excess -0.7 mmol/L (0.0-2.0) L 06/03/18 05:25 VBG Potassium 4.1 mmol/L (3.6-5.2) 06/03/18 05:25 A-a O2 Difference 63.0 mm/Hg 06/03/18 19:00 Respiratory Index 0.6 06/03/18 19:00 Sodium 137.0 mmol/l (132-148) 06/03/18 19:00 Chloride 107.0 mmol/L (98-107) 06/03/18 19:00 Glucose 135 mg/dl (65-105) H 06/03/18 19:00 Lactate 1.2 mmol/L (0.7-2.1) 06/03/18 19:00 FiO2 28.0 % 06/03/18 19:00 Sodium 145 mmol/L (132-148) 06/10/18 08:43 Potassium 4.1 mmol/L (3.6-5.2) 06/10/18 08:43 Chloride 119 mmol/L (98-107) H 06/10/18 08:43 Carbon Dioxide 23 mmol/L (22-30) 06/10/18 08:43 Anion Gap 8 (10-20) L 06/10/18 08:43 BUN 36 mg/dL (7-17) H 06/10/18 08:43 Creatinine 1.9 mg/dL (0.7-1.2) H 06/10/18 08:43 Est GFR ( Amer) 30 06/10/18 08:43 Est GFR (Non-Af Amer) 25 06/10/18 08:43 POC Glucose (mg/dL) 90 mg/dL (65-110) 06/10/18 17:11 Random Glucose 88 mg/dL (65-105) 06/10/18 08:43 Lactic Acid 1.2 mmol/L (0.7-2.1) 06/03/18 18:57 Calcium 8.5 mg/dl (8.6-10.4) L 06/10/18 08:43 Phosphorus 4.1 mg/dL (2.5-4.5) 06/10/18 08:43 Magnesium 1.9 mg/dL (1.6-2.3) 06/10/18 08:43 Total Bilirubin 0.3 mg/dL (0.2-1.3) 06/10/18 08:43 AST 36 U/L (14-36) D 06/10/18 08:43 ALT 31 U/L (9-52) 06/10/18 08:43 Alkaline Phosphatase 83 U/L (38-126) 06/10/18 08:43 Total Protein 4.9 g/dL (6.3-8.3) L 06/10/18 08:43 Albumin 2.5 g/dL (3.5-5.0) L 06/10/18 08:43 Globulin 2.4 gm/dL (2.2-3.9) 06/10/18 08:43 Albumin/Globulin Ratio 1.0 (1.0-2.1) 06/10/18 08:43 Procalcitonin 17.74 NG/ML (0.19-0.49) H 06/03/18 19:03 TSH 3rd Generation 1.45 mIU/L (0.46-4.68) 06/05/18 07:39 Arterial Blood Potassium 4.2 mmol/L (3.6-5.2) 06/03/18 19:00 Venous Blood Potassium 4.1 mmol/L (3.6-5.2) 06/03/18 05:25 Urine Color Yellow (YELLOW) 06/03/18 22:14 Urine Clarity Hazy (Clear) 06/03/18 22:14 Urine pH 5.0 (5.0-8.0) 06/03/18 22:14 Ur Specific [place] 1.014 (1.003-1.030) 06/03/18 22:14 Urine Protein 2+ mg/dL (NEGATIVE) H 06/03/18 22:14 Urine Glucose (UA) Normal mg/dL (Normal) 06/03/18 22:14 Urine Ketones Negative mg/dL (NEGATIVE) 06/03/18 22:14 Urine Blood 3+ (NEGATIVE) H 06/03/18 22:14 Urine Nitrate Negative (NEGATIVE) 06/03/18 22:14 Urine Bilirubin Negative (NEGATIVE) 06/03/18 22:14 Urine Urobilinogen Normal mg/dL (0.2-1.0) 06/03/18 22:14 Ur Leukocyte Esterase 3+ Grace/uL (Negative) H 06/03/18 22:14 Urine WBC (Auto) 135 /hpf (0-5) H 06/03/18 22:14 Urine RBC (Auto) 176 /hpf (0-3) H 06/03/18 22:14 Ur Squamous Epith Cells < 1 /hpf (0-5) 06/03/18 22:14 Urine Bacteria Few (<OCC) H 06/03/18 22:14 Ur Random Creatinine 63.5 mg/dL 06/03/18 08:13 Ur Random Sodium 33 mmol/L 06/03/18 08:13 Urine Chloride 27 mmol/L (32-290) L 06/03/18 08:13 Influenza Typ A,B (EIA) Negative for flu a/b (NEGATIVE) 06/03/18 05:30 - Hospital Course Hospital Course: Chief complaint: sent from [place] with not feeling well and weakness and increasing lethargic. History present illness: Ms. Brantley is a 87 year old female with PMHx of HTN, Hypothyroidism, and Dementia, Bipolar disease on chronic lithium treatment in the past . Recently hospitalized with a left arm fracture, and lithium toxicity While in the rehabilitation patient was not eating well, not drinking enough, and she was not participating much activities. During the day today patient was not feeling well, increasing weakness noted and low grade fever noted IN Ed pt evaluated and suspected infection and started on zosyn while in floor pt developed high fever and also blood culture showed GNB. now she is awake and responding no in distress. pt is confused. agitated. PMHx: HTN, Hypothyroidism, Dementia, Bipolar, chronic lithium treatment PSHx: Denied Meds: As per OCT, reviewed and confirmed All: NKDA SHx: Denied any tobacco, ETOH, or illicit drug use FHx: Unremarkable POA: Kei Winchester - sister - [phone] Review of systems: Patient is somewhat sleepy, arousable, moving all 4 extremities. She does not have any symptoms of pain, but the tremor and weakness noted. On examination: HEENT PERRLA, neck supple, responding to stimuli follows commands. No thyromegaly was noted and no cervical adenopathy noted Chest bilateral good air entry, no wheezing or rales noted CVS regular heart sound, no murmur Abdomen soft and no organomegaly Generalized tremor, mildly noted Patient is somewhat lethargic but Arousable and awake Labs noted. high creatinine high BUN GNB in blood Assessment and recommendation: 87-year-old female with history of hypertension, hypothyroidism, dementia,, bipolar disease on chronic lithium treatment in the past Recently had left radial fracture, closed reduction, cast. Multiple falls. Now with AMS and weakness, with fever and sickness. GNB bacteremia and severe sepsis . possible cystitis will get UC on antibiotic IVF renal and ID eval DVt and GI prophylaxis and will f/u Course in the Hospital: Patient initially admitted to the hospital with acute altered mental status. Urinary tract infection was noted from urine analysis. Patient now started on IV fluid. Antibiotic started. Patient also noted to have elevated creatine level She was more drowsy and dehydrated. Infectious disease evaluation, nephrology evaluation was called in. Agreed with the infectious disease plan of antibiotic and also IV fluid. Patient slowly improved in the renal function, and also she was feeling slightly better. But she is having some hot a mean eating food. Patient has an advanced dementia, associate with the some difficult swallowing. But over the course of next few days patient afebrile, creatine level is impro ving, discuss with infectious disease and renal, patient is stable for discharge plan I also spoke to the patient's sister pain Patient will be discharged to rehabilitation. Patient will receive antibiotic. She will continue the antibiotic as an outpatient. Patient received a PICC line on 06/09/2018. She'll continue the antibiotic as per ID. Patient will continue to receive Rocephin 2 g IV daily for 14 days. She will continue to receive valproic acid 250 mg twice a day Risperidone 0.5 mg at bedtime Number and the 5 mg daily Levothyroxine 75 g daily Atorvastatin 20 daily. Patient will continue the physical therapy. She will follow the by Dr. Sanches in the rehabilitation. Will follow the patient. Discharge Exam - Head Exam Head Exam: ATRAUMATIC, NORMAL INSPECTION Discharge Plan - Follow Up Plan Condition: FAIR Disposition: REHAB FACILITY/REHAB UNIT Instructions: Heart Healthy Diet, Pneumonia, Adult (DC), Sepsis, Adult (DC), Fatigue (DC) Referrals: Jose Alejandro Sanches MD [Primary Care Provider] - Noe Rosales MD [Staff Provider] -
== END 2018-06-10 19:52 | DRG 871 ==
LOC: C.ER 04:46 → SUPCPDRO 04:46 → C.9E 06:11 → C.6T 06:29
PROVIDERS: ADMIT Internal Medicine; ATTEND Internal Medicine
PROC: 02HV33Z Insertion of Infusion Device into Superior Vena Cava, Percutaneous Approach (ICD-10-PCS; principal; 2018-06-09)
DX: A41.51 Sepsis due to Escherichia coli [E. coli] (principal); J18.9 Pneumonia, unspecified organism; N17.0 Acute kidney failure with tubular necrosis; F03.91 Unspecified dementia, unspecified severity, with behavioral disturbance; N39.0 Urinary tract infection, site not specified; E87.2 Acidosis; E87.0 Hyperosmolality and hypernatremia; R65.20 Severe sepsis without septic shock; F41.9 Anxiety disorder, unspecified; I10 Essential (primary) hypertension; E03.9 Hypothyroidism, unspecified; F31.9 Bipolar disorder, unspecified; R41.0 Disorientation, unspecified; R45.1 Restlessness and agitation; E86.0 Dehydration; E87.6 Hypokalemia